=== PATIENT | male | born 1965 | race Caucasian/White ===

== ENCOUNTER 2020-08-07 08:01 | Outpatient (CLI) | payer BC, SELFPAY ==
[2020-08-07 09:34] LABS: Alanine Aminotransferase 27 U/L (16-63); Albumin Level 4.2 g/dL (3.4-5.0); Alkaline Phosphatase 74 U/L (46-116); Anion Gap 7 mmol/L (8-16); Aspartate Amino Transferase 14 U/L (15-37); Bilirubin,Total 0.4 mg/dL (0.00-1.00); Blood Urea Nitrogen 17 mg/dL (7-18); Calcium 9.1 mg/dL (8.5-10.1); Carbon Dioxide 29 mmol/L (21-32); Chloride 100 mmol/L (98-108); Cholesterol 183 mg/dL (0-200); Creatine Kinase 77 U/L (39-308); Estimated Glomerular Filt Rate > 60; Glucose 99 mg/dL (70-99); HDL Direct 50 mg/dL (40-60); LDL Cholesterol Calculated 125 mg/dL (<130); Osmolality Calculated 283 mOsm/kg (285-295); Prostate Specific Antigen 0.3 ng/mL (< OR = 4.0); Sodium 136 mmol/L (136-145); Total Protein 6.8 g/dL (6.4-8.2); Triglycerides 40 mg/dL (0-150)
[2020-08-07 10:40] LABS: Add Urine Microscopic? NO; Appearance Urine Clear (Clear); Bilirubin Urine Negative (Negative); Blood Urine Negative (Negative); Color Urine Yellow (Yellow); Glucose Urine UA Negative (Negative); Ketones Urine Negative (Negative); Leukocyte Esterase Ur Negative LEU/UL (Negative); Nitrate Urine Negative (Negative); Protein Urine Negative (Negative); Specific Grav Ur 1.015 (1.010-1.020); Urobilinogen Urine 0.2 mg/dL (0.2-1.0); pH Urine 5.5 (5.0-8.0)
== END 2020-08-07 08:02 | disposition home or self-care (01) ==
LOC: CHSLAB 08:03
PROVIDERS: PCP Internal Medicine; Visit Provider Internal Medicine
DX: Z00.00 Encounter for general adult medical examination without abnormal findings (principal); Z12.5 Encounter for screening for malignant neoplasm of prostate
CPT/HCPCS: 36415; 80053; 80061; 81003; 82550; 84153; G0103

== ENCOUNTER 2020-08-26 16:13 | Outpatient (CLI) | payer BC, SELFPAY ==
[2020-08-26 16:29] LABS: Basophils Absolute Auto 0.04 K/mm3 (0.00-0.10); Basophils Percent Auto 0.5 % (0.0-1.0); Eosinophils Absolute Auto 0.03 K/mm3 (0.02-0.50); Eosinophils Percent Auto 0.4 % (1.0-6.0); Hemoglobin 12.7 g/dL (14.0-18.0); Immature Granulocyte Absolute 0.03 K/mm3 (0.00-0.00); Immature Granulocyte Percent A 0.4 % (0.0-0.0); Immature Reticulocyte Fraction 6.6 % (2.0-16.52); Lymphocytes Absolute Auto 2.32 K/mm3 (1.10-4.50); Lymphocytes Percent Auto 29.1 % (18.0-42.0); Mean Corpuscular HGB Conc 36.3 g/dL (32.0-36.0); Mean Corpuscular Hemoglobin 33.5 pg (27.0-31.0); Mean Corpuscular Volume 92.3 fL (78.0-102.0); Mean Platelet Volume 8.2 fl (8.7-11.0); Monocytes Absolute Auto 0.59 K/mm3 (0.10-0.90); Monocytes Percent Auto 7.4 % (2.0-11.0); Neutrophils Percent Auto 62.2 % (50.0-70.0); Platelet Count Result 300 K/mm3 (150-420); Red Blood Count 3.79 M/mm3 (4.70-6.10); Red Cell Distribution Width 11.9 % (11.6-14.4); Reticulocyte Hemoglobin Conten 37.5 pg (28.0-35.0); Reticulocyte Percent 1.61 % (0.50-1.50); Reticulocytes Absolute 0.06 M/mm3 (0.02-0.1)
[2020-08-26 17:22] LABS: Ferritin 226 ng/mL (26-388); Iron 88 ug/dL (65-175); Percent Iron Saturation 28 % (12-57); Vitamin B12 567 pg/mL (193-986)
[2020-08-29 12:31] LABS: Red Blood Cell Folate 980 ng/mL RBC (>280)
== END 2020-08-26 16:14 | disposition home or self-care (01) ==
LOC: CHSLAB 16:15
PROVIDERS: PCP Internal Medicine; Visit Provider Internal Medicine
DX: D64.9 Anemia, unspecified (principal)
CPT/HCPCS: 36415; 82607; 82728; 82747; 83540; 83550; 85025; 85046

== ENCOUNTER 2020-08-30 16:42 | Outpatient (CLI) | payer BC, SELFPAY | END 2020-08-30 16:43 | disposition home or self-care (01) | LOC: CHSLAB 16:44 | PROVIDERS: PCP Internal Medicine; Visit Provider Internal Medicine | DX: L81.4 Other melanin hyperpigmentation (principal); L82.0 Inflamed seborrheic keratosis; D22.39 Melanocytic nevi of other parts of face | CPT/HCPCS: 88305 ==

== ENCOUNTER 2020-09-02 13:37 | Outpatient (CLI) | payer BC, SELFPAY ==
[2020-09-02 13:55] LABS: Occult Blood Negative (Negative)
[2020-09-02 13:57] LABS: Occult Blood Negative (Negative)
[2020-09-02 13:58] LABS: Occult Blood Negative (Negative)
== END 2020-09-02 13:38 | disposition home or self-care (01) ==
LOC: CHSLAB 13:38
PROVIDERS: PCP Internal Medicine; Visit Provider Internal Medicine
DX: D64.9 Anemia, unspecified (principal); K52.9 Noninfective gastroenteritis and colitis, unspecified
CPT/HCPCS: 82272

== ENCOUNTER 2021-03-21 17:18 | Emergency (ER) | payer BC, SELFPAY ==
[2021-03-21] VITALS (7 sets, daily range): BP systolic 90–111; BP diastolic 60–76; PULSE 60–183; RESP 16–20; TEMP 36.6; O2SAT 98–99
--- NOTE | ~2021-03-21 | XR_ITS ---
EXAMINATION: XR chest 1V portable INDICATION: Supraventricular tachycardia TECHNIQUE: Portable AP chest at 1753 hours COMPARISON: 11/30/2016 FINDINGS: The lungs are free of acute opacities. There is no pleural effusion or pneumothorax. The ca rdiomediastinal silhouette is normal. The visualized bones and soft tissues are unremarkable. IMPRESSION: 1. No acute cardiopulmonary abnormality. Reviewed, dictated and finalized at location A.
--- NOTE | 2021-03-21 17:31 | ECG_ITS ---
Measurements Intervals [place] Rate: 182 P: WA: 0 QRS: 52 QRSD: 106 T: 90 QT: 247 QTc: 430 Interpretive Statements SUPRAVENTRICULAR TACHYCARDIA INCOMPLETE RIGHT BUNDLE BRANCH BLOCK ST-T WAVE ABNORMALITY IN DIFFUSE LEADS- CONSIDER ISCHEMIA OR RATE RELATED ABNORMAL ECG Electronically Signed On 03-21-2021 20:14:07 CDT by Rashard Quinonez D.O.
--- NOTE | 2021-03-21 17:43 | ECG_ITS ---
Measurements Intervals [place] Rate: 70 P: 65 NE: 223 QRS: 52 QRSD: 109 T: 56 QT: 395 QTc: 428 Interpretive Statements SINUS RHYTHM WITH FIRST DEGREE AV BLOCK ATRIAL PREMATURE COMPLEX INCOMPLETE RIGHT BUNDLE BRANCH BLOCK ABNORMAL ECG Electronically Signed On 03-21-2021 20:14:26 CDT by Rashard Quinonez D.O.
[2021-03-21] MEDS: dilTIAZem HCl INJ 25 MG/5 ML VIAL IV PUSH (17:47)
[2021-03-21] MEDS: SODIUM CHLORIDE 0.9% IV 1,000 ML 999 ML (17:47)
[2021-03-21 17:54] LABS: Basophils Absolute Auto 0.04 K/mm3 (0.00-0.10); Basophils Percent Auto 0.6 % (0.0-1.0); Eosinophils Absolute Auto 0.12 K/mm3 (0.02-0.50); Eosinophils Percent Auto 1.7 % (1.0-6.0); Hematocrit 32.7 % (40.0-54.0); Hemoglobin 11.3 g/dL (14.0-18.0); Immature Granulocyte Absolute 0.02 K/mm3 (0.00-0.00); Immature Granulocyte Percent A 0.3 % (0.0-0.0); Lymphocytes Absolute Auto 2.99 K/mm3 (1.10-4.50); Lymphocytes Percent Auto 41.8 % (18.0-42.0); Mean Corpuscular HGB Conc 34.6 g/dL (32.0-36.0); Mean Corpuscular Hemoglobin 32.9 pg (27.0-31.0); Mean Corpuscular Volume 95.3 fL (78.0-102.0); Mean Platelet Volume 8.1 fl (8.7-11.0); Monocytes Absolute Auto 0.57 K/mm3 (0.10-0.90); Neutrophils Absolute Auto 3.4 K/mm3 (1.7-7.2); Neutrophils Percent Auto 47.6 % (50.0-70.0); Platelet Count Result 268 K/mm3 (150-420); Red Blood Count 3.43 M/mm3 (4.70-6.10); White Blood Count 7.2 K/mm3 (4.8-10.8)
[2021-03-21 18:11] LABS: Alanine Aminotransferase 31 U/L (16-63); Albumin Level 3.7 g/dL (3.4-5.0); Alkaline Phosphatase 64 U/L (46-116); Anion Gap 10 mmol/L (8-16); Aspartate Amino Transferase 24 U/L (15-37); Bilirubin,Total 0.5 mg/dL (0.00-1.00); Blood Urea Nitrogen 20 mg/dL (7-18); Calcium 8.5 mg/dL (8.5-10.1); Carbon Dioxide 25 mmol/L (21-32); Chloride 99 mmol/L (98-108); Estimated CRCL calculation 61 ml/min; Estimated Glomerular Filt Rate > 60; Glucose 155 mg/dL (70-99); Osmolality Calculated 283 mOsm/kg (285-295); Potassium 3.6 mmol/L (3.5-5.1); Sodium 134 mmol/L (136-145); Total Protein 6.1 g/dL (6.4-8.2); Troponin I 5.2 ng/L (0.00-60.4)
--- NOTE | 2021-03-21 19:02 | PC.NURSE ---
paged cardiolgy second time
--- NOTE | 2021-03-21 19:48 | PC.NURSE ---
called again for cardilogy, no return call. Called Kaylee for a consult
--- NOTE | 2021-03-21 20:12 | ED.GENADULT ---
HPI - General Adult General Chief complaint: Unspecified Stated complaint: afib and high heart rate Time Seen by Provider: 03/21/21 17:20 Source: patient and RN notes reviewed Mode of arrival: ambulatory Limitations: no limitations History of Present Illness complaint: heart racing and palpitations x this PM. Onset (ago): hour(s) (1) Location: chest Radiation: non-radiation Severity: moderate Severity scale (1-10): 3 Quality: dull and constant Exacerbating factors: none Associated symptoms: denies other symptoms Treatments prior to arrival: none Related Data Home Medications Medication Instructions Recorded Confirmed albuterol sulfate 90 mcg/actuation 2 puff INHALATION Q4H PRN gm 03/18/20 03/21/21 aerosol inhaler cetirizine 10 mg tablet 10 mg PO DAILY 03/18/20 03/21/21 propafenone 300 mg tablet 300 mg PO Q12H 03/18/20 03/21/21 Allergies Allergy/AdvReac Type Severity Reaction Status Date / Time No Known Allergies Allergy Verified 04/23/20 14:21 Review of Systems Review of Systems: All systems reviewed & are unremarkable except as noted in HPI and below Cardiovascular: Cardiovascular: Reports rapid heart rate PMFSH Past Medical History Medical History Asthma Chronic atrial fibrillation, unspecified History of carpal tunnel syndrome Seasonal allergies Suspected sleep apnea Surgical History Surgical History History of carpal tunnel surgery Social History Social History Smoking status: Former smoker Smoking end date: 06/25/09 Exam Const: General: cooperative, no acute distress and well groomed Nutritional Appearance: well nourished Orientation/consciousness: patient oriented x3 Limitations: no limitations HENMT: Head: normal to inspection, normocephalic and atraumatic Ears: hearing grossly normal bilaterally, external ears normal and TM's normal bilaterally General nose exam: Normal external nose present and Normal nares present Face and sinus: normal facial exam Mouth: Yes Normal oral and palatal mucosa present, Yes oropharynx normal and Yes moist mucous membranes Teeth and gingiva: dentition normal Eyes: General: appearance normal, both eyes and all related structures Pupils: Equal, round and reactive pupils present EOM: EOMs intact bilaterally Neck: Neck: normal visual inspection, full ROM, no lymphadenopathy and trachea midline Chest: Chest palpation & inspection: normal inspection of the chest Resp: Effort & Inspection: normal respiratory effort and able to speak in complete sentences Cardio: Rate: tachycardic Rhythm: abnormal rhythm Peripheral pulses: Peripheral pulses 2+ throughout GI: Inspection: normal to inspection GI Palp: No abdominal tenderness Percussion: Yes normal to percussion Auscultation: normal bowel sounds Back/Spine/Pelvis: Back: no CVA tenderness Thoracic/Lumbar Spine: thoracic and lumbar spine normal to inspection Skin: General skin exam: normal color and no rashes or lesions noted Neuro: General: patient oriented x3, gait normal, no focal motor deficits and CN's II-XI intact bilaterally Cranial nerves: Yes CN's II-XII intact bilaterally, Yes Equal, round and reactive pupils present and Yes Bilaterally intact EOM present Cognition (Neuro): normal cognition Speech: normal speech Gait exam (Neuro): Normal gait present Motor exam (neuro): 5/5 motor strength present throughout Extrem: General: normal to inspection and full ROM Psych: Appearance: grossly normal and well kempt Mental Status: mental status grossly normal Speech and movement: Normal speech and movement present Affect: normal affect Attitude: cooperative Thought process: Normal thought process present Thought content: Yes Normal thought content present Insight: Good insight present (Psych) Judgement: Good judgement prese
== END 2021-03-21 20:15 | disposition home or self-care (01) ==
PROVIDERS: Emergency Provider Emergency Medicine; PCP Internal Medicine
DX: I47.1 Supraventricular tachycardia (principal)
CPT/HCPCS: 36415; 71045; 80053; 84484; 85025; 93005; 96365; 99283; 99284; J7030

== ENCOUNTER 2021-04-14 16:58 | Outpatient (CLI) | payer BC, SELFPAY ==
[2021-04-14 17:13] LABS: Basophils Absolute Auto 0.05 K/mm3 (0.00-0.10); Basophils Percent Auto 0.7 % (0.0-1.0); Eosinophils Absolute Auto 0.06 K/mm3 (0.02-0.50); Eosinophils Percent Auto 0.8 % (1.0-6.0); Hematocrit 38.3 % (40.0-54.0); Hemoglobin 13.1 g/dL (14.0-18.0); Immature Granulocyte Absolute 0.02 K/mm3 (0.00-0.00); Immature Granulocyte Percent A 0.3 % (0.0-0.0); Lymphocytes Absolute Auto 3.39 K/mm3 (1.10-4.50); Lymphocytes Percent Auto 45.1 % (18.0-42.0); Mean Corpuscular HGB Conc 34.2 g/dL (32.0-36.0); Mean Corpuscular Hemoglobin 33.2 pg (27.0-31.0); Mean Corpuscular Volume 97.2 fL (78.0-102.0); Mean Platelet Volume 8.6 fl (8.7-11.0); Monocytes Absolute Auto 0.61 K/mm3 (0.10-0.90); Monocytes Percent Auto 8.1 % (2.0-11.0); Neutrophils Absolute Auto 3.4 K/mm3 (1.7-7.2); Platelet Count Result 272 K/mm3 (150-420); Red Blood Count 3.94 M/mm3 (4.70-6.10); Red Cell Distribution Width 12.3 % (11.6-14.4); White Blood Count 7.5 K/mm3 (4.8-10.8)
[2021-04-14 17:39] LABS: Alanine Aminotransferase 52 U/L (16-63); Albumin Level 4.2 g/dL (3.4-5.0); Alkaline Phosphatase 72 U/L (46-116); Anion Gap 9 mmol/L (8-16); Aspartate Amino Transferase 19 U/L (15-37); Bilirubin,Total 0.4 mg/dL (0.00-1.00); Blood Urea Nitrogen 21 mg/dL (7-18); Calcium 8.8 mg/dL (8.5-10.1); Carbon Dioxide 29 mmol/L (21-32); Chloride 99 mmol/L (98-108); Estimated Glomerular Filt Rate 57; Free T3 2.26 pg/mL (2.18-3.98); Glucose 92 mg/dL (70-99); Magnesium 2.1 mg/dL (1.8-2.4); Osmolality Calculated 287 mOsm/kg (285-295); Potassium 4.9 mmol/L (3.5-5.1); Sodium 137 mmol/L (136-145); Thyroid Stimulating Hormone 1.36 uIU/mL (0.36-3.74); Total Protein 7.1 g/dL (6.4-8.2)
== END 2021-04-14 16:59 | disposition home or self-care (01) ==
LOC: CHSLAB 16:59
PROVIDERS: PCP Internal Medicine; Visit Provider Internal Medicine
DX: I47.1 Supraventricular tachycardia (principal)
CPT/HCPCS: 36415; 80053; 83735; 84439; 84443; 84481; 85025

== ENCOUNTER 2021-06-06 11:38 | Outpatient (CLI) | payer BC, SELFPAY ==
[2021-06-06 13:05] LABS: Influenza A QL RT-PCR Negative (Negative); Influenza B QL RT-PCR Negative (Negative); SARS-CoV-2 RNA PCR Negative (Negative)
== END 2021-06-06 11:39 | disposition home or self-care (01) ==
LOC: CHSLAB 11:41
PROVIDERS: PCP Internal Medicine; Visit Provider Internal Medicine
DX: J06.9 Acute upper respiratory infection, unspecified (principal)
CPT/HCPCS: 87502; C9803; U0003; U0005

== ENCOUNTER 2022-02-07 14:09 | Outpatient (CLI) | payer BC, SELFPAY ==
[2022-02-07 14:39] LABS: Anion Gap 8 mmol/L (8-16); Blood Urea Nitrogen 27 mg/dL (7-18); Calcium 9.1 mg/dL (8.5-10.1); Carbon Dioxide 27 mmol/L (21-32); Chloride 99 mmol/L (98-108); Estimated Glomerular Filt Rate > 60; Glucose 107 mg/dL (70-99); Osmolality Calculated 283 mOsm/kg (285-295); Potassium 4.4 mmol/L (3.5-5.1); Sodium 134 mmol/L (136-145)
--- NOTE | 2022-02-07 14:50 | ECG_ITS ---
Rate 115 ME 0 QRSd 90 QT 330 QTc 457 --Melvin-- P QRS 29 T 34 ATRIAL FIBRILLATION WITH RAPID VENTRICULAR RESPONSE NONSPECIFIC ST & T-WAVE ABNORMALITY ABNORMAL RHYTHM ECG Electronically Signed On 02-07-2022 15:16:36 CDT by Gerber Fernando M.D. COMPARED TO ECG 03/21/2021 17:48:19 ATRIAL FIBRILLATION NOW PRESENT T-WAVE ABNORMALITY NOW PRESENT MTDD
== END 2022-02-07 14:10 | disposition home or self-care (01) ==
LOC: CHSLAB 14:14
PROVIDERS: PCP Internal Medicine
DX: Z51.81 Encounter for therapeutic drug level monitoring (principal); Z79.899 Other long term (current) drug therapy
CPT/HCPCS: 36415; 80048; 93005

== ENCOUNTER 2022-04-28 11:04 | Outpatient (CLI) | payer BC, SELFPAY ==
[2022-04-28 11:20] LABS: Basophils Absolute Auto 0.05 K/mm3 (0.00-0.10); Basophils Percent Auto 0.7 % (0.0-1.0); Eosinophils Absolute Auto 0.04 K/mm3 (0.02-0.50); Eosinophils Percent Auto 0.6 % (1.0-6.0); Hematocrit 37.9 % (40.0-54.0); Hemoglobin 13.5 g/dL (14.0-18.0); Immature Granulocyte Absolute 0.02 K/mm3 (0.00-0.00); Immature Granulocyte Percent A 0.3 % (0.0-0.0); Lymphocytes Absolute Auto 2.51 K/mm3 (1.10-4.50); Lymphocytes Percent Auto 37.6 % (18.0-42.0); Mean Corpuscular HGB Conc 35.6 g/dL (32.0-36.0); Mean Corpuscular Hemoglobin 33.6 pg (27.0-31.0); Mean Corpuscular Volume 94.3 fL (78.0-102.0); Mean Platelet Volume 8.6 fl (8.7-11.0); Monocytes Absolute Auto 0.61 K/mm3 (0.10-0.90); Monocytes Percent Auto 9.1 % (2.0-11.0); Neutrophils Absolute Auto 3.4 K/mm3 (1.7-7.2); Neutrophils Percent Auto 51.7 % (50.0-70.0); Platelet Count Result 259 K/mm3 (150-420); Red Blood Count 4.02 M/mm3 (4.70-6.10); Red Cell Distribution Width 11.8 % (11.6-14.4); White Blood Count 6.7 K/mm3 (4.8-10.8)
[2022-04-28 11:48] LABS: Alanine Aminotransferase 35 U/L (16-63); Albumin Level 4.2 g/dL (3.4-5.0); Alkaline Phosphatase 70 U/L (46-116); Anion Gap 9 mmol/L (8-16); Aspartate Amino Transferase 23 U/L (15-37); Bilirubin,Total 0.7 mg/dL (0.00-1.00); Blood Urea Nitrogen 25 mg/dL (7-18); Calcium 9.3 mg/dL (8.5-10.1); Carbon Dioxide 25 mmol/L (21-32); Chloride 100 mmol/L (98-108); Cholesterol 160 mg/dL (0-200); Creatine Kinase 183 U/L (39-308); Estimated Glomerular Filt Rate > 60; Free T3 2.04 pg/mL (2.18-3.98); Free T4 Free Thyroxine 0.98 ng/dL (0.76-1.46); Glucose 105 mg/dL (70-99); HDL Direct 63 mg/dL (40-60); LDL Cholesterol Calculated 87 mg/dL (<130); Osmolality Calculated 282 mOsm/kg (285-295); Potassium 4.6 mmol/L (3.5-5.1); Prostate Specific Antigen 0.4 ng/mL (< OR = 4.0); Sodium 134 mmol/L (136-145); Thyroid Stimulating Hormone 1.18 uIU/mL (0.36-3.74); Total Protein 7.2 g/dL (6.4-8.2); Triglycerides 52 mg/dL (0-150)
[2022-04-28 12:35] LABS: Appearance Urine Clear (Clear); Bilirubin Urine Negative (Negative); Color Urine Yellow (Yellow); Glucose Urine UA Negative (Negative); Ketones Urine Trace (Negative); Leukocyte Esterase Ur Negative LEU/UL (Negative); Nitrate Urine Negative (Negative); Protein Urine Negative (Negative); Specific Grav Ur 1.015 (1.010-1.020); Urobilinogen Urine 0.2 mg/dL (0.2-1.0)
[2022-04-28 12:40] LABS: Add Urine Microscopic? YES; Bacteria Urine None seen /hpf; Blood Urine Trace-lysed (Negative); RBC Urine None seen /hpf (0-2); Squamous Epithelial Cell Urine Rare /hpf (Few); WBC Urine None seen /hpf (0-3)
== END 2022-04-28 11:05 | disposition home or self-care (01) ==
LOC: CHSLAB 11:06
PROVIDERS: PCP Internal Medicine; Visit Provider Internal Medicine
DX: Z00.00 Encounter for general adult medical examination without abnormal findings (principal); Z12.5 Encounter for screening for malignant neoplasm of prostate
CPT/HCPCS: 36415; 80053; 80061; 81001; 82550; 84153; 84439; 84443; 84481; 85025; G0103

== ENCOUNTER 2023-08-03 16:51 | Outpatient (CLI) | payer BC, SELFPAY ==
--- NOTE | ~2023-08-03 | XR_ITS ---
EXAMINATION: XR chest 2V DATE: 08/03/2023 17:51 INDICATION: Cough. TECHNIQUE: Frontal and lateral views of the chest were obtained on 3 radiographs. COMPARISON: Chest single view 03/21/2021 FINDINGS: There is no pneumonia, pleural effusion, or pneumothorax. The heart size is normal. IMPRESSION: 1. No acute cardiopulmonary disease. Reviewed, dictated and finalized at location E. INE FURNACE TENDER
[2023-08-03 17:42] LABS: SARS-CoV-2 RNA PCR Negative (Negative)
[2023-08-03 17:43] LABS: Influenza A QL RT-PCR Negative (Negative); Influenza B QL RT-PCR Negative (Negative); RSV RNA, RT-PCR Negative (Negative)
== END 2023-08-03 16:52 | disposition home or self-care (01) ==
LOC: CHSLAB 16:54
PROVIDERS: PCP Internal Medicine; Visit Provider Internal Medicine
DX: R05.9 Cough, unspecified (principal); Z20.822 Contact with and (suspected) exposure to COVID-19
CPT/HCPCS: 71046; 87637

== ENCOUNTER 2023-08-04 09:30 | Outpatient (CLI) | payer BC, SELFPAY ==
[2023-08-04 09:44] LABS: Basophils Absolute Auto 0.03 K/mm3 (0.00-0.10); Basophils Percent Auto 0.6 % (0.0-1.0); Eosinophils Absolute Auto 0.03 K/mm3 (0.02-0.50); Eosinophils Percent Auto 0.6 % (1.0-6.0); Hemoglobin 12.8 g/dL (14.0-18.0); Immature Granulocyte Absolute 0.01 K/mm3 (0.00-0.00); Immature Granulocyte Percent A 0.2 % (0.0-0.0); Lymphocytes Absolute Auto 2.32 K/mm3 (1.10-4.50); Lymphocytes Percent Auto 49.6 % (18.0-42.0); Mean Corpuscular HGB Conc 33.7 g/dL (32.0-36.0); Mean Platelet Volume 8.2 fl (8.7-11.0); Monocytes Absolute Auto 0.46 K/mm3 (0.10-0.90); Monocytes Percent Auto 9.8 % (2.0-11.0); Neutrophils Absolute Auto 1.8 K/mm3 (1.7-7.2); Neutrophils Percent Auto 39.2 % (50.0-70.0); Platelet Count Result 283 K/mm3 (150-420); Red Cell Distribution Width 12.3 % (11.6-14.4); White Blood Count 4.7 K/mm3 (4.8-10.8)
[2023-08-04 10:03] LABS: Hemoglobin A1C 5.2 % (<5.7)
[2023-08-04 10:21] LABS: Alanine Aminotransferase 29 U/L (16-63); Albumin Level 3.5 g/dL (3.4-5.0); Alkaline Phosphatase 66 U/L (46-116); Anion Gap 7 mmol/L (8-16); Aspartate Amino Transferase 21 U/L (15-37); Bilirubin,Total 0.5 mg/dL (0.00-1.00); Blood Urea Nitrogen 24 mg/dL (7-18); Calcium 8.4 mg/dL (8.5-10.1); Carbon Dioxide 29 mmol/L (21-32); Chloride 98 mmol/L (98-108); Cholesterol 151 mg/dL (0-200); Creatine Kinase 119 U/L (39-308); Estimated Glomerular Filt Rate > 60; Free T3 1.94 pg/mL (2.18-3.98); Glucose 104 mg/dL (70-99); HDL Direct 55 mg/dL (40-60); LDL Cholesterol Calculated 92 mg/dL (<130); Osmolality Calculated 282 mOsm/kg (285-295); Potassium 4.5 mmol/L (3.5-5.1); Sodium 134 mmol/L (136-145); Thyroid Stimulating Hormone 0.93 uIU/mL (0.36-3.74); Total Protein 6.4 g/dL (6.4-8.2); Triglycerides < 22 mg/dL (0-150)
[2023-08-04 10:49] LABS: Appearance Urine Clear (Clear); Bilirubin Urine Negative (Negative); Color Urine Light Yellow (Yellow); Glucose Urine UA Negative (Negative); Ketones Urine Negative (Negative); Nitrate Urine Negative (Negative); Protein Urine Negative (Negative); Urobilinogen Urine 0.2 mg/dL (0.2-1.0)
[2023-08-04 11:31] LABS: Add Urine Microscopic? NO; Blood Urine Negative (Negative); Leukocyte Esterase Ur Negative LEU/UL (Negative)
== END 2023-08-04 09:31 | disposition home or self-care (01) ==
PROVIDERS: PCP Internal Medicine; Visit Provider Internal Medicine
DX: N39.0 Urinary tract infection, site not specified (principal); D64.9 Anemia, unspecified; R73.01 Impaired fasting glucose; E78.5 Hyperlipidemia, unspecified; Z12.5 Encounter for screening for malignant neoplasm of prostate; R53.83 Other fatigue; R82.90 Unspecified abnormal findings in urine
CPT/HCPCS: 36415; 80053; 80061; 81001; 81003; 82550; 83036; 84439; 84443; 84481; 85025

== ENCOUNTER 2023-08-07 14:32 | Outpatient (CLI) | payer BC, SELFPAY ==
[2023-08-07 15:02] LABS: Prostate Specific Antigen 0.2 ng/mL (< OR = 4.0)
== END 2023-08-07 14:33 | disposition home or self-care (01) ==
LOC: CHSLAB 14:34
PROVIDERS: PCP Internal Medicine; Visit Provider Internal Medicine
DX: Z12.5 Encounter for screening for malignant neoplasm of prostate (principal)
CPT/HCPCS: 36415; 84153; G0103

== ENCOUNTER 2024-01-24 01:42 | Day surgery (SDC) | payer BC, SELFPAY ==
[2024-01-09 16:06] VITALS: BMI 24.3
--- NOTE | 2024-01-21 13:06 | PC.NURSE ---
called pt regarding Eliquis and pt. stated it was stopped at last office appt. at Dr. Garfield Garcia office on 01/11/2024.
[2024-01-24 08:29] VITALS: BP 158/72; PULSE 54; RESP 18; TEMP 36.1; O2SAT 100; BMI 24.4
[2024-01-24] MEDS: LACTATED RINGERS 1,000 ML 150 ML IV CONT (08:37)
--- NOTE | 2024-01-24 08:48 | P.PNAN_ITS ---
Anes - Initial Pre Proc Eval Procedure: Operation Date: 01/24/24 10:15 Proposed Procedures p Colonoscopy - Matti Zuleta DO Date/Time: 01/24/24 08:48 Surgeon: Matti Zuleta DO Pre Op Diagnosis: previous ulcerative colonoscopy Patient Data Age: 58 Gender: M Height: 1.68 m Weight: 68.7 kg Last Vital Signs Temp 97 F L 01/24/24 08:29 Pulse 54 L 01/24/24 08:29 Resp 18 01/24/24 08:29 BP 158/72 H 01/24/24 08:29 Pulse Ox 100 01/24/24 08:29 O2 Del Method Room Air 01/24/24 08:29 Allergies Allergy/AdvReac Type Severity Reaction Status Date / Time No Known Allergies Allergy Verified 01/24/24 08:28 Home Medications Medication Instructions Recorded Confirmed Type albuterol sulfate 90 mcg/actuation 2 puff inhalation Q4H PRN Cough 03/18/20 01/24/24 History aerosol inhaler (ProAir HFA) cetirizine 10 mg tablet (Zyrtec) 10 mg PO DAILY 03/18/20 01/24/24 History apixaban 5 mg tablet (Eliquis) 5 mg PO BID 01/09/24 01/24/24 History fluticasone furoate 100 1 inhalation inhalation Q24H PRN 01/09/24 01/24/24 History mcg/actuation blister powder for Shortness Of Breath inhalation (Arnuity Ellipta) metoprolol tartrate 50 mg tablet 50 mg PO BID 01/09/24 01/24/24 History (Lopressor) pravastatin 10 mg tablet 10 mg PO HS 01/09/24 01/24/24 History Patient hx anesthesia problems: none Family hx anesthesia problems: none Results Review: All pre-operative results and documents have been reviewed as part of the pre- operative evaluation. [facility] Past Medical History Medical History Asthma Chronic atrial fibrillation, unspecified History of carpal tunnel syndrome Seasonal allergies Suspected sleep apnea Surgical History Surgical History History of carpal tunnel surgery Social History Social History Smoking packs per day: 0.5 Smoking cigarettes per day: 10.0 Years smoked: 16 Smoking pack-years: 8.00 Smoking status: Former smoker Tobacco type: cigarettes Smoking end date: 06/25/09 Alcohol intake: current Drinks per week: 5 Alcohol use details: BEERS Substance use: never Substance use type: does not use Living arrangements: with family Spiritual care concerns: No Anes - Eval Final PreProcedure Day of Procedure 01/24/24 08:48 Patient weight: normal Heart: regular rate and rhythm Lungs: clear to auscultation Airway: Mallampati scale class II Neurological: alert and oriented Last oral intake: >/= 8 hours ASA classification: III Emergent: no Anesthetic plan: proceed Anesthesia type and monitoring: general GIVS and standard monitoring Results Review: All pre-operative results and documents have been reviewed as part of the pre- operative evaluation. Informed Consent: The patient's anesthetic plan and its attendant risks and benefits were discussed with the patient/family/POA. Questions were solicited and answers provided to the satisfaction of the patient/family/POA.
--- NOTE | 2024-01-24 08:52 | PM.IMHP ---
H&P: HPI History of Present Illness Date/Time: 01/24/24 08:52 Chief Complaint: screening for colorectal cancer Narrative: this is a 58-year-old man who presents for colonoscopy. His last colonoscopy was about 10 years ago. He has a history of ulcerative colitis but is not on any current medications. He denies any family history of colon cancer denies any hematochezia or melena. Review of Systems Review of Systems: All systems reviewed & are unremarkable except as noted in HPI and below Constitutional: Constitutional: Denies chills, Denies fever(s), Denies headache(s) and Denies weight loss Eyes: Eyes: Denies change in vision ENT: Denies dizziness, Denies headache(s), Denies neck mass and Denies throat swelling Cardiovascular: Cardiovascular: Denies chest pain, Denies lightheadedness and Denies dyspnea Respiratory: Respiratory: Denies cough, Denies dyspnea and Denies wheezing Gastrointestinal: Gastrointestinal: Denies abdominal pain, Denies change in bowel habits, Denies nausea and Denies vomiting Genitourinary: Genitourinary: Denies hematuria and Denies dysuria Musculoskeletal: Musculoskeletal: Reports as per HPI Integumentary/Breasts: Skin/Breast: Reports as per HPI Neurologic: Denies dizziness and Denies headache(s) Allergic/Immunologic: Allergic/Immunologic: Denies throat swelling and Denies wheezing PMFSH Past Medical History Medical History Asthma Chronic atrial fibrillation, unspecified History of carpal tunnel syndrome Seasonal allergies Suspected sleep apnea Surgical History Surgical History History of carpal tunnel surgery Social History Social History Smoking packs per day: 0.5 Smoking cigarettes per day: 10.0 Years smoked: 16 Smoking pack-years: 8.00 Smoking status: Former smoker Tobacco type: cigarettes Smoking end date: 06/25/09 Alcohol intake: current Drinks per week: 5 Alcohol use details: BEERS Substance use: never Substance use type: does not use Living arrangements: with family Spiritual care concerns: No Meds Home Medications and Allergies Home Medications Medication Instructions Recorded Confirmed Type albuterol sulfate 90 mcg/actuation 2 puff inhalation Q4H PRN Cough 03/18/20 01/24/24 History aerosol inhaler (ProAir HFA) cetirizine 10 mg tablet (Zyrtec) 10 mg PO DAILY 03/18/20 01/24/24 History apixaban 5 mg tablet (Eliquis) 5 mg PO BID 01/09/24 01/24/24 History fluticasone furoate 100 1 inhalation inhalation Q24H PRN 01/09/24 01/24/24 History mcg/actuation blister powder for Shortness Of Breath inhalation (Arnuity Ellipta) metoprolol tartrate 50 mg tablet 50 mg PO BID 01/09/24 01/24/24 History (Lopressor) pravastatin 10 mg tablet 10 mg PO HS 01/09/24 01/24/24 History Allergies Allergy/AdvReac Type Severity Reaction Status Date / Time No Known Allergies Allergy Verified 01/24/24 08:28 Vital Signs Vital Signs - 24 hr 01/24/24 08:29 Temperature 36.1 C L Pulse Rate 54 L Respiratory Rate 18 Blood Pressure 158/72 H Pulse Oximetry 100 Oxygen Delivery Room Air Exam Const: General: no acute distress and alert Orientation/consciousness: patient oriented x3 HENMT: Head: normocephalic and atraumatic Ears: hearing grossly normal bilaterally Face/Nose/Sinus: Normal nares present Mouth: Yes Normal oral and palatal mucosa present Eyes: Periorbital: periorbital findings normal Sclera: sclerae normal EOM: EOMs intact bilaterally Neck: Neck: normal visual inspection, no lymphadenopathy and trachea midline Chest: Chest palpation & inspection: normal inspection of the chest Resp: Effort & Inspection: normal respiratory effort Auscultation: clear to auscultation bilaterally Cardio: Jugular venous distension: no JVD Rate: regular rate Rhy
[2024-01-24 09:10] VITALS: BP 124/79; PULSE 57; RESP 15; O2SAT 100
[2024-01-24 09:20] VITALS: BP 140/77; PULSE 52; RESP 17; O2SAT 100
[2024-01-24 09:30] VITALS: BP 138/75; PULSE 50; RESP 17; O2SAT 100
== END 2024-01-24 09:38 | disposition home or self-care (01) ==
PROVIDERS: PCP Internal Medicine; Visit Provider Surgery
PROC: 0DJD8ZZ Inspection of Lower Intestinal Tract, Via Natural or Artificial Opening Endoscopic (ICD-10-PCS; CPT 45378; principal; 2024-01-24 10:15)
DX: Z12.11 Encounter for screening for malignant neoplasm of colon (principal); J45.909 Unspecified asthma, uncomplicated; I48.20 Chronic atrial fibrillation, unspecified; Z79.51 Long term (current) use of inhaled steroids; Z79.01 Long term (current) use of anticoagulants; Z98.890 Other specified postprocedural states; Z87.891 Personal history of nicotine dependence
CPT/HCPCS: 45378; J2704; J7120

== ENCOUNTER 2024-09-03 16:08 | Outpatient (CLI) | payer BC, SELFPAY ==
[2024-09-03 16:47] LABS: Anion Gap 8 mmol/L (4-12); Blood Urea Nitrogen 19 mg/dL (7-18); Calcium 8.9 mg/dL (8.5-10.1); Carbon Dioxide 26 mmol/L (21-32); Chloride 90 mmol/L (98-108); Estimated Glomerular Filt Rate > 60; Glucose 123 mg/dL (70-99); Osmolality Calculated 261 mOsm/kg (285-295); Potassium 4.6 mmol/L (3.5-5.1); Sodium 124 mmol/L (136-145)
[2024-09-03 16:56] LABS: Prostate Specific Antigen < 0.1 ng/mL (< OR = 4.0)
--- OUTSIDE RECORDS SUMMARY | 2024-09-03 17:45 | XMS_ITS | Encounter Summary ---
Author Organization [facility] Address [address] [place] [address] Phone Care Team Providers Care Application Release Manager Name Role Phone All Guerra MD Primary Care Provider [phone] Encounter Details Date Type Department Care Team (Late st Contact Info) Description 09/03/2024 Telephone [facility] Cardiology [address] [facility] Advanced Medicine 8th [place] [address] [place] [id number] Garfield Mcdonald MD PhD [address] [facility] [address] [place], [place] [id number] Social History Tobacco Use Types Packs/Day Years Used Date Smoking Tobacco: Former Cigarettes 0.5 20 0 07/26/1992 - 07/26/2012 Smokeless Tobacco: Never AUDIT-C Answer Date Recorded Q1: How often do you have a drink containing alc ohol? 2-3 times a week 2022 Q2: How many drinks containi ng alcohol do you have on a typical day when you are drinking? 5 or 6 2022 Q3: How often do you have si x or more drinks on one occasion? 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 documented in this encounter Plan of Treatment Not on file documented as of this encounter Visit Diagnoses Not on filedocumented in this encounter Care Teams Application Release Manager Relationship Specialty Start Date End Date All Guerra MD [address] [place] [address] PCP - General 01/10/17 documented as of this encounter
--- OUTSIDE RECORDS SUMMARY | 2024-09-03 17:45 | XMS_ITS | Encounter Summary ---
Author Organization [facility] Address [address] [place] [address] Phone Care Team Providers Care Upkeep Worker Name Role Phone All Guerra MD Primary Care Provider [phone] Encounter Details Date Type Department Care Team (Late st Contact Info) Description 04/16/2018 Telephone [facility] Cardiology [address] [facility] [address] Medicine [address]th [place] [address] [place] [address] Ashley Car, MPH Social History Tobacco Use Types Packs/Day Years Used Date Smoking Tobacco: Former Sex and Gender Information Value Date Recorded Sex Assigned at Not on file 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
--- OUTSIDE RECORDS SUMMARY | 2024-09-03 17:45 | XMS_ITS | Clinical Summary ---
Author Organization [facility] Care Team Providers Care Hand Heel Seat Fitter Name Role Phone Unavailable Primary Care Provider Unavailabl e Medications mesalamine (ASACOL HD) 800 MG Tablet Delayed Response Take two tablets by mouth three times daily 180 Tab 3 02/03/2016 Active folic acid (FOLVITE) 1 MG Tablet TAKE 1 TABLET BY MOUTH EVERY DAY 30 Tab 4 12/06/2016 Active Social History Tobacco Use Types Packs/Day Years Used Date Smoking Tobacco: Never Assessed Sex and Gender Information Value Date Recorded Sex Assigned at Not on file Legal Sex Male 11:15 PM CDT Gender Identity Not on file Sexual Orientation Not on file Plan of Treatment Health Maintenance Due Date Last Done Comments Hepatitis C Virus (HCV) Screening 1965 TdaP Immunization 1965 Colonoscopy 2008 Colorectal Cancer Screening 2008 Cologuard 2013 Immunochemical Fecal Occult Blood 2013 Pneumococcal Immunization (5 0+ years) (1 of 1 - PCV) 2013 Zoster Immunization (1 of 2) 2013 PSA Discussion 2018 Influenza Immunization (#1) 2024 SARS-COV-2 Immunization (2023- season) 2024 Respiratory Syncytial Virus (RSV) Immunization (Adult) (1 - 1-dose 75+ series) 2038 Hepatitis B Immunization Aged Out No longer eligible based on patient's age to complete this topic Meningococcal Immunization (ACWY) Aged Out No longer eligible based on patient's age to complete this topic Pneumococcal Immunization Combined Aged Out No longer eligible based on patient's age to complete this topic Rotavirus Immunization Aged Out No lo nger eligible based on patient's age to complete this topic
--- OUTSIDE RECORDS SUMMARY | 2024-09-03 17:45 | XMS_ITS | Encounter Summary ---
Author Organization 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 Gender Identity Not on file Sexual Orientation Not on file documented as of this encounter Plan of Treatment Not on file documented as of this encounter Procedures Procedure Name Priority Date/Time Associated Diagnosis Comments CARDIOLOGY DOCUMENT SCAN 05/26/2021 documented in this encounter Results * SCAN - CARDIOLOGY (05/26/2021) Anatomical Region Laterality Modality Other us Provider Scanning CV CARDIAC SERVICES PROCEDURES Final Result documented in this encounter Visit Diagnoses Not on filedocumented in this encounter Care Teams Environmental Test Technician Relationship Specialty Start Date End Date All Guerra MD [address] [place] [address] PCP - General 01/10/17 documented as of this encounter
--- OUTSIDE RECORDS SUMMARY | 2024-09-03 17:45 | XMS_ITS | Encounter Summary ---
Author Organization [facility] Address [address] [place] [address] Phone Care Team Providers Care Image Scientist Name Role Phone All Guerra MD Primary Care Provider Encounter Details Date Type Department Care Team (Late st Contact Info) Description 04/25/2018 Telephone [facility] Cardiology [address] [facility] Advanced Medicine 8th [place] [address] [place] [address] Mony Loyola MD [address] [place] [address] Social History Tobacco Use Types Packs/Day Years Used Date Smoking Tobacco: Former Sex and Gender Information Value Date Recorded Sex Assigned at Not on file 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
--- OUTSIDE RECORDS SUMMARY | 2024-09-03 17:45 | XMS_ITS | Clinical Summary ---
Author Organization [facility] Address [address] [place] [address] Care Team Providers Care Paleobotanist Name Role Phone Unavailable Primary Care Provider Unavailabl e Social History Tobacco Use Types Packs/Day Years Used Date Smoking Tobacco: Never Assessed Sex and Gender Information Value Date Recorded Sex Assigned at Not on file Legal Sex Male 7:41 PM CDT Gender Identity Not on file Sexual Orientation Not on file Plan of Treatment Health Maintenance Due Date Last Done Comments Colorectal Cancer Screening Colonoscopy (10 Years) 1963 Annual Physical 1966 Hepatitis C 1981 DTaP, Tdap and Td Vaccines ( 1 - Tdap) 1982 Zoster Vaccines (1 of 2) 2013 COVID-19 Vaccine ( - 2023-2 5 season) 2024 Influenza Adult (#1) 2024 RSV Immunization or 60+ Years (1 - 1-dose 75+ series) 2038 Meningococcal B Vaccine Aged Out No l onger eligible based on patient's age to complete this topic Meningococcal Vaccine Aged Out No jesika jamar eligible based on patient's age to complete this topic Pneumococcal Vaccine: Pediat rics (0 to 5 Years) and At-Risk Patients (6 to 64 Years) Aged Out No longer eligible b ased on patient's age to complete this topic RSV Immunizations Under 20 Months Aged Out No longer eligible based on patient's age to complete this topic
--- OUTSIDE RECORDS SUMMARY | 2024-09-03 17:45 | XMS_ITS | Continuity of Care Document ---
Author Organization [facility] Address [address] [facility] [place] [address] Phone Care Team Providers Care Manager Control Name Role Phone Oleg MS, OTR/L, Farida JACKSON Unavailable Unavailable Procedures Procedure Date OT RE-EVALUATION THERAPEUTIC EXERCISES FUNC ACTIVITY HOT/COLD PACK THERAPEUTIC EXERCISES FUNC ACTIVITY OT EVALUATION THERAPEUTIC EXERCISES Advance Directives Directive Yes / No Effective Date File Name No Information Encounters Encounter Description Practice Location Reason(s) For Visit Diagnoses Date Provider Providers Copied on Encounter [facility] [address] [place] [address], [id number], tel:[phone] [facility] No Information 4 Oleg Iqbal. [address] [facility], [facility] [address], [place], [facility] [place][note 2], . tel:[phone], [id number], tel:[phone] [facility] No Information 4 Oleg Iqbal. [address] [facility], [facility] [address], [place], [facility] [place][note 2], . tel:[phone] Referring Provider: Blas Loyola, [address] [facility] [address], [place], [address]. tel:[phone] [facility] [address], [id number], tel:[phone] [facility] No Information 4 Oleg Iqbal. [address] [facility], [address], [place], [place], [facility] [place][note 2], . tel:[phone] Referring Provider: Blas Loyola, [address] [facility] [address], [place], [address]. tel:[phone] [facility] [address], [id number], tel:[phone] [facility] Pain in joint involving hand 4 Oleg Iqbal. [address] [facility], [address], [place], [address], . tel:[phone] Referring Provider: Blas Loyola, [address] [facility] [address], [place], [address]. tel:[phone] Family History Family Member Type Diagnosis Age At Onset No Information Payers Payer name Insurance type Covered libertarian ID Allyson dunneric(s) [place] [id number] Social History Type Description Quantity Date Captured [...]
--- OUTSIDE RECORDS SUMMARY | 2024-09-03 17:45 | XMS_ITS | Clinical Summary ---
Author Organization [facility] Address [address] [place] [address] Care Team Providers Care Scheduling Specialist Name Role Phone All Guerra MD Primary Care Provider Allergies No known active allergies Medications busPIRone (BUSPAR) 10 mg tabletIndicatio ns:Generalized Anxiety Disorder Take 1 tablet (10 mg total) by mouth 2 (two) times a day 01/15/2021 Active pravastatin (PRAVACHOL) 10 mg tablet Take 1 tablet (10 mg total) by mouth daily after dinner 11/29/2020 Active metoprolol tartrate (LOPRESSOR) 50 mg immediate release tablet Take 1 tablet (50 mg total) by mouth 2 (two) times a day 04/16/2021 Active MULTIVITAMIN ORAL Take 1 tablet by mouth every morning Active apixaban (ELIQUIS) 5 mg tablet Take 1 tablet (5 mg total) by mouth 2 (two) times a day 180 tablet 12/21/2023 Active Active Problems Problem Noted Date Diagnosed Date HLD (hyperlipidemia) 09/16/2021 Assessment & Plan (06/21/2022 8:22 AM SAMPLE HAND): -Continue statin Assessment & Plan (09/18/2021 10:28 AM CDT): Check lipid panel with admission labs -Continue atorvastatin Assessment & Plan (09/17/2021 10:27 AM CDT): Check lipid panel with admission labs -Continue atorvastatin Assessment & Plan (09/16/2021 6:01 PM CDT): Check lipid panel with admission labs -Continue atorvastatin Asthma 09/16/2021 Assessment & Plan (09/19/2021 11:04 AM CDT): Mild and well controlled with use of allergy medication, pt reports he only uses his home inhalers about once a month -Continue home Arnuity Ellipta and PRN albuterol inhalers Assessment & Plan (09/18/2021 10:27 AM CDT): Mild and well controlled with use of allergy medication, pt reports he only uses his home inhalers about once a month -Continue home Arnuity Ellipta and PRN albuterol inhalers Assessment & Plan (09/17/2021 10:27 AM CDT): Mild and well controlled with use of allergy medication, pt reports he only uses his home inhalers about once a month -Continue home Arnuity Ellipta and PRN albuterol inhalers Assessment & Plan (09/16/2021 6:31 PM CDT): Mild and well controlled with use of allergy medication, pt reports he only uses his home inhalers about once a month -Continue home Arnuity Ellipta and PRN albuterol inhalers Atrial fibrillation 07/12/2018 Assessment & Plan (01/11/2024 1:28 PM CDT): Paroxysmal atrial fibrillation s/p PVI ablation 2022 Recent palpitations have subsided. SR today. If arrhythmias recur, will obtain event monitor Stop Eliquis - [id number] score 0 Continue metoprolol 50 mg BID Follow up in 6 months, sooner as needed Assessment & Plan (10/31/2022 10:08 AM CDT): Paroxysmal atrial fibrillation s/p PVI ablation 2022 He had limited early AF recurrence, no AF in the past several months Stop dofetilide Continue metoprolol 50 mg BID No longer on oral anticoagulation - [id number] score 0 He has samples of Eliquis to take if he has a prolonged episode of AF Encouraged him to limit alcohol intake Continue regular exercise Follow up in 6 months, sooner as needed Assessment & Plan (07/20/2022 4:10 PM SAMPLE HAND): Paroxysmal atrial fibrillation s/p PVI ablation 2022 He is doing well post ablation with limited AF recurrence Continue dofetilide 250 mcg BID until follow up in 3 months. If no AF recurrence, can consider discontinuing dofetilide at that time He completed 1 month of PPI Continue Eliquis anticoagulation until follow up Continue metoprolol Encouraged him to limit alcohol intake Continue regular exercise Follow up in 3 months, sooner as needed Assessment & Plan (06/21/2022 8:22 AM SAMPLE HAND): S/p AFib ablation on 06/20. Feels well. No CP or dyspnea. NSR on tele. - dc home per EP - continue eliquis x3 months - continue PPI x1 month - Continue metoprolol - Continue tikosyn - provided all post ablation instructions/restrictions - He will f/u with EP as scheduled. Assessment & Plan (09/19/2021 11:04 AM CDT): History of atrial fibrillation for the last 5 years or so. Patient reports worsened tachypalpitations after receiving his second COVID-19 vaccination in March of 2021. Ambulatory monitoring revealed paroxysms of atrial fibrillation/flutter . He was prescribed propafenone and metoprolol. Echo in 2017 was normal except for mild to moderate dilation of the left atrium (LA volume index 42.6; normal: 16-34). He reports cotinuing episodes of atrial fibrillation despite his propafenone and metoprolol. He now follows with Dr. Mcdonald and they discussed moving forward with a change in rhythm control therapies at his last appointment. Now admitted for elective dofetilide drug load. -CHADSVASC = 1 (EF 47%), holding off anticoagulation after discussion with patient of risks/benefits -Home propafernone discontinued (last dose on 09/12) Dofetilide load going well , with plans to give dose 6 at noon today and discharge if last ekg remains stable Called his retail pharmacy and they do carry dose of 250 mcg - -EKGs 2 hours after each dose to monitor QTc interval -Continue home metoprolol tartrate 50 mg BID -Continuous uninterrupted telemetry monitoring -Keep K > 4.0 & Mg > 2.0, replete as indicated Assessment & Plan (09/18/2021 10:32 AM CDT): History of atrial fibrillation for the last 5 years or so. Patient reports worsened tachypalpitations after receiving his second COVID-19 vaccination in March of 2021. Ambulatory monitoring revealed paroxysms of atrial fibrillation/flutter . He was prescribed propafenone and metoprolol. Echo in 2017 was normal except for mild to moderate dilation of the left atrium (LA volume index 42.6; normal: 16-34). He reports cotinuing episodes of atrial fibrillation despite his propafenone and metoprolol. He now follows with Dr. Mcdonald and they discussed moving forward with a change in rhythm control therapies at his last appointment. Now admitted for elective dofetilide drug load. -CHADSVASC = 1 (EF 47%), holding off anticoagulation after discussion with patient of risks/benefits -Home propafernone discontinued (last dose on 09/12) -First dose of dofetilide was not given until 2:41AM-will work on gradually adjusting doses back to a 9AM/9PM schedule -Continue dofetilide 250 mcg BID (doses 4&5 today) -EKGs 2 hours after each dose to monitor QTc interval -Continue home metoprolol tartrate 50 mg BID -Continuous uninterrupted telemetry monitoring -Keep K > 4.0 & Mg > 2.0, replete as indicated Assessment & Plan (09/17/2021 10:36 AM CDT): History of atrial fibrillation for the last 5 years or so. Patient reports worsened tachypalpitations after receiving his second COVID-19 vaccination in March of 2021. Ambulatory monitoring revealed paroxysms of atrial fibrillation/flutter . He was prescribed propafenone and metoprolol. Echo in 2017 was normal except for mild to moderate dilation of the left atrium (LA volume index 42.6; normal: 16-34). He reports cotinuing episodes of atrial fibrillation despite his propafenone and metoprolol. He now follows with Dr. Mcdonald and they discussed moving forward with a change in rhythm control therapies at his last appointment. Now admitted for elective dofetilide drug load. -Home propafernone discontinued (last dose on 09/12) -First dose of dofetilide was not given until 2:41AM-will work on gradually adjusting doses back to a 9AM/9PM schedule -Continue dofetilide 250 mcg BID -EKGs 2 hours after each dose to monitor QTc interval -Continue home metoprolol tartrate 50 mg BID -Continuous uninterrupted telemetry monitoring -Keep K > 4.0 & Mg > 2.0, replete as indicated Assessment & Plan (09/16/2021 6:19 PM CDT): History of atrial fibrillation for the last 5 years or so. Previously followed by Dr. Loyola. He was previously prescribed propafenone, but took it rarely or sporadically, because it didn't seem like he really needed it. After his second COVID-19 vaccine, in Mar 2021, he found that he frequently had tachypalpitations and on one occasion even went to the hospital. He was having frequent episodes daily but always paroxysmally. On one other occasion, he reports his heart rate was 187, but was told it was not AF . Ambulatory monitoring revealed paroxysms of atrial fibrillation/flutter . He was prescribed propafenone and metoprolol. Echo in 2017 was normal except for mild to moderate dilation of the left atrium (LA volume index 42.6; normal: 16-34). He reports cotinuing episodes of atrial fibrillation despite his propafenone and metoprolol. He now follows with Dr. Mcdonald and they discussed moving forward with a change in rhythm control therapies at his last appointment and is now admitted for elective Tikosyn drug load. -Home propafernone discontinued (last dose on 09/12) -Obtain baseline labwork and EKG -If labs/EKG stable will plan to start Tikosyn 250 mcg BID with EKGs 2 hours after each dose to monitor QTc interval -Continue home metoprolol tartrate 50 mg BID -Continuous uninterrupted telemetry monitoring Encounters Date Type Department Care Team Description 09/03/2024 Telephone [facility] [address] [facility] [address] [place] [address] [place] [address] Garfield Mcdonald MD PhD 07/07/2024 Telephone [facility] [address] [facility] 8th [place] [address] [place] [address] Mony Ross NP from Last 3 Months Immunizations Immunization Administration Dates Next Due Influenza, Unspecified 03/25/2021 Surgical History Surgery Date Site/Laterality Comments CARPAL TUNNEL RELEASE THUMB SURGERY Medical History Medical History Date Comments Atrial fibrillation (HCC) Asthma Sleep apnea Family History Medical History Relation Name Comments Cancer Mother Family history of cancer - (Added by TW Conv) Lung disease Mother Family history of lung disease - (Added by TW Conv) Anesthesia problems Neg Hx Relation Name Status Comments Mother Social History Tobacco Use Types Packs/Day Years Used Date Smoking Tobacco: Former Cigarettes 0.5 20 0 07/26/1992 - 07/26/2012 Smokeless Tobacco: Never Tobacco Cessation:Counseling Given: Not Answered AUDIT-C Answer Date Recorded Q1: How often 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 SAMPLE HAND Gender Identity Not on file Sexual Orientation Not on file Obstetrics History Last Filed Vital Signs Vital Sign Reading Time Taken Comments Blood Pressure 133/80 01/11/2024 9:07 AM CDT Pulse 49 01/11/2024 9:07 AM CDT Temperature 36.5 C (97.7 F) 06/21/2022 4:25 AM SAMPLE HAND Respiratory Rate 15 06/21/2022 4:25 AM SAMPLE HAND Oxygen Saturation 99% 01/11/2024 9:07 AM CDT Inhaled Oxygen Concentration - - Weight 70.2 kg (154 lb 12.8 oz) 01/11/2024 9:07 AM CDT Height 167.6 cm (5' 6 ) 01/11/2024 9:07 AM CDT Body Mass Index 24.99 01/11/2024 9:07 AM CDT Plan of Treatment Health Maintenance Due Date Last Done Comments Colon Cancer Screening-Colonoscopy 1965 Depression Screening 1963 Hepatitis C Screening 1963 Prostate Cancer Screening-PSA 1963 Hepatitis B Screening 1981 Regular Well Visit/Exam 18-64 1981 Pneumococcal vaccine <65 (2 of 2 - PPSV23) 07/12/2018 05/17/2018 Zoster Vaccine (2 of 2) 11/18/2019 09/23/2019 DTaP/Tdap/Td Vaccine (2 - Td or Tdap) 04/02/2021 04/02/2011 Influenza Vaccine (#1) 2024 , 06/13/2019, 02/14/2017, Additional history exists Medical Devices Implanted Type Area Darklight Inspector Device Identifier Shelf Expiration Date Model / Serial / Lot [employer] Vascade Mvp 6-12fr Venous Closure [id number] - [id number] - [id number] Implanted:Qty : 1 on 2022 by Garfield Mcdonald MD PhD at [facility] Collagen Right: Groin [employer] 02/24/2024 800-612C-1 0U / [id number] / [id number] [employer] Vascade Mvp 6-12fr Venous Closure [id number] - [id number] - [id number] Implanted:Qty : 1 on 2022 by Garfield Mcdonald MD PhD at [facility] Collagen Left: Groin [employer] 02/24/2024 800-612C-1 0U / [id number] / [id number] [employer] Device Closure Vascade Od5 Fr Femoral Artery [id number] - [id number] - [id number] Implanted:Qty : 1 on 2022 by Garfield Mcdonald MD PhD at [facility] Collagen Left: Groin [employer] 04/03/2024 700-500DX- 05U / [id number] / [id number] [id number] [employer] Vascade Mvp 6-12fr Venous Closure [id number] - [id number] - [id number] Implanted:Qty : 1 on 2022 by Garfield Mcdonald MD PhD at [facility] Collagen Left: Patricia [employer] 02/16/2024 800-612C-1 0U / [id number] / [id number] Insurance [employer] [place] [employer] [place] [employer] [place] [employer] [place] Advance Directives For more information, please contact: [phone] * Full Code (Latest Code Status on File) Date Activated Date Inactivated Comments 09/16/2021 5:25 PM 09/19/2021 7:31 PM Care Teams Scheduling Specialist Relationship Specialty Start Date End Date All Guerra MD [address] [place] [address] PCP - General 01/10/17
--- OUTSIDE RECORDS SUMMARY | 2024-09-03 17:45 | XMS_ITS | Referral Summary ---
Author Organization [facility] Address [address] [place] [address] Care Team Providers Care Cloth Checker Name Role Phone All Guerra MD Primary Care Provider [phone] Encounters Date Type Department Care Team Description 09/03/2024 Telephone [facility] [address] [facility] 8th [place] [address] [place] [id number] Garfield Mcdonald MD PhD 07/07/2024 Telephone [facility] [address] [facility] 8th [place] [address] [place] [address] Mony Ross NP from Last 3 Months Allergies No known active allergies Medications busPIRone [...] 09/16/2021 Assessment & Plan (06/21/2022 8:22 AM GRINDING ROOM INSPECTOR): -Continue statin Assessment & Plan (09/18/2021 10:28 [...] will obtain event monitor Stop Eliquis - [id number] score 0 Continue metoprolol 50 mg BID Follow up in 6 months, sooner as needed Assessment & Plan (10/31/2022 10:08 AM CDT): Paroxysmal atrial fibrillation s/p PVI ablation 2022 He had limited early AF recurrence, no AF in the past several months Stop dofetilide Continue metoprolol 50 mg BID No longer on oral anticoagulation - [id number] score 0 He has samples of Eliquis to take if he has a prolonged episode of AF Encouraged him to limit alcohol intake Continue regular exercise Follow up in 6 months, sooner as needed Assessment & Plan (07/20/2022 4:10 PM GRINDING ROOM INSPECTOR): Paroxysmal atrial fibrillation s/p PVI ablation 2022 [...] needed Assessment & Plan (06/21/2022 8:22 AM GRINDING ROOM INSPECTOR): S/p AFib ablation on 06/20. Feels well. [...] was prescribed propafenone and metoprolol. Echo in 2016 was normal except for mild to moderate [...] 50 mg BID -Continuous uninterrupted telemetry monitoring Immunizations Immunization Administration Dates Next Due Influenza, Unspecified 03/25/2021 Social History Tobacco Use Types Packs/Day Years 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 GRINDING ROOM INSPECTOR Gender Identity Not on file Sexual Orientation Not on file Last Filed Vital Signs Vital Sign Reading Time Taken Comments Blood Pressure 133/80 01/11/2024 9:07 AM CDT Pulse 49 01/11/2024 9:07 AM CDT Temperature 36.5 C (97.7 F) 06/21/2022 4:25 AM GRINDING ROOM INSPECTOR Respiratory Rate 15 06/21/2022 4:25 AM GRINDING ROOM INSPECTOR Oxygen Saturation 99% 01/11/2024 9:07 AM CDT Inhaled Oxygen Concentration - - Weight 70.2 kg (154 lb 12.8 oz) 01/11/2024 9:07 AM CDT Height 167.6 cm (5' 6 ) 01/11/2024 9:07 AM CDT Body Mass Index 24.99 01/11/2024 9:07 AM CDT Plan of Treatment Not on file Medical Devices Implanted Type Area Computer Repairer Device Identifier Shelf Expiration Date Model / Serial / Lot [employer] Vascade Mvp 6-12fr Venous Closure [id number] - [id number] - [id number] Implanted:Qty : 1 on 2022 by Garfield Mcdonald MD PhD at [facility] Collagen Right: Groin [employer] 02/24/2024 800-612C-1 0U / [id number] / [id number] [employer] Vascade Mvp 6-12fr Venous Closure [id number] - [id number] - [id number] Implanted:Qty : 1 on 2022 by Garfield Mcdonald MD PhD at [facility] Collagen Left: Groin [employer] 02/24/2024 800-612C-1 0U / [id number] / [id number] [employer] Device Closure Vascade Od5 Fr Femoral Artery [id number] - [id number] - [id number] Implanted:Qty : 1 on 2022 by Garfield Mcdonald MD PhD at [facility] Collagen Left: Groin [employer] 04/03/2024 700-500DX- 05U / [id number] / [id number] [employer] Vascade Mvp 6-12fr Venous Closure [id number] - [id number] - [id number] Implanted:Qty : 1 on 2022 by Garfield Mcdonald MD PhD at [facility] Collagen Left: Groin [employer] 02/16/2024 800-612C-1 0U / [id number] / [id number] [id number] Insurance [facility] [place] Direct[place] For more information, please contact: [phone] * Full Code (Latest Code Status on File) Date Activated Date Inactivated Comments 09/16/2021 5:25 PM 09/19/2021 7:31 PM Care Teams Cloth Checker Relationship Specialty Start Date End Date All Guerra MD [address] [place] [address] PCP - General 01/10/17
== END 2024-09-03 16:09 | disposition home or self-care (01) ==
PROVIDERS: PCP Internal Medicine; Visit Provider Internal Medicine
DX: E86.0 Dehydration (principal); N39.0 Urinary tract infection, site not specified; N41.9 Inflammatory disease of prostate, unspecified
CPT/HCPCS: 36415; 80048; 84153

== ENCOUNTER 2024-09-04 15:01 | Outpatient (CLI) | payer BC, SELFPAY ==
[2024-09-04 15:59] LABS: Anion Gap 11 mmol/L (4-12); Blood Urea Nitrogen 20 mg/dL (7-18); Calcium 8.7 mg/dL (8.5-10.1); Carbon Dioxide 26 mmol/L (21-32); Chloride 95 mmol/L (98-108); Estimated Glomerular Filt Rate > 60; Glucose 101 mg/dL (70-99); Osmolality Calculated 276 mOsm/kg (285-295); Potassium 4.6 mmol/L (3.5-5.1); Sodium 132 mmol/L (136-145)
--- OUTSIDE RECORDS SUMMARY | 2024-09-04 16:50 | XMS_ITS | Referral Summary ---
Author Organization [facility] al Address [address] [place] [address] Care Team Providers Care Senior Label Specialist Name Role Phone All Guerra MD Primary Care Provider Encounters Date Type Department Care Team Description 09/03/2024 Telephone [facility] Cardiology [address] [facility] Advanced Medicine 8th [place] [address] [place] [phone] Garfield Mcdonald MD PhD 07/07/2024 Telephone [facility] Cardiology [address] [facility] Advanced Medicine 8th [place] [address] [place] [address] Mony Ross NP from Last [...] 09/16/2021 Assessment & Plan (06/21/2022 8:22 AM HIV COUNSELOR): -Continue statin Assessment & Plan (09/18/2021 10:28 [...] will obtain event monitor Stop Eliquis - [id number] score 0 Continue metoprolol 50 mg BID Follow up in 6 months, sooner as needed Assessment & Plan (10/31/2022 10:08 AM CDT): Paroxysmal atrial fibrillation s/p PVI ablation 2022 He had limited early AF recurrence, no AF in the past several months Stop dofetilide Continue metoprolol 50 mg BID No longer on oral anticoagulation - [id number] score 0 He has samples of Eliquis to take if he has a prolonged episode of AF Encouraged him to limit alcohol intake Continue regular exercise Follow up in 6 months, sooner as needed Assessment & Plan (07/20/2022 4:10 PM HIV COUNSELOR): Paroxysmal atrial fibrillation s/p PVI ablation 2022 [...] needed Assessment & Plan (06/21/2022 8:22 AM HIV COUNSELOR): S/p AFib ablation on 06/20. Feels well. 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 HIV COUNSELOR Gender Identity Not on file Sexual Orientation Not on file Last Filed Vital Signs Vital Sign Reading Time Taken Comments Blood Pressure 133/80 01/11/2024 9:07 AM CDT Pulse 49 01/11/2024 9:07 AM CDT Temperature 36.5 C (97.7 F) 06/21/2022 4:25 AM HIV COUNSELOR Respiratory Rate 15 06/21/2022 4:25 AM HIV COUNSELOR Oxygen Saturation 99% 01/11/2024 9:07 AM CDT Inhaled Oxygen Concentration - - Weight 70.2 kg (154 lb 12.8 oz) 01/11/2024 9:07 AM CDT Height 167.6 cm (5' 6 ) 01/11/2024 9:07 AM CDT Body Mass Index 24.99 01/11/2024 9:07 AM CDT Plan of Treatment Not on file Medical Devices Implanted Type Area Gasoline Locomotive Crane Operator Device Identifier Shelf Expiration Date Model / Serial / Lot [employer] Vascade Mvp 6-12fr Venous Closure [id number] - [id number] - [id number] Implanted:Qty : 1 on 2022 by Garfield Mcdonald MD PhD at [facility] Collagen Right: Groin [employer] 02/24/2024 800-612C-1 0U / [id number] / [id number] [employer] Vascade Mvp 6-12fr Venous Closure [id number] - [id number] - [id number] Implanted:Qty : 1 on 2022 by Garfield Mcdonald MD PhD at [facility] Collagen Left: Groin [employer] 02/24/2024 800-612C-1 0U / [id number] / [id number] [employer] Device Closure Vascade Od5 Fr Femoral Artery [id number] - [id number] - [id number] Implanted:Qty : 1 on 2022 by Garfield Mcdonald MD PhD at [facility] Collagen Left: Groin [employer] 04/03/2024 700-500DX- 05U / [id number] / [id number] [id number] [employer] Vascade Mvp 6-12fr Venous Closure [id number] - [id number] - [id number] Implanted:Qty : 1 on 2022 by Garfield Mcdonald MD PhD at [facility] Collagen Left: Groin [employer] 02/16/2024 800-612C-1 0U / [id number] / [id number] [id number] Insurance [facility] BLUE ACCESS CHOICE [place] BLUE ACCESS CHOICE [place] BLUE ACCESS CHOICE [place] Advance Directives For more information, please contact: [phone] * Full Code (Latest Code Status on File) Date Activated Date Inactivated Comments 09/16/2021 5:25 PM 09/19/2021 7:31 PM Care Teams Senior Label Specialist Relationship Specialty Start Date End Date All Guerra MD [address] [place] [address] PCP - General 01/10/17
--- OUTSIDE RECORDS SUMMARY | 2024-09-04 16:50 | XMS_ITS | Encounter Summary ---
Author Organization [facility] Address [address] [place] [address] Phone Care Team Providers Care Examiner Rating Clerk Name Role Phone All Guerra MD Primary Care Provider Encounter Details Date Type Department Care Team (Late st Contact Info) Description 04/25/[address] [facility] Cardiology [address] [facility] Advanced Medicine 8th [place] [address] [place] [address] Mony Loyola MD [address] [facility] [address] [place] [address] Social History Tobacco Use Types Packs/Day Years Used Date Smoking Tobacco: Former Sex and Gender Information Value Date Recorded Sex Assigned at Not on file Legal Sex Male 1:55 PM CHILLING HOOD OPERATOR Gender Identity Not on file Sexual Orientation Not on file documented as of this encounter Plan of Treatment Not on file documented as of this encounter Visit Diagnoses Not on filedocumented in this encounter Care Teams Examiner Rating Clerk Relationship Specialty Start Date End Date All Guerra MD [address] [place], [place] [id number] PCP - General 01/10/17 documented as of this encounter
--- OUTSIDE RECORDS SUMMARY | 2024-09-04 16:50 | XMS_ITS | Clinical Summary ---
Author Organization [facility] Care Team Providers Care Table Lever Operator Name Role Phone Unavailable Primary Care Provider [...]
--- OUTSIDE RECORDS SUMMARY | 2024-09-04 16:50 | XMS_ITS | Encounter Summary ---
Author Organization [facility] Address [address] [place] [address] Phone Care Team Providers Care Microwave Oven Assembler Name Role Phone All Guerra MD Primary Care Provider [phone] Encounter Details Date Type Department Care Team (Late st Contact Info) Description 09/03/2024 Telephone [facility] Cardiology [address] [facility] Advanced Medicine 8th [place] [address] [place] [phone] Garfield Mcdonald MD PhD [address] [facility] [address] [place], [place] [phone] Social History Tobacco Use Types Packs/Day Years 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 * Telephone Encounter - Marisol Zamudio - 09/03/2024 8:50 AM CDT Harry TRAORE Scheduling Pt would like a call back to [facility] appt. documented in this encounter Plan of Treatment Not on file documented as of this encounter Visit Diagnoses Not on filedocumented in this encounter Care Teams Microwave Oven Assembler Relationship Specialty Start Date End Date All Guerra MD [address] [place] [address] PCP - General 01/10/17 documented as of this encounter
--- OUTSIDE RECORDS SUMMARY | 2024-09-04 16:50 | XMS_ITS | Continuity of Care Document ---
Author Organization [facility] Address [address] [facility] [address] [place] [address] Phone Care Team Providers Care Roll Filler Name Role Phone Oleg MS, OTR/L, Farida JACKSON Unavailable Unavailable Procedures Procedure Date OT RE-EVALUATION THERAPEUTIC EXERCISES FUNC ACTIVITY HOT/COLD PACK THERAPEUTIC EXERCISES FUNC ACTIVITY OT EVALUATION THERAPEUTIC EXERCISES Advance Directives Directive Yes / No Effective Date File Name No Information Encounters Encounter Description Practice Location Reason(s) For Visit Diagnoses Date Provider Providers Copied on Encounter [facility] [address] [place] [address], [id number], tel:[phone] [place] No Information 4 Oleg Iqbal. [address] [facility], [facility] [address], [facility], . tel:[phone], [id number], tel:[phone] [place] No Information 4 Oleg Iqbal. [address] [facility], [facility] [address], [facility], . tel:[phone] Referring Provider: Blas Loyola, [address] [facility] [address], [place], [address]. tel:[phone] [facility] [address], [id number], tel:[phone] [place] No Information 4 Oleg Iqbal. [address] [facility], [address], [place], [place], [facility], . tel:[phone] Referring Provider: Blas Loyola, [address] [facility] [address], [place], [address]. tel:[phone] [facility] [address], [id number], tel:[phone] [place] Pain in joint involving hand 4 Oleg Iqbal. [address] [facility], [address], [place], [address], . tel:[phone] Referring Provider: Blas Loyola, [address] [facility] [address], [place], [address]. tel:[phone] Family History Family Member Type Diagnosis Age At Onset No Information Payers Payer name Insurance type Covered republican ID Allyson dunneric(s) [place] [id number] Social History Type Description Quantity Date Captured [...]
--- OUTSIDE RECORDS SUMMARY | 2024-09-04 16:50 | XMS_ITS | Encounter Summary ---
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
--- OUTSIDE RECORDS SUMMARY | 2024-09-04 16:50 | XMS_ITS | Encounter Summary ---
Author Organization [facility] Address [address] [place] [address] Phone Care Team Providers Care Machine Feeder Name Role Phone All Guerra MD Primary Care Provider Encounter Details Date Type Department Care Team (Late st Contact Info) Description 04/16/2018 Telephone [facility] Cardiology [address] [facility] Advanced Medicine 8th [place] [address] [place] [address] Ashley Car, MPH Social History Tobacco Use Types Packs/Day Years Used Date Smoking Tobacco: Former Sex and Gender Information Value Date Recorded Sex Assigned at Not on file Legal 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
--- OUTSIDE RECORDS SUMMARY | 2024-09-04 16:50 | XMS_ITS | Clinical Summary ---
Author Organization [facility] Address [address] [place] [address] Care Team Providers Care Manager Endoscopy Name Role Phone Unavailable Primary Care Provider [...]
--- OUTSIDE RECORDS SUMMARY | 2024-09-04 16:50 | XMS_ITS | Clinical Summary ---
Author Organization [facility] al Address [address] [place] [address] Care Team Providers Care Surgical Services Director Name Role Phone All Guerra MD Primary [...] 09/16/2021 Assessment & Plan (06/21/2022 8:22 AM PROFESSOR OF PHYSICS): -Continue statin Assessment & Plan (09/18/2021 10:28 [...] will obtain event monitor Stop Eliquis - AGUAT4PXLb score 0 Continue metoprolol 50 mg BID Follow up in 6 months, sooner as needed Assessment & Plan (10/31/2022 10:08 AM CDT): Paroxysmal atrial fibrillation s/p PVI ablation 2022 He had limited early AF recurrence, no AF in the past several months Stop dofetilide Continue metoprolol 50 mg BID No longer on oral anticoagulation - UKQBX1KTBv score 0 He has samples of Eliquis to take if he has a prolonged episode of AF Encouraged him to limit alcohol intake Continue regular exercise Follow up in 6 months, sooner as needed Assessment & Plan (07/20/2022 4:10 PM PROFESSOR OF PHYSICS): Paroxysmal atrial fibrillation s/p PVI ablation 2022 [...] needed Assessment & Plan (06/21/2022 8:22 AM PROFESSOR OF PHYSICS): S/p AFib ablation on 06/20. Feels well. [...] Type Department Care Team Description 09/03/2024 Telephone [facility] Cardiology [address] [facility] 8th [place] [address] [place] [address] Garfield Mcdonald MD PhD 07/07/2024 Telephone [facility] Cardiology [address] [facility] 8th [place] [address] [place] [address] Moyn Ross NP from Last 3 Months Immunizations 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 PROFESSOR OF PHYSICS Gender Identity Not on file Sexual Orientation Not on file Obstetrics History Last Filed Vital Signs Vital Sign Reading Time Taken Comments Blood Pressure 133/80 01/11/2024 9:07 AM CDT Pulse 49 01/11/2024 9:07 AM CDT Temperature 36.5 C (97.7 F) 06/21/2022 4:25 AM PROFESSOR OF PHYSICS Respiratory Rate 15 06/21/2022 4:25 AM PROFESSOR OF PHYSICS Oxygen Saturation 99% 01/11/2024 9:07 AM CDT [...] history exists Medical Devices Implanted Type Area Steward/Stewardess Bath Device Identifier Shelf Expiration Date Model / Serial / Lot [employer] Vascade Mvp 6-12fr Venous Closure [id number] - [id number] - [id number] Implanted:Qty : 1 on 2022 by Garfield Mcdonald MD PhD at [facility] Collagen Right: Groin [employer] 02/24/2024 800-612C-1 0U / [id number] 4A / [id number] [id number] [employer] Vascade Mvp 6-12fr Venous Closure [id number] - [id number] - [id number] Implanted:Qty : 1 on 2022 by Garfield Mcdonald MD PhD at [facility] Collagen Left: Groin [employer] 02/24/2024 800-612C-1 0U / [id number] 4A / [id number] [id number] [employer] Device Closure Vascade Od5 Fr Femoral Artery [id number] - [id number] - [id number] Implanted:Qty : 1 on 2022 by Garfield Mcdonald MD PhD at [facility] Collagen Left: Groin [employer] 04/03/2024 700-500DX- 05U / [id number] 17A / [id number] 17A [employer] Vascade Mvp 6-12fr Venous Closure [id number] - [id number] - [id number] Implanted:Qty : 1 on 2022 by Garfield Mcdonald MD PhD at [facility] Collagen Left: Patricia [employer] 02/16/2024 800-612C-1 0U / [id number] 1A / [id number] 1A Insurance [employer] [place] [employer] [place] [employer] [place] CHOICE [place] Advance Directives For more information, please contact: [phone] * Full Code (Latest Code Status on File) Date Activated Date Inactivated Comments 09/16/2021 5:25 PM 09/19/2021 7:31 PM Care Teams Surgical Services Director Relationship Specialty Start Date End Date All Guerra MD [address] [place] [address] PCP - General 01/10/17
== END 2024-09-04 15:02 | disposition home or self-care (01) ==
LOC: CHSLAB 15:03
PROVIDERS: PCP Internal Medicine; Visit Provider Internal Medicine
DX: E87.1 Hypo-osmolality and hyponatremia (principal)
CPT/HCPCS: 36415; 80048

== ENCOUNTER 2024-09-08 10:21 | Outpatient (CLI) | payer BC, SELFPAY ==
--- NOTE | ~2024-09-08 | XR_ITS ---
XR chest 2V 09/08/2024 10:46 Indication: Fever with chills. Procedure: 2 view chest Comparison: 08/03/2023 Findings: Heart size normal. There is basilar atelectasis. No focal pneumonia, significant effusion o r pneumothorax. The lungs are hyperinflated which is consistent with, but not diagnostic of chronic o bstructive pulmonary disease. Impression: 1: Bibasilar atelectasis. No evidence for pneumonia.. Reviewed, dictated and finalized at location B. Impression: 1: Bibasilar atelectasis. No evidence for pneumonia..
[2024-09-08 10:50] LABS: Basophils Absolute Auto 0.05 K/mm3 (0.00-0.10); Basophils Percent Auto 0.5 % (0.0-1.0); Eosinophils Absolute Auto 0.06 K/mm3 (0.02-0.50); Eosinophils Percent Auto 0.5 % (1.0-6.0); Hematocrit 36.9 % (40.0-54.0); Hemoglobin 12.4 g/dL (14.0-18.0); Immature Granulocyte Absolute 0.09 K/mm3 (0.00-0.00); Immature Granulocyte Percent A 0.8 % (0.0-0.0); Lymphocytes Absolute Auto 2.15 K/mm3 (1.10-4.50); Lymphocytes Percent Auto 19.4 % (18.0-42.0); Mean Corpuscular HGB Conc 33.6 g/dL (32-36); Mean Corpuscular Hemoglobin 32.5 pg (27.0-31.0); Mean Corpuscular Volume 96.6 fL (78.0-102.0); Mean Platelet Volume 8.3 fl (8.7-11.0); Monocytes Absolute Auto 1.17 K/mm3 (0.10-0.90); Monocytes Percent Auto 10.6 % (2.0-11.0); Neutrophils Absolute Auto 7.55 K/mm3 (1.70-7.20); Neutrophils Percent Auto 68.2 % (50.0-70.0); Platelet Count Result 415 K/mm3 (150-420); Red Blood Count 3.82 M/mm3 (4.70-6.10); Red Cell Distribution Width 12.7 % (11.6-14.4); White Blood Count 11.1 K/mm3 (4.8-10.8)
[2024-09-08 10:59] LABS: Alanine Aminotransferase 26 U/L (16-63); Alkaline Phosphatase 87 U/L (46-116); Anion Gap 8 mmol/L (4-12); Aspartate Amino Transferase 17 U/L (15-37); Bilirubin,Total 0.2 mg/dL (0.00-1.00); Blood Urea Nitrogen 17 mg/dL (7-18); Calcium 9.4 mg/dL (8.5-10.1); Carbon Dioxide 28 mmol/L (21-32); Chloride 99 mmol/L (98-108); Estimated Glomerular Filt Rate > 60; Glucose 109 mg/dL (70-99); Osmolality Calculated 282 mOsm/kg (285-295); Potassium 4.5 mmol/L (3.5-5.1); Sodium 135 mmol/L (136-145); Total Protein 7.6 g/dL (6.4-8.2)
[2024-09-08 11:11] LABS: Strep Group A RT-PCR NOT DETECTED (Negative)
[2024-09-08 11:23] LABS: Influenza A QL RT-PCR Negative (Negative); Influenza B QL RT-PCR Negative (Negative); RSV RNA, RT-PCR Negative (Negative); SARS-CoV-2 RNA PCR Negative (Negative)
--- OUTSIDE RECORDS SUMMARY | 2024-09-08 12:26 | XMS_ITS | Referral Summary ---
Author Organization [facility] al Address [address] [place] [address] Care Team Providers Care Contracting Manager Name Role Phone All Guerra MD Primary Care Provider [phone] Encounters Date Type Department Care Team Description 09/03/2024 Telephone [facility] Cardiology [address] [facility] Advanced Medicine 8th [place] [address] [place] [address] Garfield Mcdonald MD PhD 07/07/2024 Telephone [facility] Cardiology [address] [facility] Advanced Medicine 8th [place] [address] [place] [address] Mony Ross NP from Last [...] 09/16/2021 Assessment & Plan (06/21/2022 8:22 AM FIELD NATURALIST): -Continue statin Assessment & Plan (09/18/2021 10:28 [...] will obtain event monitor Stop Eliquis - EQHIY3ODKe score 0 Continue metoprolol 50 mg BID Follow up in 6 months, sooner as needed Assessment & Plan (10/31/2022 10:08 AM CDT): Paroxysmal atrial fibrillation s/p PVI ablation 2022 He had limited early AF recurrence, no AF in the past several months Stop dofetilide Continue metoprolol 50 mg BID No longer on oral anticoagulation - TFQTG8AQYn score 0 He has samples of Eliquis to take if he has a prolonged episode of AF Encouraged him to limit alcohol intake Continue regular exercise Follow up in 6 months, sooner as needed Assessment & Plan (07/20/2022 4:10 PM FIELD NATURALIST): Paroxysmal atrial fibrillation s/p PVI ablation 2022 [...] needed Assessment & Plan (06/21/2022 8:22 AM FIELD NATURALIST): S/p AFib ablation on 06/20. Feels well. 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 FIELD NATURALIST Gender Identity Not on file Sexual Orientation Not on file Last Filed Vital Signs Vital Sign Reading Time Taken Comments Blood Pressure 133/80 01/11/2024 9:07 AM CDT Pulse 49 01/11/2024 9:07 AM CDT Temperature 36.5 C (97.7 F) 06/21/2022 4:25 AM FIELD NATURALIST Respiratory Rate 15 06/21/2022 4:25 AM FIELD NATURALIST Oxygen Saturation 99% 01/11/2024 9:07 AM CDT Inhaled Oxygen Concentration - - Weight 70.2 kg (154 lb 12.8 oz) 01/11/2024 9:07 AM CDT Height 167.6 cm (5' 6 ) 01/11/2024 9:07 AM CDT Body Mass Index 24.99 01/11/2024 9:07 AM CDT Plan of Treatment Not on file Medical Devices Implanted Type Area Department Editor Device Identifier Shelf Expiration Date Model / Serial / Lot [employer] Vascade Mvp 6-12fr Venous Closure [id number] - [id number] - [id number] Implanted:Qty : 1 on 2022 by Garfield Mcdonald MD PhD at [facility] Collagen Right: Groin [employer] 02/24/2024 800-612C-1 0U / [id number] 4A / [id number] 4A [employer] Vascade Mvp 6-12fr Venous Closure [id number] - [id number] - [id number] Implanted:Qty : 1 on 2022 by Garfield Mcdonald MD PhD at [facility] Collagen Left: Groin [employer] 02/24/2024 800-612C-1 0U / [id number] 4A / [id number] 4A [employer] Device Closure Vascade Od5 Fr Femoral Artery [id number] - [id number] - [id number] Implanted:Qty : 1 on 2022 by Garfield Mcdonald MD PhD at [facility] Collagen Left: Groin [employer] 04/03/2024 700-500DX- 05U / [id number] 17A / [id number] 17A [employer] Vascade Mvp 6-12fr Venous Closure [id number] - [id number] - [id number] Implanted:Qty : 1 on 2022 by Garfield Mcdonald MD PhD at [facility] Collagen Left: Groin [employer] 02/16/2024 800-612C-1 0U / [id number] 1A / [id number] 1A Insurance [facility] BLUE [place]ESS [place] Advance Directives For more information, please contact: [phone] * Full Code (Latest Code Status on File) Date Activated Date Inactivated Comments 09/16/2021 5:25 PM 09/19/2021 7:31 PM Care Teams Contracting Manager Relationship Specialty Start Date End Date All Guerra MD [address] [place] [address] PCP - General 01/10/17
--- OUTSIDE RECORDS SUMMARY | 2024-09-08 12:27 | XMS_ITS | Clinical Summary ---
Author Organization [facility] Care Team Providers Care Photostat Operator Name Role Phone Unavailable Primary Care [...]
--- OUTSIDE RECORDS SUMMARY | 2024-09-08 12:27 | XMS_ITS | Encounter Summary ---
Author Organization [facility] Address [address] [place] [address] Phone Care Team Providers Care Lead Python Developer Name Role Phone All Guerra MD Primary Care Provider Encounter Details Date Type Department Care Team (Late st Contact Info) Description 04/25/2018 Telephone [facility] Cardiology [address] [facility] Advanced Medicine 8th [place] [address] [place] [address] Mony Loyola MD [address] [facility] [address] [place] [address] Social History Tobacco Use Types Packs/Day Years Used Date Smoking Tobacco: Former Sex and Gender Information Value Date Recorded Sex Assigned at Not on file 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
--- OUTSIDE RECORDS SUMMARY | 2024-09-08 12:27 | XMS_ITS | Encounter Summary ---
Author Organization [facility] Address [address] [place] [address] Phone Care Team Providers Care Qualitative Executive Researcher Name Role Phone All Guerra MD Primary Care Provider Encounter Details Date Type Department Care Team (Late st Contact Info) Description 09/03/2024 Telephone [facility] Cardiology [address] [facility] Advanced Medicine 8th [place] [address] [place] [address] Garfield Mcdonald MD PhD [address] [facility] [address] [place], [place] [phone] Social History Tobacco Use Types Packs/Day Years 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 * Telephone Encounter - Marisol Zamudio - 09/03/2024 8:50 AM CDT Harry TRAORE Scheduling Pt would like a call back to [facility] appt. documented in this encounter Plan of Treatment Not on file documented as of this encounter Visit Diagnoses Not on filedocumented in this encounter Care Teams Qualitative Executive Researcher Relationship Specialty Start Date End Date All Guerra MD [address] [place] [address] PCP - General 01/10/17 documented as of this encounter
--- OUTSIDE RECORDS SUMMARY | 2024-09-08 12:27 | XMS_ITS | Encounter Summary ---
Author Organization [facility] Address [address] [place] [address] Phone Care Team Providers Care Coal Conveyor Operator Name Role Phone All Guerra MD Primary Care Provider [phone] Encounter Details Date Type Department Care Team (Late st Contact Info) Description 04/16/2018 Telephone [facility] Cardiology [address] [facility] Advanced Medicine 8th [place] [address] [place] [address] Ashley Car, MPH Social History Tobacco Use Types Packs/Day Years Used Date Smoking Tobacco: Former Sex and Gender Information Value Date Recorded Sex Assigned at Not on file 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
--- OUTSIDE RECORDS SUMMARY | 2024-09-08 12:27 | XMS_ITS | Encounter Summary ---
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
--- OUTSIDE RECORDS SUMMARY | 2024-09-08 12:27 | XMS_ITS | Clinical Summary ---
Author Organization [facility] Address [address] [place] [address] Care Team Providers Care Air Drier Name Role Phone Unavailable Primary Care Provider [...]
--- OUTSIDE RECORDS SUMMARY | 2024-09-08 12:27 | XMS_ITS | Clinical Summary ---
Author Organization [facility] Address [address] [place] [address] Care Team Providers Care Senior Oracle Pl Sql Developer Name Role Phone All Guerra MD [...] 09/16/2021 Assessment & Plan (06/21/2022 8:22 AM SOURCING ANALYST): -Continue statin Assessment & Plan (09/18/2021 10:28 [...] will obtain event monitor Stop Eliquis - [id number] score 0 Continue metoprolol 50 mg BID Follow up in 6 months, sooner as needed Assessment & Plan (10/31/2022 10:08 AM CDT): Paroxysmal atrial fibrillation s/p PVI ablation 2022 He had limited early AF recurrence, no AF in the past several months Stop dofetilide Continue metoprolol 50 mg BID No longer on oral anticoagulation - [id number] score 0 He has samples of Eliquis to take if he has a prolonged episode of AF Encouraged him to limit alcohol intake Continue regular exercise Follow up in 6 months, sooner as needed Assessment & Plan (07/20/2022 4:10 PM SOURCING ANALYST): Paroxysmal atrial fibrillation s/p PVI ablation 2022 [...] needed Assessment & Plan (06/21/2022 8:22 AM SOURCING ANALYST): S/p AFib ablation on 06/20. Feels well. [...] Description 09/03/2024 Telephone [facility] Cardiology [address] [facility] 8th [place] [address] [place] [address] Garfield Mcdonald MD PhD 07/07/2024 Telephone [facility] [address] [facility] 8th [place] [address] [place] [address] Mony Ross NP from Last 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 SOURCING ANALYST Gender Identity Not on file Sexual Orientation Not on file Obstetrics History Last Filed Vital Signs Vital Sign Reading Time Taken Comments Blood Pressure 133/80 01/11/2024 9:07 AM CDT Pulse 49 01/11/2024 9:07 AM CDT Temperature 36.5 C (97.7 F) 06/21/2022 4:25 AM SOURCING ANALYST Respiratory Rate 15 06/21/2022 4:25 AM SOURCING ANALYST Oxygen Saturation 99% 01/11/2024 9:07 AM CDT [...] history exists Medical Devices Implanted Type Area Civil Design Technician Device Identifier Shelf Expiration Date Model / Serial / Lot [employer] Vascade Mvp 6-12fr Venous Closure [id number] - [id number] - [id number] Implanted:Qty : 1 on 2022 by Garfield Mcdonald MD PhD at [facility] Collagen Right: Groin [employer] 02/24/2024 800-612C-1 0U / [id number] [id number] / [id number] [id number] [employer] Vascade Mvp 6-12fr Venous Closure [id number] - [id number] - [id number] Implanted:Qty : 1 on 2022 by Garfield Mcdonald MD PhD at [facility] Collagen Left: Groin [employer] 02/24/2024 800-612C-1 0U / [id number] [id number] / [id number] [id number] [employer] Device Closure Vascade Od5 Fr Femoral Artery [id number] - [id number] - [id number] Implanted:Qty : 1 on 2022 by Garfield Mcdonald MD PhD at [facility] Collagen Left: Groin [employer] 04/03/2024 700-500DX- 05U / [id number] 17A / [id number] 17A [employer] Inc Vascade Mvp 6-12fr Venous Closure [id number] - [id number] - [id number] Implanted:Qty : 1 on 2022 by Garfield Mcdonald MD PhD at [facility] Collagen Left: Patricia [employer] 02/16/2024 800-612C-1 0U / [id number] / [id number] 1A Insurance [employer] [place] [employer] [place] For more information, please contact: [phone] * Full Code (Latest Code Status on File) Date Activated Date Inactivated Comments 09/16/2021 5:25 PM 09/19/2021 7:31 PM Care Teams Senior Oracle Pl Sql Developer Relationship Specialty Start Date End Date All Guerra MD [address] [place] [address] PCP - General 01/10/17
== END 2024-09-08 10:22 | disposition home or self-care (01) ==
LOC: CHSLAB 10:23
PROVIDERS: PCP Internal Medicine; Visit Provider Internal Medicine
DX: R50.9 Fever, unspecified (principal); J98.11 Atelectasis
CPT/HCPCS: 36415; 71046; 80053; 85025; 87040; 87637; 87651

== ENCOUNTER 2024-09-15 07:56 | Outpatient (CLI) | payer BC, SELFPAY ==
--- NOTE | ~2024-09-15 | XR_ITS ---
EXAMINATION: XR chest 2V DATE: 09/15/2024 08:21 INDICATION: Upper respiratory infection. Cough. TECHNIQUE: Frontal and lateral views of the chest were obtained. COMPARISON: Chest 2 views 09/08/2024 FINDINGS: There is no pneumonia, pleural effusion, or pneumothorax. The heart size is normal. IMPRESSION: 1. No acute cardiopulmonary disease. Reviewed, dictated and finalized at location A.
--- OUTSIDE RECORDS SUMMARY | 2024-09-15 08:04 | XMS_ITS | Clinical Summary ---
Author Organization [facility] Address [address] [place] [address] Care Team Providers Care Pet Care Technician Name Role Phone Unavailable Primary Care Provider [...]
--- OUTSIDE RECORDS SUMMARY | 2024-09-15 08:04 | XMS_ITS | Encounter Summary ---
Author Organization [facility] Address [address] [place] [address] Phone Care Team Providers Care Mender Hand Name Role Phone All Guerra MD Primary Care Provider Encounter Details Date Type Department Care Team (Late st Contact Info) Description 04/25/[address] 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
--- OUTSIDE RECORDS SUMMARY | 2024-09-15 08:04 | XMS_ITS | Encounter Summary ---
Author Organization [facility] Address [address] [place] [address] Phone Care Team Providers Care Patroller Name Role Phone All Guerra MD Primary Care Provider [phone] Encounter Details Date Type Department Care Team (Latest Contact Info) Description 05/26/2021 Orders Only [facility] Scanning, Provider Social History Tobacco Use Types Packs/Day Years Used Date Smoking Tobacco: Former Sex and Gender Information Value Date Recorded Sex Assigned at Not on file Legal Sex Male 1:55 PM TRIM INSTALLER Gender Identity Not on file Sexual Orientation [...] on filedocumented in this encounter Care Teams Patroller Relationship Specialty Start Date End Date All Guerra MD [address] [place] [address] PCP - General 01/10/17 documented as of this encounter
--- OUTSIDE RECORDS SUMMARY | 2024-09-15 08:04 | XMS_ITS | Clinical Summary ---
Author Organization [facility] al Address [address] [place] [address] Care Team Providers Care Veterinary X Ray Operator Name Role Phone All Guerra MD [...] 09/16/2021 Assessment & Plan (06/21/2022 8:22 AM BUCKLE ATTACHING MACHINE OPERATOR): -Continue statin Assessment & Plan (09/18/2021 10:28 [...] will obtain event monitor Stop Eliquis - [id number] score 0 Continue metoprolol 50 mg BID Follow up in 6 months, sooner as needed Assessment & Plan (10/31/2022 10:08 AM CDT): Paroxysmal atrial fibrillation s/p PVI ablation 2022 He had limited early AF recurrence, no AF in the past several months Stop dofetilide Continue metoprolol 50 mg BID No longer on oral anticoagulation - BXALP0IBAu score 0 He has samples of Eliquis to take if he has a prolonged episode of AF Encouraged him to limit alcohol intake Continue regular exercise Follow up in 6 months, sooner as needed Assessment & Plan (07/20/2022 4:10 PM BUCKLE ATTACHING MACHINE OPERATOR): Paroxysmal atrial fibrillation s/p PVI ablation 2022 [...] needed Assessment & Plan (06/21/2022 8:22 AM BUCKLE ATTACHING MACHINE OPERATOR): S/p AFib ablation on 06/20. Feels well. [...] Type Department Care Team Description 09/03/2024 Telephone [facility] Cardiology [address] [facility] 8th [place] [address] [place] [address] Garfield Mcdonald MD PhD 07/07/2024 Telephone [facility] Cardiology [address] [facility] 8th [place] [address] [place] [address] Mony Ross NP from Last 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 BUCKLE ATTACHING MACHINE OPERATOR Gender Identity Not on file Sexual Orientation Not on file Obstetrics History Last Filed Vital Signs Vital Sign Reading Time Taken Comments Blood Pressure 133/80 01/11/2024 9:07 AM CDT Pulse 49 01/11/2024 9:07 AM CDT Temperature 36.5 C (97.7 F) 06/21/2022 4:25 AM BUCKLE ATTACHING MACHINE OPERATOR Respiratory Rate 15 06/21/2022 4:25 AM BUCKLE ATTACHING MACHINE OPERATOR Oxygen Saturation 99% 01/11/2024 9:07 AM CDT [...] history exists Medical Devices Implanted Type Area Group Therapy Counselor Device Identifier Shelf Expiration Date Model / Serial / Lot [employer] Vascade Mvp 6-12fr Venous Closure [id number] - [id number] - [id number] Implanted:Qty : 1 on 2022 by Garfield Mcdnoald MD PhD at [facility] Collagen Right: Groin [employer] 02/24/2024 800-612C-1 0U / [id number] 4A / [id number] [id number] [employer] Vascade Mvp 6-12fr Venous Closure [id number] - [id number] - [id number] Implanted:Qty : 1 on 2022 by Garfield Mcdonald MD PhD at [facility] Collagen Left: Groin [employer] 02/24/2024 800-612C-1 0U / [id number] 4A / [id number] 4A [employer] Device Closure Vascade Od5 Fr Femoral Artery [id number] - [id number] - [id number] Implanted:Qty : 1 on 2022 by Garfield Mcdonald MD PhD at [facility] Collagen Left: Groin [employer] 04/03/2024 700-500DX- 05U / [id number] 17A / [id number] 17A [employer] Vascade Mvp 6-12fr Venous Closure [id number] - [id number] - [id number] Implanted:Qty : 1 on 2022 by Garfield Mcdonald MD PhD at [facility] Collagen Left: Patricia [employer] 02/16/2024 800-612C-1 0U / [id number] 1A / [id number] 1A Insurance [employer] [place] [employer] [place] Advance Directives For more information, please contact: [phone] * Full Code (Latest Code Status on File) Date Activated Date Inactivated Comments 09/16/2021 5:25 PM 09/19/2021 7:31 PM Care Teams Veterinary X Ray Operator Relationship Specialty Start Date End Date All Guerra MD [address] [place] [address] PCP - General 01/10/17
--- OUTSIDE RECORDS SUMMARY | 2024-09-15 08:04 | XMS_ITS | Referral Summary ---
Author Organization [facility] Address [address] [place] [address] Care Team Providers Care Driver Guard Name Role Phone All Guerra MD Primary Care Provider Encounters Date Type Department Care Team Description 09/03/2024 Telephone [facility] Cardiology [address] [facility] 8th [place] [address] [place] [address] Garfield Mcdonald MD PhD 07/07/2024 Telephone [facility] Cardiology [address] [facility] 8th [place] [address] [place] [address] Mony Ross NP from Last [...] 09/16/2021 Assessment & Plan (06/21/2022 8:22 AM HIM CODER): -Continue statin Assessment & Plan (09/18/2021 10:28 [...] will obtain event monitor Stop Eliquis - THGEB2OFLt score 0 Continue metoprolol 50 mg BID Follow up in 6 months, sooner as needed Assessment & Plan (10/31/2022 10:08 AM CDT): Paroxysmal atrial fibrillation s/p PVI ablation 2022 He had limited early AF recurrence, no AF in the past several months Stop dofetilide Continue metoprolol 50 mg BID No longer on oral anticoagulation - WPAYI6XTEd score 0 He has samples of Eliquis to take if he has a prolonged episode of AF Encouraged him to limit alcohol intake Continue regular exercise Follow up in 6 months, sooner as needed Assessment & Plan (07/20/2022 4:10 PM HIM CODER): Paroxysmal atrial fibrillation s/p PVI ablation 2022 [...] needed Assessment & Plan (06/21/2022 8:22 AM HIM CODER): S/p AFib ablation on 06/20. Feels well. 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 HIM CODER Gender Identity Not on file Sexual Orientation Not on file Last Filed Vital Signs Vital Sign Reading Time Taken Comments Blood Pressure 133/80 01/11/2024 9:07 AM CDT Pulse 49 01/11/2024 9:07 AM CDT Temperature 36.5 C (97.7 F) 06/21/2022 4:25 AM HIM CODER Respiratory Rate 15 06/21/2022 4:25 AM HIM CODER Oxygen Saturation 99% 01/11/2024 9:07 AM CDT Inhaled Oxygen Concentration - - Weight 70.2 kg (154 lb 12.8 oz) 01/11/2024 9:07 AM CDT Height 167.6 cm (5' 6 ) 01/11/2024 9:07 AM CDT Body Mass Index 24.99 01/11/2024 9:07 AM CDT Plan of Treatment Not on file Medical Devices Implanted Type Area Commodity Director Device Identifier Shelf Expiration Date Model / Serial / Lot [employer] Vascade Mvp 6-12fr Venous Closure [id number] - [id number] - [id number] Implanted:Qty : 1 on 2022 by Garfield Mcdonald MD PhD at [facility] Collagen Right: Groin [employer] 02/24/2024 800-612C-1 0U / [id number] 4A / [id number] 4A [employer] Vascade Mvp 6-12fr Venous Closure [id number] - [id number] - [id number] Implanted:Qty : 1 on 2022 by Garfield Mcdonald MD PhD at [facility] Collagen Left: Groin [employer] 02/24/2024 800-612C-1 0U / [id number] 4A / [id number] 4A [employer] Device Closure Vascade Od5 Fr Femoral Artery [id number] - [id number] - [id number] Implanted:Qty : 1 on 2022 by Garfield Mcdonald MD PhD at [facility] Collagen Left: Groin [employer] 04/03/2024 700-500DX- 05U / [id number] 17A / [id number] 17A [employer] Vascade Mvp 6-12fr Venous Closure [id number] - [id number] - [id number] Implanted:Qty : 1 on 2022 by Garfield Mcdonald MD PhD at [facility] Collagen Left: Groin [employer] 02/16/2024 800-612C-1 0U / [id number] 1A / [id number] 1A Insurance [facility] [place] Advance Directives For more information, please contact: [phone] * Full Code (Latest Code Status on File) Date Activated Date Inactivated Comments 09/16/2021 5:25 PM 09/19/2021 7:31 PM Care Teams Driver Guard Relationship Specialty Start Date End Date All Guerra MD [address] [place] [address] PCP - General 01/10/17
--- OUTSIDE RECORDS SUMMARY | 2024-09-15 08:04 | XMS_ITS | Encounter Summary ---
Author Organization [facility] Address [address] [place] [address] Phone Care Team Providers Care Assembler Liquid Center Name Role Phone All Guerra MD Primary Care Provider Encounter Details Date Type Department Care Team (Late st Contact Info) Description 04/16/2018 Telephone [facility] Cardiology [address] [facility] Advanced Medicine 8th [place] [address] [place] [address] Ashley Car, MPH Social History Tobacco Use Types Packs/Day Years Used Date Smoking Tobacco: Former Sex and Gender Information Value Date Recorded Sex Assigned at Not on file Legal Sex Male 1:55 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
--- OUTSIDE RECORDS SUMMARY | 2024-09-15 08:04 | XMS_ITS | Clinical Summary ---
Author Organization [facility] Care Team Providers Care Tech Ed Teacher Name Role Phone Unavailable Primary Care Provider [...]
--- OUTSIDE RECORDS SUMMARY | 2024-09-15 08:04 | XMS_ITS | Encounter Summary ---
Author Organization [facility] Address [address] [place] [address] Phone Care Team Providers Care Log Buyer Name Role Phone All Guerra MD Primary Care Provider [phone] Encounter Details Date Type Department Care Team (Late st Contact Info) Description 09/03/2024 Telephone [facility] Cardiology [address] [facility] Advanced Medicine 8th [place] [address] [place] [address] Garfield Mcdonald MD PhD [address] [facility] [address] [place], [place] [id number] Social History Tobacco Use Types Packs/Day Years 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 SPOOL HAULER Gender Identity Not on file Sexual Orientation Not on file documented as of this encounter Miscellaneous Notes * Telephone Encounter - Juan Shepherd - 09/04/2024 1:39 PM CDT Spoke with patient/ patient spouse and the appointment has been set for (11/06/24) with Machine Joiner Cementer. * Telephone Encounter - Marisol Zamudio - 09/03/2024 8:50 AM CDT Harry TRAORE Scheduling Pt would like a call back to [facility] appt. documented in this encounter Plan of Treatment Not on file documented as of this encounter Visit Diagnoses Not on filedocumented in this encounter Care Teams Log Buyer Relationship Specialty Start Date End Date All Guerra MD [address] [place] [address] PCP - General 01/10/17 documented as of this encounter
[2024-09-15 08:18] LABS: Basophils Absolute Auto 0.08 K/mm3 (0.00-0.10); Basophils Percent Auto 0.7 % (0.0-1.0); Eosinophils Absolute Auto 0.06 K/mm3 (0.02-0.50); Eosinophils Percent Auto 0.5 % (1.0-6.0); Hematocrit 38.9 % (40.0-54.0); Hemoglobin 13.1 g/dL (14.0-18.0); Immature Granulocyte Absolute 0.21 K/mm3 (0.00-0.00); Immature Granulocyte Percent A 1.8 % (0.0-0.0); Immature Platelet Fraction Pct 0.5 % (1.0-7.0); Lymphocytes Absolute Auto 2.73 K/mm3 (1.10-4.50); Lymphocytes Percent Auto 23.6 % (18.0-42.0); Mean Corpuscular HGB Conc 33.7 g/dL (32-36); Mean Corpuscular Hemoglobin 32.4 pg (27.0-31.0); Mean Corpuscular Volume 96.3 fL (78.0-102.0); Mean Platelet Volume 7.8 fl (8.7-11.0); Monocytes Percent Auto 6.9 % (2.0-11.0); Neutrophils Percent Auto 66.5 % (50.0-70.0); Platelet Count Result 647 K/mm3 (150-420); Red Blood Count 4.04 M/mm3 (4.70-6.10); Red Cell Distribution Width 12.8 % (11.6-14.4); White Blood Count 11.6 K/mm3 (4.8-10.8)
[2024-09-15 08:44] LABS: Anion Gap 10 mmol/L (4-12); Blood Urea Nitrogen 26 mg/dL (7-18); Calcium 9.1 mg/dL (8.5-10.1); Carbon Dioxide 28 mmol/L (21-32); Chloride 98 mmol/L (98-108); Estimated Glomerular Filt Rate > 60; Glucose 96 mg/dL (70-99); Osmolality Calculated 286 mOsm/kg (285-295); Potassium 4.4 mmol/L (3.5-5.1); Sodium 136 mmol/L (136-145)
== END 2024-09-15 07:57 | disposition home or self-care (01) ==
LOC: CHSLAB 07:57
PROVIDERS: PCP Internal Medicine; Visit Provider Internal Medicine
DX: J06.9 Acute upper respiratory infection, unspecified (principal); E87.1 Hypo-osmolality and hyponatremia
CPT/HCPCS: 36415; 71046; 80048; 85025; 85055

== ENCOUNTER 2024-11-15 16:06 | Emergency (ER) | payer BC, SELFPAY ==
--- OUTSIDE RECORDS SUMMARY | 2024-11-15 16:08 | XMS_ITS | Referral Summary ---
Author Organization [facility] al Address [address] [place] [address] Care Team Providers Care Technician Telecommunication Systems Name Role Phone All Guerra MD Primary Care Provider Encounters Date Type Department Care Team Description 11/06/2024 Results Follow-Up [facility] Cardiology [facility] [address] [place] [address] [place] [address] Mony Ross NP ECG 12 lead 11/06/2024 9:00 AM CDT Office Visit [facility] Cardiology [address] [place] [address] [place] [address] [place] [address] Mony Ross NP Atrial fibrillation, unspecified type (HCC) (Primary Dx) 09/03/2024 Telephone [facility] Cardiology [address] [place] [address] [place] [address] [place] [id number] Garfield Mcdonald MD PhD from Last 3 Months Allergies No known active allergies Medications pravastatin (PRAVACHOL) 10 mg tablet Take 1 tablet (10 mg total) by mouth daily after dinner 1 Active metoprolol tartrate (LOPRESSOR) 50 mg immediate release tablet Take 1 tablet (50 mg total) by mouth 2 (two) times a day 1 Active MULTIVITAMIN ORAL Take 1 tablet by mouth every morning Active albuterol HFA (PROVENTIL HFA,VENTOLIN HFA,PROAIR HFA) 90 mcg/actuation inhaler 5 Active Arnuity Ellipta 200 mcg/actuation inhaler 5 Active busPIRone (BUSPAR) 10 mg tabletIndicatio ns:Generalized Anxiety Disorder Take 1 tablet (10 mg total) by mouth 2 (two) times a day 1 11/07/19 Discontinu ed(Patient Reported) apixaban (ELIQUIS) 5 mg tablet Take 1 tablet (5 mg total) by mouth 2 (two) times a day 180 tablet 4 11/07/19 Discontinu ed(Patient Reported) Active Problems Problem Noted Date Diagnosed Date HLD (hyperlipidemia) 09/16/2021 Assessment & Plan (06/21/2022 8:22 AM PARALEGAL LEGAL SECRETARY): -Continue statin Assessment & Plan (09/18/2021 10:28 [...] inhalers Atrial fibrillation 07/12/2018 Assessment & Plan (11/06/2024 10:45 AM CDT): -Paroxysmal atrial fibrillation s/p PVI ablation 2022 -He continues to do well post ablation with infrequent AF episodes, 1 in the past year lasting 3 hours -Not on oral anticoagulation - [id number] score 0 -Continue metoprolol tartrate 50 mg BID Assessment & Plan (01/11/2024 1:28 PM CDT): Paroxysmal atrial fibrillation s/p PVI ablation 2022 Recent palpitations have subsided. SR today. If arrhythmias recur, will obtain event monitor Stop Eliquis - [id number] score 0 Continue metoprolol 50 mg BID Follow up in 6 months, sooner as needed Assessment & Plan (10/31/2022 10:08 AM CDT): Paroxysmal atrial fibrillation s/p PVI ablation 2022 He had limited early AF recurrence, no AF in the past several months Stop dofetilide Continue metoprolol 50 mg BID No longer on oral anticoagulation - [id number] score 0 He has samples of Eliquis to take if he has a prolonged episode of AF Encouraged him to limit alcohol intake Continue regular exercise Follow up in 6 months, sooner as needed Assessment & Plan (07/20/2022 4:10 PM PARALEGAL LEGAL SECRETARY): Paroxysmal atrial fibrillation s/p PVI ablation 2022 [...] needed Assessment & Plan (06/21/2022 8:22 AM PARALEGAL LEGAL SECRETARY): S/p AFib ablation on 06/20. Feels well. [...] 2021. Ambulatory monitoring revealed paroxysms of atrial fibrillation/flutter. He was prescribed propafenone and metoprolol. Echo [...] 2021. Ambulatory monitoring revealed paroxysms of atrial fibrillation/flutter. He was prescribed propafenone and metoprolol. Echo [...] 2021. Ambulatory monitoring revealed paroxysms of atrial fibrillation/flutter. He was prescribed propafenone and metoprolol. Echo [...] 187, but was told it was not AF. Ambulatory monitoring revealed paroxysms of atrial fibrillation/flutter. He was prescribed propafenone and metoprolol. Echo 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 PARALEGAL LEGAL SECRETARY Gender Identity Not on file Sexual Orientation Not on file Last Filed Vital Signs Vital Sign Reading Time Taken Comments Blood Pressure 131/79 11/06/2024 8:55 AM CDT Pulse 55 11/06/2024 8:55 AM CDT Temperature 36.5 C (97.7 F) 06/21/2022 4:25 AM PARALEGAL LEGAL SECRETARY Respiratory Rate 15 06/21/2022 4:25 AM PARALEGAL LEGAL SECRETARY Oxygen Saturation 99% 11/06/2024 8:55 AM CDT Inhaled Oxygen Concentration - - Weight 69.4 kg (153 lb) 11/06/2024 8:55 AM CDT Height 170.2 cm (5' 7) 11/06/2024 8:55 AM CDT Body Mass Index 23.96 11/06/2024 8:55 AM CDT Plan of Treatment Not on file Medical Devices Implanted Type Area Software Sales Device Identifier Shelf Expiration Date Model / Serial / Lot [employer] Vascade Mvp 6-12fr Venous Closure [id number] - [id number] - [id number] Implanted:Qty : 1 on 2022 by Garfield Mcdonald MD PhD at [facility] Collagen Right: Groin [employer] 02/24/2024 800-612C-1 0U / [id number] / [id number] [employer] Vascade Mvp 6-12fr Venous Closure [id number] - [id number] - [id number] Implanted:Qty : 1 on 2022 by Garfield Mcdonald MD PhD at [facility] Collagen Left: Groin [employer] 02/24/2024 800-612C-1 0U / [id number] / [id number] [employer] Device Closure Vascade Od5 Fr Femoral Artery [id number] - [id number] - [id number] Implanted:Qty : 1 on 2022 by Garfield Mcdonald MD PhD at [facility] Collagen Left: Groin [employer] 04/03/2024 [id number] 05U / [id number] / [id number] [employer] Vascade Mvp 6-12fr Venous Closure [id number] - [id number] - [id number] Implanted:Qty : 1 on 2022 by Garfield Mcdonald MD PhD at [facility] Collagen Left: Groin [employer] 02/16/2024 800-612C-1 0U / [id number] [id number] / [id number] Procedures Procedure Name Priority Date/Time Associated Diagnosis Comments ECG 12-LEAD Routine 11/06/2024 8:51 AM CDT Atrial fibrillation, unspecified type (HCC) from Last 3 Months Results * ECG 12 lead (11/06/2024 8:51 AM CDT) us Mony Ross NP ECG ORDERABLES Edited Re sult - Final from Last 3 Months Insurance [employer] [place] [employer] [place] Advance Directives For more information, please contact: [phone] * Full Code (Latest Code Status on File) Date Activated Date Inactivated Comments 09/16/2021 5:25 PM 09/19/2021 7:31 PM Care Teams Technician Telecommunication Systems Relationship Specialty Start Date End Date All Guerra MD [address] [place] [address] PCP - General 01/10/17
--- OUTSIDE RECORDS SUMMARY | 2024-11-15 16:08 | XMS_ITS | Encounter Summary ---
Author Organization [facility] Address [address] [place] [address] Phone Care Team Providers Care Apartment Manager Name Role Phone All Guerra MD Primary Care Provider Encounter Details Date Type Department Care Team (Late st Contact Info) Description 04/16/2018 Telephone [facility] Cardiology [address] [facility] Advanced Medicine 8th [place] [address] [place] [address] Ashley Car, MPH Social History Tobacco Use Types Packs/Day Years Used Date Smoking Tobacco: Former Sex and Gender Information Value Date Recorded Sex Assigned at Not on file Legal Sex Male 1:55 PM 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
--- OUTSIDE RECORDS SUMMARY | 2024-11-15 16:08 | XMS_ITS | Clinical Summary ---
Author Organization [facility] Care Team Providers Care Fixer Supervisor Name Role Phone Unavailable Primary Care Provider [...]
--- OUTSIDE RECORDS SUMMARY | 2024-11-15 16:08 | XMS_ITS | Encounter Summary ---
Author Organization [facility] Address [address] [place] [address] Phone Care Team Providers Care Senior Application Security Consultant Name Role Phone All Guerra MD Primary Care Provider Encounter Details Date Type Department Care Team (Latest Contact Info) Description 05/26/2021 Orders Only [facility] Scanning, Provider Social History Tobacco Use Types Packs/Day Years Used Date Smoking Tobacco: Former Sex and Gender Information Value Date Recorded Sex Assigned at Not on file Legal Sex Male 1:55 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
--- OUTSIDE RECORDS SUMMARY | 2024-11-15 16:08 | XMS_ITS | Encounter Summary ---
Author Organization [facility] Address [address] [place] [address] Phone Care Team Providers Care Mortgage Collector Name Role Phone All Guerra MD Primary Care Provider [phone] Encounter Details Date Type Department Care Team (Late st Contact Info) Description 04/25/2018 Telephone [facility] Cardiology [address] [facility] Advanced Medicine 8th [place] [address] [place] [address] Mony Loyola MD [address] [facility] [address] [place] [address] Social History Tobacco Use Types Packs/Day Years Used Date Smoking Tobacco: Former Sex and Gender Information Value Date Recorded Sex Assigned at Not on file Legal Sex Male 1:55 PM NITROGLYCERIN NEUTRALIZER Gender Identity Not on file Sexual Orientation Not on file documented as of this encounter Plan of Treatment Not on file documented as of this encounter Visit Diagnoses Not on filedocumented in this encounter Care Teams Mortgage Collector Relationship Specialty Start Date End Date All Guerra MD [address] [place], [place] [id number] PCP - General 01/10/17 documented as of this encounter
--- OUTSIDE RECORDS SUMMARY | 2024-11-15 16:08 | XMS_ITS | Continuity of Care Document ---
Author Organization [facility] Address [address] [facility] [address] [place] [address] Phone Care Team Providers Care Political Consultant Name Role Phone Oleg MS, OTR/L, Farida JACKSON Unavailable Unavailable Procedures Procedure Date OT RE-EVALUATION THERAPEUTIC EXERCISES FUNC ACTIVITY HOT/COLD PACK THERAPEUTIC EXERCISES FUNC ACTIVITY OT EVALUATION THERAPEUTIC EXERCISES Advance Directives Directive Yes / No Effective Date File Name No Information Encounters Encounter Description Practice Location Reason(s) For Visit Diagnoses Date Provider Providers Copied on Encounter [facility] [facility] [address] [place] [address], [id number], tel:[phone] [place] No Information 4 Oleg Iqbal. [address] [facility], [facility] [address], [place], [facility], . tel:[phone], [id number], tel:[phone] [place] No Information 4 Oleg Iqbal. [address] [facility], [facility] [address], [place], [facility], . tel:[phone] Referring Provider: Blas Loyola, [address], [address]. tel:[phone] [place], [id number], tel:[phone] [place] No Information 4 Oleg Iqbal. [address] [facility], [address], [facility], . tel:[phone] Referring Provider: Blas Loyola, [address] [facility] [address], [place], [address]. tel:[phone] [facility], [address] [facility] [address], [place], [place], [id number], tel:[phone] [place] Pain in joint involving hand 4 Oleg Iqbal. [address] [facility], [facility] [address], [place], [address], . tel:[phone] Referring Provider: Blas Loyola, [address] [facility] [address], [place], [address]. tel:[phone] Family History Family Member Type Diagnosis Age At Onset No Information Payers Payer name Insurance type Covered green party ID Allyson barrios(s) Katharina [id number] Social History Type Description Quantity Date Captured [...]
--- OUTSIDE RECORDS SUMMARY | 2024-11-15 16:08 | XMS_ITS | Clinical Summary ---
Author Organization [facility] al Address [address] [place] [address] Care Team Providers Care Portfolio Architect Name Role Phone All Guerra MD Primary Care Provider [phone] Allergies No known active allergies Medications pravastatin [...] 2 (two) times a day 1 11/07/19 25 Discontinu ed(Patient Reported) apixaban (ELIQUIS) 5 mg tablet Take 1 tablet (5 mg total) by mouth 2 (two) times a day 180 tablet 4 11/07/19 Discontinu ed(Patient Reported) Active Problems Problem Noted Date Diagnosed Date HLD (hyperlipidemia) 09/16/2021 Assessment & Plan (06/21/2022 8:22 AM PART TIME): -Continue statin Assessment & Plan (09/18/2021 10:28 [...] 3 hours -Not on oral anticoagulation - [id number] score 0 -Continue metoprolol tartrate 50 mg BID Assessment & Plan (01/11/2024 1:28 PM CDT): Paroxysmal atrial fibrillation s/p PVI ablation 2022 Recent palpitations have subsided. SR today. If arrhythmias recur, will obtain event monitor Stop Eliquis - JUVQR1HQBk score 0 Continue metoprolol 50 mg BID Follow up in 6 months, sooner as needed Assessment & Plan (10/31/2022 10:08 AM CDT): Paroxysmal atrial fibrillation s/p PVI ablation 2022 He had limited early AF recurrence, no AF in the past several months Stop dofetilide Continue metoprolol 50 mg BID No longer on oral anticoagulation - ADWFO1UCUq score 0 He has samples of Eliquis to take if he has a prolonged episode of AF Encouraged him to limit alcohol intake Continue regular exercise Follow up in 6 months, sooner as needed Assessment & Plan (07/20/2022 4:10 PM PART TIME): Paroxysmal atrial fibrillation s/p PVI ablation 2022 [...] needed Assessment & Plan (06/21/2022 8:22 AM PART TIME): S/p AFib ablation on 06/20. Feels well. [...] Date Type Department Care Team Description 11/06/2024 9:00 AM CDT Office Visit [facility] Cardiology [address] [place] [address] Advanced Medicine 8th [place] [address] [place] [address] Mony Ross NP Atrial fibrillation, unspecified type (HCC) (Primary Dx) 11/06/2024 Results Follow-Up [facility] Cardiology [address] [place] [address] Medicine 8th [place] [address] [place] [address] Mony Ross NP ECG 12 lead 09/03/2024 Telephone [facility] Cardiology [address] [place] [address] 8th [place] [address] [place] [address] Garfield Mcdonald MD PhD from Last 3 Months Immunizations Immunization Administration Dates Next Due Influenza, Unspecified 03/25/2021 Surgical History Surgery Date Site/Laterality Comments CARPAL TUNNEL RELEASE THUMB SURGERY Medical History Medical History Date Comments Atrial fibrillation (HCC) Asthma Sleep apnea Family History Medical History Relation Name Comments Cancer Mother Family history of cancer - (Added by SHAHRIAR Conv) Lung disease Mother Family history of lung disease - (Added by SHAHRIAR Conv) Anesthesia problems Neg Hx Relation Name 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 PART TIME Gender Identity Not on file Sexual Orientation Not on file Obstetrics History Last Filed Vital Signs Vital Sign Reading Time Taken Comments Blood Pressure 131/79 11/06/2024 8:55 AM CDT Pulse 55 11/06/2024 8:55 AM CDT Temperature 36.5 C (97.7 F) 06/21/2022 4:25 AM PART TIME Respiratory Rate 15 06/21/2022 4:25 AM PART TIME Oxygen Saturation 99% 11/06/2024 8:55 AM CDT Inhaled Oxygen Concentration - - Weight 69.4 kg (153 lb) 11/06/2024 8:55 AM CDT Height 170.2 cm (5' 7) 11/06/2024 8:55 AM CDT Body Mass Index 23.96 11/06/2024 8:55 AM CDT Plan of Treatment Health Maintenance [...] Td or Tdap) 04/02/2021 04/02/2011 Influenza Vaccine (Season Ended) 2025 03/25/2021, 06/13/2019, 02/14/2017, Additional history exists Medical Devices Implanted Type Area Shipping Checker Device Identifier Shelf Expiration Date Model / Serial / Lot [employer] Vascade Mvp 6-12fr Venous Closure [id number] - [id number] - [id number] Implanted:Qty : 1 on 2022 by Garfield Mcdonald MD PhD at [facility] Collagen Right: Groin [employer] 02/24/2024 800-612C-1 0U / [id number] / [id number] [id number] [employer] Vascade Mvp 6-12fr Venous Closure [id number] - [id number] - [id number] Implanted:Qty : 1 on 2022 by Garfield Mcdonald MD PhD at [facility] Collagen Left: Groin [employer] 02/24/2024 800-612C-1 0U / [id number] / [id number] [id number] [employer] Device Closure Vascade Od5 Fr Femoral Artery [id number] - [id number] - [id number] Implanted:Qty : 1 on 2022 by Garfield Mcdonald MD PhD at [facility] Collagen Left: Groin [employer] 04/03/2024 700-500DX- 05U / [id number] / [id number] 17A [employer] Vascade Mvp 6-12fr Venous Closure [id number] - [id number] - [id number] Implanted:Qty : 1 on 2022 by Garfield Mcdonald MD PhD at [facility] Collagen Left: Groin [employer] 02/16/2024 800-612C-1 0U / [id number] 1A / [id number] [id number] Procedures Procedure Name Priority Date/Time Associated Diagnosis Comments ECG 12-LEAD Routine 11/06/2024 8:51 AM CDT Atrial fibrillation, unspecified type (HCC) from Last 3 Months Results * ECG 12 lead (11/06/2024 8:51 AM CDT) us Mony Ross THIRD GRADE TEACHER ECG ORDERABLES Edited Re sult - Final from Last 3 Months Insurance [place] BLUE ACCESS [facility] Advance Directives For more information, please contact: [phone] * Full Code (Latest Code Status on File) Date Activated Date Inactivated Comments 09/16/2021 5:25 PM 09/19/2021 7:31 PM Care Teams Portfolio Architect Relationship Specialty Start Date End Date All Guerra MD [address] [place] [address] PCP - General 01/10/17
--- OUTSIDE RECORDS SUMMARY | 2024-11-15 16:08 | XMS_ITS | Encounter Summary ---
Author Organization [facility] Address [address] [place] [address] Phone Care Team Providers Care Operations/Dispatch Name Role Phone All Guerra MD Primary Care Provider Encounter Details Date Type Department Care Team (Late st Contact Info) Description 11/06/2024 Results Follow-Up [facility] Cardiology [address] 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
[2024-11-15 16:09] VITALS: BP 122/73; PULSE 67; RESP 16; TEMP 36.6; O2SAT 98
--- NOTE | 2024-11-15 16:34 | ED.SKABFB ---
HPI - Skin/Abscess/Foreign Bdy General Chief complaint: Skin/Abscess/Foreign Body Stated complaint: fish hook in finger Time Seen by Provider: 11/15/24 16:14 Source: patient Mode of arrival: ambulatory Limitations: no limitations History of Present Illness HPI narrative: this is a 59-year-old male with no significant past medical history while fishing today had a fishhook that was imbedded into his left index finger no other injuries currently no bleeding and patient is up-to-date with his tetanus MD complaint: other ( fishhook imbedded into his left inde) Onset (ago): hour(s) Tetanus up to date: yes Severity: mild Quality: sharp Pain Consistency: constant Relieving factors: none Related Data Home Medications ?Medication ?Instructions ?Recorded ?Confirmed ?Last Taken ?Type albuterol sulfate 90 mcg/actuation 2 puff inhalation Q4H PRN Cough 03/18/20 01/24/24 Unknown History aerosol inhaler (ProAir HFA) cetirizine 10 mg tablet (Zyrtec) 10 mg PO DAILY 03/18/20 01/24/24 Unknown History apixaban 5 mg tablet (Eliquis) 5 mg PO BID 01/09/24 01/24/24 01/11/24 History fluticasone furoate 100 1 inhalation inhalation Q24H PRN 01/09/24 01/24/24 Unknown History mcg/actuation blister powder for Shortness Of Breath inhalation (Arnuity Ellipta) metoprolol tartrate 50 mg tablet 50 mg PO BID 01/09/24 01/24/24 01/24/24 History (Lopressor) pravastatin 10 mg tablet 10 mg PO HS 01/09/24 01/24/24 Unknown History Allergies Allergy/AdvReac Type Severity Reaction Status Date / Time No Known Allergies Allergy Verified 11/15/24 16:07 Review of Systems Review of Systems: All systems reviewed & are unremarkable except as noted in HPI and below PMFSH Past Medical History Medical History Chronic atrial fibrillation, unspecified Seasonal allergies Suspected sleep apnea History of carpal tunnel syndrome Asthma Surgical History Surgical History History of carpal tunnel surgery Social History Social History Smoking packs per day: 0.5 Smoking cigarettes per day: 10.0 Years smoked: 16 Smoking pack-years: 8.00 Smoking status: Former smoker Tobacco type: cigarettes Smoking end date: 06/25/09 Alcohol intake: current Drinks per week: 5 Alcohol use details: BEERS Substance use: never Substance use type: does not use Living arrangements: with family Spiritual care concerns: No Exam Const: General: healthy appearing and no acute distress Nutritional Appearance: well nourished Limitations: no limitations Resp: Effort & Inspection: normal respiratory effort Auscultation: clear to auscultation bilaterally Cardio: Rhythm: regular rhythm Skin: General skin exam: normal color Rashes: no rashes Wounds: wounds noted Other: fishhook in his left index finger Neuro: General: patient oriented x3, moves all extremities, no meningeal signs and no focal motor deficits Course Course Emergency Course: lidocaine used and injected into the left index finger where the fishhook was is imbedded and 11 blade was used to form a small cut and fish oil was removed from the left index finger. Vital Signs Vital signs: Vital Signs Temperature 36.6 C 11/15/24 16:09 Pulse Rate 67 11/15/24 16:09 Respiratory Rate 16 11/15/24 16:09 Blood Pressure 122/73 11/15/24 16:09 Pulse Oximetry 98 11/15/24 16:09 Oxygen Delivery Room Air 11/15/24 16:09 Temperature 36.6 C 11/15/24 16:09 Pulse Rate 67 11/15/24 16:09 Respiratory Rate 16 11/15/24 16:09 Blood Pressure 122/73 11/15/24 16:09 Pulse Oximetry 98 11/15/24 16:09 Oxygen Delivery Room Air 11/15/24 16:09 Procedures Foreign Body Removal Foreign Body #1: Foreign Body Removal Date: 11/15/24 Foreign Body Removal Time: 16:37 Site: left Description of foreign body: fish hook Sedation/Analgesia: other ( Lidocaine 5mL injected into the fishhook area of the finger) Technique: removal with forceps Confirmed by:: direct visualization Complications: pain Critical Care Time Critical Care Time Critical Care Time: No Discharge Plan Discharge Clinical Impression: Foreign body (FB) in soft tissue Patient Disposition: Home Condition: Stable Instructions: Antibiotic Form, Soft Tissue Foreign Body (ED) Additional Instructions: advised patient to use Neosporin to affected area daily x4 days and to follow with primary if symptoms persist or worsen. Patient Language: Tamazight Prescriptions: No Action albuterol sulfate [ProAir HFA] 90 mcg/actuation HFA aerosol inhaler 2 puff INHALATION Q4H PRN (Reason: Cough) cetirizine [Zyrtec] 10 mg tablet 10 mg PO DAILY pravastatin 10 mg tablet 10 mg PO HS Eliquis 5 mg Tablet 5 mg PO BID metoprolol tartrate [Lopressor] 50 mg tablet 50 mg PO BID Arnuity Ellipta 100 mcg/actuation blister with device 1 inhalation INHALATION Q24H PRN (Reason: Shortness Of Breath) Rx Instructions: Take at same time each day. Rinse and spit after each use. Follow-up/Referrals: All Guerra MD [Primary Care Provider] - Time of Disposition: 16:39
--- OUTSIDE RECORDS SUMMARY | 2024-11-15 16:44 | XMS_ITS | Clinical Summary ---
Author Organization [facility] al Address [address] [place] [address] Care Team Providers Care Outside Upholsterer Name Role Phone All Guerra MD Primary Care Provider [phone] Allergies No known active allergies Medications pravastatin [...] 09/16/2021 Assessment & Plan (06/21/2022 8:22 AM ORDNANCE ENGINEERING TECHNICIAN): -Continue statin Assessment & Plan (09/18/2021 10:28 [...] 3 hours -Not on oral anticoagulation - [id number] score 0 -Continue metoprolol tartrate 50 mg BID Assessment & Plan (01/11/2024 1:28 PM CDT): Paroxysmal atrial fibrillation s/p PVI ablation 2022 Recent palpitations have subsided. SR today. If arrhythmias recur, will obtain event monitor Stop Eliquis - [id number] score 0 Continue metoprolol 50 mg BID Follow up in 6 months, sooner as needed Assessment & Plan (10/31/2022 10:08 AM CDT): Paroxysmal atrial fibrillation s/p PVI ablation 2022 He had limited early AF recurrence, no AF in the past several months Stop dofetilide Continue metoprolol 50 mg BID No longer on oral anticoagulation - MWAMO5KIMb score 0 He has samples of Eliquis to take if he has a prolonged episode of AF Encouraged him to limit alcohol intake Continue regular exercise Follow up in 6 months, sooner as needed Assessment & Plan (07/20/2022 4:10 PM ORDNANCE ENGINEERING TECHNICIAN): Paroxysmal atrial fibrillation s/p PVI ablation 2022 [...] needed Assessment & Plan (06/21/2022 8:22 AM ORDNANCE ENGINEERING TECHNICIAN): S/p AFib ablation on 06/20. Feels well. [...] Description 11/06/2024 9:00 AM CDT Office Visit [facility] Cardiology [address] [place] [address] Advanced Medicine 8th [place] [address] [place] [address] Mony Ross NP Atrial fibrillation, unspecified type (HCC) (Primary Dx) 11/06/2024 Results Follow-Up [facility] Cardiology [address] [place] [address] Medicine 8th [place] [address] [place] [address] Mony Ross NP ECG 12 lead 09/03/2024 Telephone [facility] Cardiology [address] [place] [address] 8th [place] [address] [place] [address] Garfield Mcdonald MD PhD from Last 3 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 ORDNANCE ENGINEERING TECHNICIAN Gender Identity Not on file Sexual Orientation Not on file Obstetrics History Last Filed Vital Signs Vital Sign Reading Time Taken Comments Blood Pressure 131/79 11/06/2024 8:55 AM CDT Pulse 55 11/06/2024 8:55 AM CDT Temperature 36.5 C (97.7 F) 06/21/2022 4:25 AM ORDNANCE ENGINEERING TECHNICIAN Respiratory Rate 15 06/21/2022 4:25 AM ORDNANCE ENGINEERING TECHNICIAN Oxygen Saturation 99% 11/06/2024 8:55 AM CDT [...] history exists Medical Devices Implanted Type Area Addiction Treatment Counselor Device Identifier Shelf Expiration Date Model / Serial / Lot [employer] Vascade Mvp 6-12fr Venous Closure [id number] - [id number] - [id number] Implanted:Qty : 1 on 2022 by Garfield Mcdonald MD PhD at [facility] Collagen Right: Groin [employer] 02/24/2024 800-612C-1 0U / [id number] / [id number] [employer] Vascade Mvp 6-12fr Venous Closure [id number] - [id number] - [id number] Implanted:Qty : 1 on 2022 by Garfield Mcdonald MD PhD at [facility] Collagen Left: Groin [employer] 02/24/2024 800-612C-1 0U / [id number] / [id number] [employer] Device Closure Vascade Od5 Fr Femoral Artery [id number] - [id number] - [id number] Implanted:Qty : 1 on 2022 by Garfield Mcdonald MD PhD at [facility] Collagen Left: Groin [employer] 04/03/2024 700-500DX- 05U / [id number] / [id number] [id number] [employer] Vascade Mvp 6-12fr Venous Closure [id number] - [id number] - [id number] Implanted:Qty : 1 on 2022 by Gafrield Mcdonald MD PhD at [facility] Collagen Left: Groin [employer] 02/16/2024 800-612C-1 0U / [id number] / [id number] Procedures Procedure Name Priority Date/Time Associated Diagnosis Comments ECG 12-LEAD Routine 11/06/2024 8:51 AM CDT Atrial fibrillation, unspecified type (HCC) from Last 3 Months Results * ECG 12 lead (11/06/2024 8:51 AM CDT) us Mony Ross LEAD QA ANALYST ECG ORDERABLES Edited Re sult - Final from Last 3 Months Insurance [place] BL[place] ACC[place] [facility] Advance Directives For more information, please contact: [phone] * Full Code (Latest Code Status on File) Date Activated Date Inactivated Comments 09/16/2021 5:25 PM 09/19/2021 7:31 PM Care Teams Outside Upholsterer Relationship Specialty Start Date End Date All Guerra MD [address] [place] [address] PCP - General 01/10/17
--- OUTSIDE RECORDS SUMMARY | 2024-11-15 16:44 | XMS_ITS | Referral Summary ---
Author Organization [facility] al Address [address] [place] [address] Care Team Providers Care Thread Marker Name Role Phone All Guerra MD Primary Care Provider [phone] Encounters Date Type Department Care Team Description 11/06/2024 Results Follow-Up [facility] Cardiology [facility] [address] [place] [address] [place] [address] Mony Ross NP ECG 12 lead 11/06/2024 9:00 AM CDT Office Visit [facility] Cardiology [address] [place] [address] [place] [address] [place] [address] Mony Ross NP Atrial fibrillation, unspecified type (HCC) (Primary Dx) 09/03/2024 Telephone [facility] Cardiology [address] [place] [address] [place] [address] [place] [id number] Garfield Mcdonald MD PhD from Last 3 [...] 09/16/2021 Assessment & Plan (06/21/2022 8:22 AM RANGELAND MANAGEMENT SPECIALIST): -Continue statin Assessment & Plan (09/18/2021 10:28 [...] 3 hours -Not on oral anticoagulation - XQPKB4UUTf score 0 -Continue metoprolol tartrate 50 mg BID Assessment & Plan (01/11/2024 1:28 PM CDT): Paroxysmal atrial fibrillation s/p PVI ablation 2022 Recent palpitations have subsided. SR today. If arrhythmias recur, will obtain event monitor Stop Eliquis - ESKQO2YDNn score 0 Continue metoprolol 50 mg BID Follow up in 6 months, sooner as needed Assessment & Plan (10/31/2022 10:08 AM CDT): Paroxysmal atrial fibrillation s/p PVI ablation 2022 He had limited early AF recurrence, no AF in the past several months Stop dofetilide Continue metoprolol 50 mg BID No longer on oral anticoagulation - DYREB3OQTi score 0 He has samples of Eliquis to take if he has a prolonged episode of AF Encouraged him to limit alcohol intake Continue regular exercise Follow up in 6 months, sooner as needed Assessment & Plan (07/20/2022 4:10 PM RANGELAND MANAGEMENT SPECIALIST): Paroxysmal atrial fibrillation s/p PVI ablation 2022 [...] needed Assessment & Plan (06/21/2022 8:22 AM RANGELAND MANAGEMENT SPECIALIST): S/p AFib ablation on 06/20. Feels well. 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 RANGELAND MANAGEMENT SPECIALIST Gender Identity Not on file Sexual Orientation Not on file Last Filed Vital Signs Vital Sign Reading Time Taken Comments Blood Pressure 131/79 11/06/2024 8:55 AM CDT Pulse 55 11/06/2024 8:55 AM CDT Temperature 36.5 C (97.7 F) 06/21/2022 4:25 AM RANGELAND MANAGEMENT SPECIALIST Respiratory Rate 15 06/21/2022 4:25 AM RANGELAND MANAGEMENT SPECIALIST Oxygen Saturation 99% 11/06/2024 8:55 AM CDT Inhaled Oxygen Concentration - - Weight 69.4 kg (153 lb) 11/06/2024 8:55 AM CDT Height 170.2 cm (5' 7) 11/06/2024 8:55 AM CDT Body Mass Index 23.96 11/06/2024 8:55 AM CDT Plan of Treatment Not on file Medical Devices Implanted Type Area Collaborative Teacher Device Identifier Shelf Expiration Date Model / Serial / Lot [employer] Vascade Mvp 6-12fr Venous Closure [id number] - [id number] - [id number] Implanted:Qty : 1 on 2022 by Garfield Mcdonald MD PhD at [facility] Collagen Right: Groin [employer] 02/24/2024 800-612C-1 0U / [id number] / [id number] [id number] [employer] Vascade Mvp 6-12fr Venous Closure [id number] - [id number] - [id number] Implanted:Qty : 1 on 2022 by Garfield Mcdonald MD PhD at [facility] Collagen Left: Groin [employer] 02/24/2024 800-612C-1 0U / [id number] / [id number] [id number] [employer] Device Closure Vascade Od5 Fr Femoral Artery [id number] - [id number] - [id number] Implanted:Qty : 1 on 2022 by Garfield Mcdonald MD PhD at [facility] Collagen Left: Groin [employer] 04/03/2024 700-500DX- 05U / [id number] / [id number] [id number] [employer] Vascade Mvp 6-12fr Venous Closure [id number] - [id number] - [id number] Implanted:Qty : 1 on 2022 by Garfield Mcdonald MD PhD at [facility] Collagen Left: Groin [employer] 02/16/2024 800-612C-1 0U / [id number] / [id number] [id number] Procedures Procedure Name Priority Date/Time Associated Diagnosis Comments ECG 12-LEAD Routine 11/06/2024 8:51 AM CDT Atrial fibrillation, unspecified type (HCC) from Last 3 Months Results * ECG 12 lead (11/06/2024 8:51 AM CDT) us Mony Ross NP ECG ORDERABLES Edited Re sult - Final from Last 3 Months [place] Advance Directives For more information, please contact: [phone] * Full Code (Latest Code Status on File) Date Activated Date Inactivated Comments 09/16/2021 5:25 PM 09/19/2021 7:31 PM Care Teams Thread Marker Relationship Specialty Start Date End Date All Guerra MD [address] [place] [address] PCP - General 01/10/17
--- OUTSIDE RECORDS SUMMARY | 2024-11-15 16:44 | XMS_ITS | Encounter Summary ---
Author Organization [facility] Address [address] [place] [address] Phone Care Team Providers Care Industrial Garage Servicer Name Role Phone All Guerra MD Primary Care Provider Encounter Details Date Type Department Care Team (Late st Contact Info) Description 04/25/2018 Telephone [facility] Cardiology [address] [facility] Advanced Medicine 8th [place] [address] [place] [address] Mony Loyola MD [address] [facility] [address] [place] [address] Social History Tobacco Use Types Packs/Day Years Used Date Smoking Tobacco: Former Sex and Gender Information Value Date Recorded Sex Assigned at Not on file Legal Sex Male 1:55 PM HEALTH INFORMATION SPECIALIST Gender Identity Not on file Sexual Orientation Not on file documented as of this encounter Plan of Treatment Not on file documented as of this encounter Visit Diagnoses Not on filedocumented in this encounter Care Teams Industrial Garage Servicer Relationship Specialty Start Date End Date All Guerra MD [address] [place], [place] [id number] PCP - General 01/10/17 documented as of this encounter
--- OUTSIDE RECORDS SUMMARY | 2024-11-15 16:44 | XMS_ITS | Encounter Summary ---
Author Organization [facility] Address [address] [place] [address] Phone Care Team Providers Care Distance Education Director Name Role Phone All Guerra MD Primary Care Provider Encounter Details Date Type Department Care Team (Late st Contact Info) Description 04/16/[address] [facility] Cardiology [address] [facility] Advanced Medicine 8th [place] [address] [place] [address] Ashley Car, MPH Social History Tobacco Use Types Packs/Day Years Used Date Smoking Tobacco: Former Sex and Gender Information Value Date Recorded Sex Assigned at Not on file Legal Sex Male 1:55 PM PRODUCTION INTERN Gender Identity Not on file Sexual Orientation Not on file documented as of this encounter Plan of Treatment Not on file documented as of this encounter Visit Diagnoses Not on filedocumented in this encounter Care Teams Distance Education Director Relationship Specialty Start Date End Date All Guerra MD [address] [place], [place] [address] PCP - General 01/10/17 documented as of this encounter
--- NOTE | 2024-11-15 16:45 | PC.NURSE ---
ERP able to remove fishing hook without difficulty, patient tolerated procedure.
--- OUTSIDE RECORDS SUMMARY | 2024-11-15 16:45 | XMS_ITS | Continuity of Care Document ---
Author Organization [facility] Address [address] [facility] [address] [place] [address] Phone Care Team Providers Care Numerical Control Operator Name Role Phone Oleg MS, OTR/L, Farida JACKSON Unavailable Unavailable Procedures Procedure Date OT RE-EVALUATION THERAPEUTIC EXERCISES FUNC ACTIVITY HOT/COLD PACK THERAPEUTIC EXERCISES FUNC ACTIVITY OT EVALUATION THERAPEUTIC EXERCISES Advance Directives Directive Yes / No Effective Date File Name No Information Encounters Encounter Description Practice Location Reason(s) For Visit Diagnoses Date Provider Providers Copied on Encounter [facility] [address] [place] [address], [id number], tel:[phone] [place] No Information [address] [facility] [address], [place], [facility], . tel:[phone], [id number], tel:[phone] [place] No Information [address] [address] [facility] [address], [place], [facility], . tel:[phone] Referring Provider: Blas Loyola, [address], [address]. tel:[phone] [place], [place], [id number], tel:[phone] [place] No Information [address] [facility], [address], [facility], . tel:[phone] Referring Provider: Blas Loyola, [address] [employer] [address], [place], [address]. tel:[phone] [facility], [address] [facility] [address], [place], [place], [id number], tel:[phone] [place] Pain in joint involving hand [address] [facility] [address], [place], [address], . tel:[phone] Referring Provider: Blas Loyola, [address] [employer] [address], [place], [address]. tel:[phone] Family History Family Member Type Diagnosis Age At Onset No Information Payers Payer name Insurance type Covered green party ID Allyson barrios(s) Katharina [id number] Social History Type Description Quantity Date Captured [...]
--- OUTSIDE RECORDS SUMMARY | 2024-11-15 16:45 | XMS_ITS | Clinical Summary ---
Author Organization [facility] Care Team Providers Care Supervisor Files Name Role Phone Unavailable Primary Care Provider [...]
--- OUTSIDE RECORDS SUMMARY | 2024-11-15 16:45 | XMS_ITS | Encounter Summary ---
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
--- OUTSIDE RECORDS SUMMARY | 2024-11-15 16:45 | XMS_ITS | Encounter Summary ---
Author Organization [facility] Address [address] [place] [address] Phone Care Team Providers Care Acrobatic Rigger Name Role Phone All Guerra MD Primary Care Provider Encounter Details Date Type Department Care Team (Late st Contact Info) Description 11/06/2024 Results Follow-Up [facility] Cardiology [address] [facility] Advanced Medicine 8th [place] [address] [place] [address] Mony Ross, OLMAN [address] [facility] [address] [place] [address] ECG 12 lead Social History Tobacco Use 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
[2024-11-15] MEDS: NEOMYCIN/POLYMYXIN/BACITRACIN OINTMENT PACKET 1 PACKET TOPICAL (16:52)
[2024-11-15 16:54] VITALS: BP 122/73; PULSE 67; RESP 16; TEMP 36.6; O2SAT 98
== END 2024-11-15 16:54 | disposition home or self-care (01) ==
PROVIDERS: Emergency Provider Emergency Medicine; PCP Internal Medicine
DX: S61.241A Puncture wound with foreign body of left index finger without damage to nail, initial encounter (principal); W45.8XXA Other foreign body or object entering through skin, initial encounter; W26.8XXA Contact with other sharp object(s), not elsewhere classified, initial encounter
CPT/HCPCS: 10120; 99282

== ENCOUNTER 2025-03-08 13:48 | Emergency (ER) | payer BC, SELFPAY ==
--- OUTSIDE RECORDS SUMMARY | 2014-04-27 09:18 | XMS_ITS | Continuity of Care Document ---
Author Organization [facility] Address [address] [place] [address] Phone Care Team Providers Care Hot Die Press Operator Name Role Phone Oleg MS, OTR/L, Farida JACKSON Unavailable Unavailable Procedures Procedure Date OT RE-EVALUATION THERAPEUTIC EXERCISES FUNC ACTIVITY HOT/COLD PACK THERAPEUTIC EXERCISES FUNC ACTIVITY OT EVALUATION THERAPEUTIC EXERCISES Advance Directives Directive Yes / No Effective Date File Name No Information Encounters Encounter Description Practice Location Reason(s) For Visit Diagnoses Date Provider Providers Copied on Encounter [facility] [address] [place] [address], [id number], tel:[phone] Dawson No Information 4 Oleg Iqbal. [address] [facility], [facility] [address], [place], [facility], . tel:[phone], [id number], tel:[phone] [place] No Information 4 Oleg Iqbal. [address] [facility], [facility] [address], [place], [facility], . tel:[phone] Referring Provider: Blas Loyola, [address], [address]. tel:[phone] [place], [place], [id number], tel:[phone] Dawson No Information 4 Oleg Iqbal. [address] [facility], [address], [facility], . tel:[phone] Referring Provider: Blas Loyola, [address] [address], [place], [address]. tel:[phone] [facility], [address] [facility] [address], [place], [place], [id number], tel:[phone] Dawson Pain in joint involving hand 4 Oleg Iqbal. [address] [facility], [facility] [address], [place], [address], . tel:[phone] Referring Provider: Blas Loyola, [address] [address], [place], [address]. tel:[phone] Family History Family Member Type Diagnosis Age At Onset No Information Payers Payer name Insurance type Covered republican ID Allyson barrios(s) Katharina [id number] Social History Type Description Quantity Date Captured Comments Sex Male Smoking Status No Information Chief Complaint And Reason For Visit No Information Reason For Referral Reason For Referral No Information History Of Present Illness Encounter Date Complaint History Of Prese nt Illness No Information Functional Status Date Functional Assessmen t No Information Instructions Date Instruction Additional Infor mation No Information Assessments Type Assessment Date No Information Patient Care Teams Name Effective Dates (start - stop) Status Members No Information
[2025-03-08] VITALS (36 sets, daily range): BP systolic 104–150; BP diastolic 51–103; PULSE 64–96; RESP 12–24; TEMP 36.6; O2SAT 93–100
--- NOTE | ~2025-03-08 | XR_ITS ---
EXAMINATION: XR chest 1V portable COMPARISON: No comparisons available. HISTORY: Vomiting/ aspiration FINDINGS: The lungs are clear, no effusion. No pneumothorax. Heart is normal size. Mediastinal and hilar contours are within normal limits. Bony thorax no acute abnormality. Miscellaneous: None Impression: No acute cardiopulmonary abnormality. Reviewed, dictated and finalized at location A. Impression: No acute cardiopulmonary abnormality.
--- OUTSIDE RECORDS SUMMARY | 2025-03-08 13:51 | XMS_ITS | Encounter Summary ---
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
--- OUTSIDE RECORDS SUMMARY | 2025-03-08 13:51 | XMS_ITS | Clinical Summary ---
Author Organization [facility] al Address [address] [place] [address] Care Team Providers Care Chief Of Safety And Protection Name Role Phone All Guerra MD Primary Care Provider Allergies No known active allergies Medications pravastatin [...] (PROVENTIL HFA,VENTOLIN HFA,PROAIR HFA) 90 mcg/actuation inhaler 09/08/2024 Active Arnuity Ellipta 200 mcg/actuation inhaler 10/05/2024 Active Active Problems Problem Noted Date Diagnosed Date HLD (hyperlipidemia) 09/16/2021 Assessment & Plan (06/21/2022 8:22 AM PLASMA PROCESSING TECHNICIAN): -Continue statin Assessment & Plan (09/18/2021 [...] 3 hours -Not on oral anticoagulation - [id number] score 0 -Continue metoprolol tartrate 50 mg BID Assessment & Plan (01/11/2024 1:28 PM CDT): Paroxysmal atrial fibrillation s/p PVI ablation 2022 Recent palpitations have subsided. SR today. If arrhythmias recur, will obtain event monitor Stop Eliquis - [id number] score 0 Continue metoprolol 50 mg BID Follow up in 6 months, sooner as needed Assessment & Plan (10/31/2022 10:08 AM CDT): Paroxysmal atrial fibrillation s/p PVI ablation 2022 He had limited early AF recurrence, no AF in the past several months Stop dofetilide Continue metoprolol 50 mg BID No longer on oral anticoagulation - [id number] score 0 He has samples of Eliquis to take if he has a prolonged episode of AF Encouraged him to limit alcohol intake Continue regular exercise Follow up in 6 months, sooner as needed Assessment & Plan (07/20/2022 4:10 PM PLASMA PROCESSING TECHNICIAN): Paroxysmal atrial fibrillation s/p PVI ablation [...] needed Assessment & Plan (06/21/2022 8:22 AM PLASMA PROCESSING TECHNICIAN): S/p AFib ablation on 06/20. Feels 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 PLASMA PROCESSING TECHNICIAN Gender Identity Not on file Sexual Orientation Not on file Obstetrics History Last Filed Vital Signs Vital Sign Reading Time Taken Comments Blood Pressure 131/79 11/06/2024 8:55 AM CDT Pulse 55 11/06/2024 8:55 AM CDT Temperature 36.5 C (97.7 F) 06/21/2022 4:25 AM PLASMA PROCESSING TECHNICIAN Respiratory Rate 15 06/21/2022 4:25 AM PLASMA PROCESSING TECHNICIAN Oxygen Saturation 99% 11/06/2024 8:55 AM [...] Pneumococcal vaccine <65 (2 of 2 - PPSV23, PCV20, or PCV21) 07/12/2018 05/17/2018 Zoster Vaccine (2 of 2) 11/18/2019 09/23/2019 DTaP/Tdap/Td Vaccine (2 - Td or Tdap) 04/02/2021 04/02/2011 Influenza Vaccine (#1) 2025 , 06/13/2019, 02/14/2017, Additional history exists Medical Devices Implanted Type Area Agricultural Education Instructor Device Identifier Shelf Expiration Date Model / Serial / Lot [employer] Vascade Mvp 6-12fr Venous Closure [id number] - [id number] - [id number] Implanted:Qty : 1 on 2022 by Garfield Mcdonald MD PhD at [facility] Collagen Right: Groin [employer] 02/24/2024 800-612C-1 [id number] / [id number] [id number] / [id number] [employer] Vascade Mvp 6-12fr Venous Closure [id number] - [id number] - [id number] Implanted:Qty : 1 on 2022 by Garfield Mcdonald MD PhD at [facility] Collagen Left: Groin [employer] 02/24/2024 800-612C-1 [id number] / [id number] / [id number] [employer] Device Closure Vascade Od5 Fr Femoral Artery [id number] - [id number] - [id number] Implanted:Qty : 1 on 2022 by Garfield Mcdonald MD PhD at [facility] Collagen Left: Groin [employer] 04/03/2024 [id number] / [id number] / [id number] [employer] Vascade Mvp 6-12fr Venous Closure [id number] - [id number] - [id number] Implanted:Qty : 1 on 2022 by Garfield Mcdonald MD PhD at [facility] Collagen Left: [employer] 02/16/2024 800-612C-1 [id number] / [id number] 1A / [id number] Insurance [place] CHO[place] Advance Directives For more information, please contact: [phone] * Full Code (Latest Code Status on File) Date Activated Date Inactivated Comments 09/16/2021 5:25 PM 09/19/2021 7:31 PM Care Teams Chief Of Safety And Protection Relationship Specialty Start Date End Date All Guerra MD [address] [place] [address] PCP - General 01/10/17
--- OUTSIDE RECORDS SUMMARY | 2025-03-08 13:51 | XMS_ITS | Encounter Summary ---
Author Organization [facility] Address [address] [place] [address] Phone Care Team Providers Care Dining Room Manager Name Role Phone All Guerra MD Primary Care Provider [phone] Encounter Details Date Type Department Care Team (Late st Contact Info) Description 04/16/2018 Telephone [facility] Cardiology [address] [facility] [address] Advanced Medicine 8th [place] [address] [place] [address] Ashley Car, MPH Social History Tobacco Use Types Packs/Day Years Used Date Smoking Tobacco: Former Sex and Gender Information Value Date Recorded Sex Assigned at Not on file 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
--- OUTSIDE RECORDS SUMMARY | 2025-03-08 13:51 | XMS_ITS | Encounter Summary ---
Author Organization [facility] Address [address] [place] [address] Phone Care Team Providers Care Control Board Operator Name Role Phone All Guerra MD Primary Care Provider [phone] Encounter Details Date Type Department Care Team (Late st Contact Info) Description 04/25/[address] [facility] Cardiology [address] 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
--- OUTSIDE RECORDS SUMMARY | 2025-03-08 13:51 | XMS_ITS | Clinical Summary ---
Author Organization [facility] Address [facility] [place] [address] Care Team Providers Care Site Damage Prevention Technician Name Role Phone Unavailable Primary Care [...] Td Vaccines ( 1 - Tdap) 1982 Pneumococcal Vaccine: 50+ Ye ars (1 of 1 - PCV) 2013 Zoster Vaccines (1 of 2) 2013 COVID-19 Vaccine (1 - 2023-2 5 season) 2025 RSV Immunization or 60+ Years (1 - [...]
--- OUTSIDE RECORDS SUMMARY | 2025-03-08 13:51 | XMS_ITS | Clinical Summary ---
Author Organization [facility] Care Team Providers Care Pencil Maker Name Role Phone Unavailable Primary Care Provider [...] Virus (HCV) Screening 1963 TdaP Immunization 1963 Cologuard 2008 Colonoscopy 2008 Colorectal Cancer Screening 2008 Immunochemical Fecal Occult Blood 2008 Pneumococcal Immunization (5 0+ years) (1 of 1 - PCV) 2013 Zoster Immunization (1 of 2) 2013 SARS-COV-2 Immunization ( - 2023- season) 2024 Influenza Immunization (#1) 2025 Respiratory Syncytial Virus (RSV) Immunization (Adult) (1 - 1-dose 75+ series) 2038 Hepatitis B Immunization Aged Out No longer eligible based on patient's age to complete this topic Human Papillomavirus (HPV) Immunization Aged Out No longer eligible b ased on patient's age to complete this topic Meningococcal Immunization (ACWY) Aged Out No longer eligible based on patient's age to complete this topic Rotavirus Immunization Aged Out No lo nger eligible based on patient's age to complete this topic
--- NOTE | 2025-03-08 13:57 | ED_ITS ---
HPI - Nausea/Vomiting/Diarrhea General Chief complaint: Nausea/Vomiting/Diarrhea Stated complaint: vomiting, dizzy, got chills Time Seen by Provider: 03/08/25 13:57 Source: patient Mode of arrival: ambulatory Limitations: no limitations History of Present Illness HPI Narrative: 59-year-old male with a history of smoking alcohol use, ulcerative colitis, asthma presents to the ED with a 1 hour history of -- generalized shakes. No fever. -- Nausea with 4 episodes of vomiting. No hematemesis. No fever. Abdominal pain. No diarrhea. -- Patient had at a couple of beers last night. He stated that he does not drink on a daily basis. He drinks once a week. MD elicited complaint: nausea and vomiting Pertinent past history: anorexia Onset (ago): hour(s) ( 1 hour) Description of vomiting: watery Associated nausea: Yes Associated abdominal pain: No Location of pain: none Associated symptoms: fever/chills ( patient has chills without any fever) Related Data Home Medications ?Medication ?Instructions ?Recorded ?Confirmed ?Last Taken ?Type apixaban 5 mg tablet (Eliquis) 5 mg PO BID 01/09/2401/11/24 History metoprolol tartrate 50 mg tablet 50 mg PO BID 01/09/24 01/24/24 01/24/24 History (Lopressor) Allergies Allergy/AdvReac Type Severity Reaction Status Date / Time No Known Allergies Allergy Verified 03/08/25 13:56 Review of Systems 2 Review of Systems: All systems reviewed & are unremarkable except as noted in HPI and below Constitutional: Constitutional: Reports as per HPI and Reports no additional constitutional complaints Eyes: Eyes: Reports as per HPI and Reports no additional eye complaints ENT: Reports system reviewed and no additional complaints, except as documented and Reports as per HPI Cardiovascular: Cardiovascular: Reports as per HPI and Reports no additional cardiovascular complaints Respiratory: Respiratory: Reports as per HPI and Reports no additional respiratory complaints Gastrointestinal: Gastrointestinal: Reports as per HPI, Reports no additional gastrointestinal complaints, Reports nausea and Reports vomiting Genitourinary: Genitourinary: Reports no additional male genitourinary complaints and Reports as per HPI Musculoskeletal: Musculoskeletal: Reports no additional musculoskeletal complaints and Reports as per HPI Integumentary/Breasts: Skin/Breast: Reports system reviewed and no additional complaints, except as docu and Reports as per HPI Neurologic: Reports system reviewed and no additional complaints, except as documented and Reports as per HPI Psychiatric: Psychiatric: Reports no additional psychiatric complaints and Reports as per HPI Endocrine: Endocrine: Reports no additional endocrine complaints and Reports as per HPI Hematologic/Lymphatic: Hematologic/Lymphatic: Reports no additional hematologic/lymphatic complaints and Reports as per HPI Allergic/Immunologic: Allergic/Immunologic: Reports no additional allergic/immunologic complaints and Reports as per HPI [facility] Past Medical History Medical History Chronic atrial fibrillation, unspecified Seasonal allergies Suspected sleep apnea History of carpal tunnel syndrome Asthma Surgical History Surgical History History of carpal tunnel surgery Social History Social History Smoking packs per day: 0.5 Smoking cigarettes per day: 10.0 Years smoked: 16 Smoking pack-years: 8.00 Smoking status: Former smoker Tobacco type: cigarettes Smoking end date: 06/25/09 Alcohol intake: current Drinks per week: 5 Alcohol use details: BEERS Substance use: never Substance use type: does not use Living arrangements: with family Spiritual care concerns: No Exam 2 Narrative: afebrile Const: General: ill appearing Nutritional Appearance: well nourished O rientation/consciousness: patient oriented x3 Limitations: no limitations HENMT: Head: normal to inspection Ears: external ears normal F long/Nose/Sinus: Normal external nose present Face and sinus: normal facial exam Mouth: Yes Normal oral and palatal mucosa present Throat: posterior oropharynx normal Eyes: Conjunctivae: conjunctivae normal Cornea: corneas normal Pupils: E qual, round and reactive pupils present EOM: EOMs intact bilaterally D irect Ophthalmoscopy: no photophobia Neck: Neck: normal visual inspection, no lymphadenopathy and no meningeal signs Chest: Chest palpation & inspection: normal inspection of the chest Resp: Effort & Inspection: normal respiratory effort Auscultation: clear to auscultation bilaterally Cardio: Rate: regular rate Rhythm: regular rhythm GI: GI Palp: Yes Soft to palpation Auscultation: normal bowel sounds O ther: No tenderness/rigidity / rebound. : General: Yes no CVA tenderness Back/Spine/Pelvis: Back: no CVA tenderness Skin: General skin exam: normal color Rashes: no rashes Neuro: General: patient oriented x3, moves all extremities, no meningeal signs, no focal motor deficits and CN's II-XI intact bilaterally Cranial nerves: Yes Nystagmus not present Speech: normal speech Extrem: General: normal to inspection and no clubbing, cyanosis or edema Psych: Mental Status: mental status grossly normal Affect: normal affect Attitude: cooperative Course Course Emergency Course: Gastritis nausea and vomiting alcohol use While in the ED the patient was shaking. Recheck the temperature and the patient is afebrile. Could be secondary to alcohol withdrawal but his daughter states that he does not drink on a regular basis. Blood work revealed a serum sodium of 120. Daughter stated that he has been drinking large amounts of water anion gap metabolic acidosis without any osmolal gap. Vital Signs Vital signs: Vital Signs Temperature 36.6 C 03/08/25 13:48 Pulse Rate 64 03/08/25 13:48 Respiratory Rate 18 03/08/25 13:48 Blood Pressure 138/93 H 03/08/25 13:48 Pulse Oximetry 100 03/08/25 13:48 Oxygen Delivery Room Air 03/08/25 13:48 Temperature 36.6 C 03/08/25 14:46 Pulse Rate 80 03/08/25 17:46 Respiratory Rate 19 03/08/25 17:46 Blood Pressure 127/51 L 03/08/25 17:46 Pulse Oximetry 98 03/08/25 17:46 Oxygen Delivery Room Air 03/08/25 17:46 MDM - Nausea/Vomiting/Diarrhea MDM Narrative Medical decision making narrative: gastritis anion gap metabolic acidosis- patient had a normal lactate, salicylate level, acetaminophen level, renal function and blood sugars. This could be secondary to alcoholic ketoacidosis. hyponatremia Differential Diagnosis Differential diagnosis: Likely gastroenteritis Medical Records Attestation: I reviewed the patient's medical records. Lab Data Attestation: I reviewed the patient's lab results. 03/08/25 14:13 03/08/25 14:13 Labs: Lab Results 03/08/25 03/08/25 03/08/25 Range/Units 14:08 14:13 15:42 WBC 8.0 (4.8-10.8) K/mm3 RBC 3.94 L (4.70-6.10) M/mm3 Hgb 13.2 L (14.0-18.0) g/dL Hct 35.7 L (40.0-54.0) % MCV 90.6 (78.0-102.0) fL MCH 33.5 H (27.0-31.0) pg MCHC 37.0 H (32-36) g/dL RDW 11.8 (11.6-14.4) % Plt Count 295 (150-420) K/mm3 MPV 8.1 L (8.7-11.0) fl Immature Gran % (Auto) 0.5 H (0.0-0.0) % Neut % (Auto) 82.2 H (50.0-70.0) % Lymph % (Auto) 10.0 L (18.0-42.0) % Calloway % (Auto) 6.7 (2.0-11.0) % Eos % (Auto) 0.2 L (1.0-6.0) % Baso % (Auto) 0.4 (0.0-1.0) % Lymph # (Auto) 0.80 L (1.10-4.50) K/mm3 Calloway # (Auto) 0.54 (0.10-0.90) K/mm3 Eos # (Auto) 0.02 (0.02-0.50) K/mm3 Baso # (Auto) 0.03 (0.00-0.10) K/mm3 Abs Immat Gran (auto) 0.04 H (0.00-0.00) K/mm3 Absolute Neuts (auto) 6.60 (1.70-7.20) K/mm3 Absolute Nucleated RBC 0.00 (0.00-0.00) K/mm3 Nucleated RBC % 0.0 (0-0.0) % PT 10.6 (9.50-12.1) Seconds INR 1.0 Sodium 120 L (137-145) mmol/L Potassium 4.2 (3.4-5.0) mmol/L Chloride 84 L (98-107) mmol/L Carbon Dioxide 16 L (22-30) mmol/L Anion Gap 20 H (4-12) mmol/L BUN 11 (9-20) mg/dL Creatinine 0.66 L (0.7-1.3) mg/dL Estim Creat Clear Calc 91 ml/min Estimated GFR > 60 (59 - ) Glucose 102 (65-110) mg/dL Calculated Osmolality 249 L (285-295) mOsm/kg Lactic Acid 1.8 (0.4-2.0) mmol/L Calcium 9.4 (8.4-10.2) mg/dL Total Bilirubin 1.7 H (0.2-1.3) mg/dL AST 42 (17-59) U/L ALT 28 (6-50) U/L Alkaline Phosphatase 72 (38-126) U/L Total Creatine Kinase 259 H (55-170) U/L Troponin I < 0.012 (0.000-0.034) ng/mL Total Protein 9.2 H (6.3-8.2) g/dL Albumin 5.0 (3.5-5.1) g/dL Lipase 131 (23-300) U/L TSH 0.502 (0.465-4.680) uIU/mL Urine Color Light yellow (Yellow) Urine Appearance Clear (Clear) Urine pH 7.5 (5.0-8.0) Ur Specific Otis 1.010 (1.010-1.020) Urine Protein Trace H (Negative) Urine Glucose (UA) Negative (Negative) Urine Ketones 3+ H (Negative) Ur Blood (Man) Negative (Negative) Urine Nitrate Negative (Negative) Urine Bilirubin Negative (Negative) Urine Urobilinogen 0.2 (0.2-1.0) mg/dL Leukocyte Esterase Rfl Negative (Negative) DESTIN/UL Urine RBC None seen (0-2) /hpf Urine WBC None seen (0-3) /hpf Ur Squamous Epith Cells Rare (Few) /hpf Urine Bacteria Trace (None) /hpf Salicylates < 1.0 L (2-20) mg/dL Urine Opiates Screen Negative (Negative) Urine Methadone Screen Negative (Negative) Acetaminophen < 10 L (10-30) ug/mL Ur Barbiturates Screen Negative (Negative) Ur Phencyclidine Scrn Negative (Negative) Ur Amphetamine Screen Negative (Negative) U Benzodiazepines Scrn Positive A (Negative) Urine Cocaine Screen Negative (Negative) U Cannabinoids Screen Negative (Negative) Ethyl Alcohol < 10 (<10) mg/dL ECG Data EKG #1: ECG completion date: 03/08/25 ECG completion time: 15:19 Interpretation: normal sinus axis no ST-wave changes noted. Discharge Plan Discharge Clinical Impression: Metabolic acidosis, Hyponatremia Gastritis Qualifiers: Gastritis type: unspecified gastritis Chronicity: acute Gastritis bleeding: w ithout bleeding Qualified Code(s): K29.00 - Acute gastritis without bleeding Patient Disposition: Still a Patient Condition: Stable Additional Instructions: transfer [facility] to [facility]. Patient has been accepted by Patient Language: Persian Prescriptions: No Action Eliquis 5 mg Tablet 5 mg PO BID metoprolol tartrate [Lopressor] 50 mg tablet 50 mg PO BID Follow-up/Referrals: All Guerra MD [Primary Care Provider, Internal Medicine] Time of Disposition: 18:01
[2025-03-08] MEDS: LACTATED RINGERS 1,000 ML 999 ML IV CONT (14:16)
[2025-03-08 14:18] LABS: Hematocrit 35.7 % (40.0-54.0); Hemoglobin 13.2 g/dL (14.0-18.0); Immature Granulocyte Percent A 0.5 % (0.0-0.0); Lymphocytes Absolute Auto 0.80 K/mm3 (1.10-4.50); Mean Corpuscular HGB Conc 37.0 g/dL (32-36); Mean Corpuscular Hemoglobin 33.5 pg (27.0-31.0); Mean Corpuscular Volume 90.6 fL (78.0-102.0); Nucleated Red Blood Cells Absolute Auto 0.00 K/mm3 (0.00-0.00); Nucleated Red Blood Cells Perc 0.0 % (0-0.0); Platelet Count Result 295 K/mm3 (150-420); Red Blood Count 3.94 M/mm3 (4.70-6.10); White Blood Count 8.0 K/mm3 (4.8-10.8)
[2025-03-08 14:27] LABS: Lipase 131 U/L (23-300)
[2025-03-08] MEDS: PROCHLORPERAZINE EDISYLATE 10 MG/2 ML VIAL IV PUSH (14:27)
[2025-03-08 14:28] LABS: Alanine Aminotransferase 28 U/L (6-50); Albumin Level 5.0 g/dL (3.5-5.1); Alkaline Phosphatase 72 U/L (38-126); Anion Gap 20 mmol/L (4-12); Aspartate Amino Transferase 42 U/L (17-59); Bilirubin,Total 1.7 mg/dL (0.2-1.3); Blood Urea Nitrogen 11 mg/dL (9-20); Calcium 9.4 mg/dL (8.4-10.2); Carbon Dioxide 16 mmol/L (22-30); Chloride 84 mmol/L (98-107); Estimated CRCL calculation 91 ml/min; Estimated Glomerular Filt Rate > 60; Glucose 102 mg/dL (65-110); Osmolality Calculated 249 mOsm/kg (285-295); Potassium 4.2 mmol/L (3.4-5.0); Sodium 120 mmol/L (137-145); Total Protein 9.2 g/dL (6.3-8.2)
[2025-03-08 14:29] LABS: INR 1.0; Prothrombin Time 10.6 Seconds (9.50-12.1)
[2025-03-08 14:40] LABS: Troponin I < 0.012 ng/mL (0.000-0.034)
[2025-03-08] MEDS: MIDAZOLAM HCL (*CRX) 2 MG/2 ML VIAL IV PUSH (14:49)
--- NOTE | 2025-03-08 14:54 | ECG_ITS ---
Test Date: 2025-03-08 15:19:32 Measurements Intervals Zearing Rate: 71 P: 72 MD: 203 QRS: 52 QRSD: 108 T: 52 QT: 416 QTc: 453 Interpretive Statements SINUS RHYTHM POSSIBLE RIGHT VENTRICULAR CONDUCTION DELAY [RSR (QR) IN V1/V2] ABNORMAL ECG No previous ECG available for comparison Electronically Signed On 03-09-2025 07:52:44 CDT by Gerber Fernando M.D.
[2025-03-08] MEDS: PANTOPRAZOLE SODIUM IV 40 MG VIAL IV PUSH (15:19)
[2025-03-08 15:26] LABS: Acetaminophen < 10 ug/mL (10-30); Salicylate < 1.0 mg/dL (2-20)
[2025-03-08 15:27] LABS: Creatine Kinase 259 U/L (55-170)
[2025-03-08] MEDS: THIAMINE HCL 200 MG/2 ML VIAL 100 MG IV PUSH (15:27)
[2025-03-08 15:37] LABS: Thyroid Stimulating Hormone 0.502 uIU/mL (0.465-4.680)
[2025-03-08 15:46] LABS: Add Urine Microscopic? YES; Appearance Urine Clear (Clear); Glucose Urine UA Negative (Negative); Leukocyte Esterase Ur Negative LEU/UL (Negative); Nitrate Urine Negative (Negative); Specific Grav Ur 1.010 (1.010-1.020)
[2025-03-08 16:05] LABS: Cannabinoid Screen Urine Negative (Negative)
== END 2025-03-08 18:42 | disposition short-term general hospital (02) ==
PROVIDERS: Emergency Provider Internal Medicine Critical Care Medicine; PCP Internal Medicine
DX: E87.20 Acidosis, unspecified (principal); E87.1 Hypo-osmolality and hyponatremia; K29.00 Acute gastritis without bleeding; I48.20 Chronic atrial fibrillation, unspecified; J45.909 Unspecified asthma, uncomplicated; Z87.891 Personal history of nicotine dependence
CPT/HCPCS: 36415; 71045; 80053; 80143; 80179; 80307; 81001; 82077; 82550; 83605; 83690; 84443; 84484; 85025; 85610; 93005; 96361; 96374; 96375; 99284; 99285; J0780; J2250; J2470; J3411; J7120

== ENCOUNTER 2025-03-08 20:41 | Inpatient (IN) | payer BC, SELFPAY ==
[2025-03-08 19:38] VITALS: BMI 25.7
--- NOTE | 2025-03-08 19:39 | ADMGEN ---
This patient, José Luis Wright, was admitted to Medical Room 340-01. Patient/family oriented to hospital policies and general routines including ID bracelet, bed and alarms, visiting hours, pain management, procedures, bathroom and other care routines, personal items, smoking policy, room service/diet, and visiting hours. Information on how to activate the Rapid Response Team has been discussed. Patient/Family are encouraged to report perceived risks to care and to ask questions if they do not understand what they are told or what they should do.
--- OUTSIDE RECORDS SUMMARY | 2025-03-08 20:46 | XMS_ITS | Encounter Summary ---
Author Organization [facility] Address [address] [place] [address] Phone Care Team Providers Care Supervisor Shuttle Veneering Name Role Phone All Guerra MD Primary Care Provider [phone] Encounter Details Date Type Department Care Team (Late st Contact Info) Description 04/25/2018 Telephone [facility] [address] [facility] Advanced Medicine 8th [place] [address] [place] [address] Mony Loyola MD [address] [place] [address] Social History Tobacco Use Types Packs/Day Years Used Date Smoking Tobacco: Former Sex and Gender Information Value Date Recorded Sex Assigned at Not on file Legal Sex Male 1:55 PM 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
--- OUTSIDE RECORDS SUMMARY | 2025-03-08 20:46 | XMS_ITS | Clinical Summary ---
Author Organization [facility] Address [facility] [place] [address] Care Team Providers Care Merchandise Director Name Role Phone Unavailable Primary Care Provider [...]
--- OUTSIDE RECORDS SUMMARY | 2025-03-08 20:46 | XMS_ITS | Clinical Summary ---
Author Organization [facility] al Address [address] [place] [address] Care Team Providers Care Manager Shell Name Role Phone All Guerra MD Primary Care Provider [phone] Allergies No known active allergies Medications pravastatin [...] 09/16/2021 Assessment & Plan (06/21/2022 8:22 AM PRICING ASSOCIATE): -Continue statin Assessment & Plan (09/18/2021 10:28 [...] 3 hours -Not on oral anticoagulation - [id number] score 0 -Continue metoprolol tartrate 50 mg BID Assessment & Plan (01/11/2024 1:28 PM CDT): Paroxysmal atrial fibrillation s/p PVI ablation 2022 Recent palpitations have subsided. SR today. If arrhythmias recur, will obtain event monitor Stop Eliquis - [id number] score 0 Continue metoprolol 50 mg BID Follow up in 6 months, sooner as needed Assessment & Plan (10/31/2022 10:08 AM CDT): Paroxysmal atrial fibrillation s/p PVI ablation 2022 He had limited early AF recurrence, no AF in the past several months Stop dofetilide Continue metoprolol 50 mg BID No longer on oral anticoagulation - [id number] score 0 He has samples of Eliquis to take if he has a prolonged episode of AF Encouraged him to limit alcohol intake Continue regular exercise Follow up in 6 months, sooner as needed Assessment & Plan (07/20/2022 4:10 PM PRICING ASSOCIATE): Paroxysmal atrial fibrillation s/p PVI ablation 2022 [...] needed Assessment & Plan (06/21/2022 8:22 AM PRICING ASSOCIATE): S/p AFib ablation on 06/20. Feels well. 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 PRICING ASSOCIATE Gender Identity Not on file Sexual Orientation Not on file Obstetrics History Last Filed Vital Signs Vital Sign Reading Time Taken Comments Blood Pressure 131/79 11/06/2024 8:55 AM CDT Pulse 55 11/06/2024 8:55 AM CDT Temperature 36.5 C (97.7 F) 06/21/2022 4:25 AM PRICING ASSOCIATE Respiratory Rate 15 06/21/2022 4:25 AM PRICING ASSOCIATE Oxygen Saturation 99% 11/06/2024 8:55 AM CDT [...] history exists Medical Devices Implanted Type Area Elevator Service Technician Device Identifier Shelf Expiration Date Model / Serial / Lot [employer] Vascade Mvp 6-12fr Venous Closure [id number] - [id number] - [id number] Implanted:Qty : 1 on 2022 by Garfield Mcdonald MD PhD at [facility] Collagen Right: Groin [employer] 02/24/2024 800-612C-1 [id number] / [id number] / [id number] [employer] Vascade Mvp 6-12fr Venous Closure [id number] - [id number] - [id number] Implanted:Qty : 1 on 2022 by Garfield Mcdonald MD PhD at [facility] Collagen Left: Groin [employer] 02/24/2024 800-612C-1 0U / [id number] / [id number] [employer] Device Closure Vascade Od5 Fr Femoral Artery [id number] - [id number] - [id number] Implanted:Qty : 1 on 2022 by Garfield Mcdonald MD PhD at [facility] Collagen Left: Groin [employer] 04/03/2024 [id number] / [id number] / [id number] [employer] Vascade Mvp 6-12fr Venous Closure [id number] - [id number] - [id number] Implanted:Qty : 1 on 2022 by Garfield Mcdonald MD PhD at [facility] Collagen Left: [employer] 02/16/2024 800-612C-1 [id number] / [id number] / [id number] [place] [employer] [place] For more information, please contact: [phone] * Full Code (Latest Code Status on File) Date Activated Date Inactivated Comments 09/16/2021 5:25 PM 09/19/2021 7:31 PM Care Teams Manager Shell Relationship Specialty Start Date End Date All Guerra MD [address] [place] [address] PCP - General 01/10/17
--- OUTSIDE RECORDS SUMMARY | 2025-03-08 20:46 | XMS_ITS | Clinical Summary ---
Author Organization [facility] Care Team Providers Care Collection Systems Modeler Name Role Phone Unavailable Primary Care Provider [...]
--- OUTSIDE RECORDS SUMMARY | 2025-03-08 20:46 | XMS_ITS | Encounter Summary ---
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
--- OUTSIDE RECORDS SUMMARY | 2025-03-08 20:46 | XMS_ITS | Encounter Summary ---
Author Organization [facility] Address [address] [place] [address] Phone Care Team Providers Care Medical Communication Specialist Name Role Phone All Guerra MD Primary Care Provider Encounter Details Date Type Department Care Team (Late st Contact Info) Description 04/16/2018 Telephone [facility] Cardiology [address] [facility] Advanced Medicine 8th [place] [address] [place] [address] Ashley Car, MPH Social History Tobacco Use Types Packs/Day Years Used Date Smoking Tobacco: Former Sex and Gender Information Value Date Recorded Sex Assigned at Not on file 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
[2025-03-08] MEDS: METOPROLOL TARTRATE 50 MG TAB PO (21:12)
--- NOTE | 2025-03-08 21:22 | PM.IMHP ---
H&P: HPI History of Present Illness Date/Time: 03/08/25 21:22 Chief Complaint: Chills and vomiting that started this afternoon Narrative: 59-year-old male with a past medical history of tobacco use, ulcerative colitis, asthma, essential hypertension and mild hyponatremia who presented to [place] ER due to chills and vomiting that started this afternoon. The patient usually only drinks a 6 pack of beer once a week last night was at his daughter's wedding and drink a significant amount of alcohol. He states he drinks so much today cannot stay exactly how much he did drink. He reported he woke hung over and was having multiple episodes of vomiting. His emesis was clear. He reported that after it had several episodes of vomiting he began having some shakes and cold sweats. His symptoms lasted for about an hour. Did resolve by the time he arrived to the outside ER. His labs at the outside ER demonstrated sodium of 120. He had a history of prior episodes of hyponatremia which resolved in the past after drinking Pedialyte. He reports that he is still occasionally drinking some electrolyte supplements but has not consistently done so recently. He reports that he drinks 5-6 bottles of water a day. He denies any recent weight loss or respiratory symptoms. He reports usual amount of urine output. Labs at the outside also demonstrated ketones in his urine low chloride and low serum bicarb. He received 1 L of LR. And was transferred [facility] facility for further care. Review of Systems Review of Systems: 12 systems were reviewed with pertinent positives and negatives per HPI. Except as documented in the HPI, all other systems were reviewed and are negative. [facility] Past Medical History Medical History (Updated 03/09/25 @ 03:35 by Camille Sanchez DO) Paroxysmal atrial fibrillation (2021) Seasonal allergies Suspected sleep apnea Asthma Surgical History Surgical History History of carpal tunnel surgery Family History Family History Sibling Chronic obstructive pulmonary disease Congestive heart failure Grandparent Congestive heart failure Mother Hypertension Social History Social History (Updated 03/09/25 @ 03:40 by Camille Sanchez DO) Social History: Code status: Full code Surrogate decision maker: Sharmin (daughter) Smoking packs per day: 0.5 Smoking cigarettes per day: 10.0 Years smoked: 20 Smoking pack-years: 10.00 Smoking status: Former smoker Tobacco type: cigarettes Smoking end date: 06/25/09 Alcohol intake: current Drinks per week: 8 Alcohol use details: 6-8 beers once a week Substance use: never Substance use type: does not use Lack of Transportation: No Lack of Food: Never True Current Housing: I Have Housing Concerned About Future Housing: No Difficulty Paying Gas/Electric Bills: No Difficulty Paying for Meds: No Currently Unemployed: No Education: Trade/Vocational Certificate Difficulty w/ Childcare or Family Care: No Living arrangements: alone Additional living arrangements comments: He is . He has 3 daughters. Occupation/Education: occupation Additional occupation/education comments: Works at [email or web address]. Spiritual care concerns: No Meds Home Medications and Allergies Home Medications ?Medication ?Instructions ?Recorded ?Confirmed ?Type metoprolol tartrate 50 mg tablet 50 mg PO BID 01/09/24 03/08/25 History (Lopressor) alprazolam 0.25 mg tablet 0.25 mg PO DAILY 03/08/25 03/08/25 History cetirizine 10 mg capsule (All Day 10 mg PO DAILY 03/08/25 03/08/25 History Allergy (cetirizine)) fluticasone furoate 200 1 inh inhalation Q24H 03/08/25 03/08/25 History mcg/actuation blister powder for inhalation (Arnuity Ellipta) Allergies Allergy/AdvReac Type Severity Reaction Status Date / Time No Known Allergies Allergy Verified 03/08/25 13:56 Vital Signs Vital Signs - 24 hr 03/08/25 19:54 Oxygen Delivery Room Air Exam Narrative: Weight 73.5 kg BMI 26.2 Const: Other: No acute distress, well-developed well-nourished, appears younger than stated age HENMT: Other: Mucous membranes are tacky, no oral pharyngeal erythema Eyes: Other: Pupils are equal and reactive, no scleral icterus, no conjunctival pallor Neck: Other: No JVD, no lymphadenopathy Resp: Other: Clear to auscultation bilaterally, no increased work of breathing Cardio: Other: Regular rate, regular rhythm, 2+ bilateral radial pedal pulses GI: Other: Soft, nontender, nondistended, positive bowel sounds Skin: Other: Tanned, non jaundice, no pallor Neuro: Other: Alert orient x4, speech is clear, no facial asymmetry, lung localizing neurologic deficits Extrem: Other: No clubbing, cyanosis or edema Psych: Other: Appropriate mood and affect, pleasant and and cooperative, judgment and insight intact H&P: Results Labs Labs: Labs from outside facility: CBC: WBC 8.0 hemoglobin 13.2 platelet count 295 neutrophils 82% Coag: PT is 10.6 INR 1 CMP: Sodium 120 potassium 4.2 chloride 84 bicarb 16 anion gap 20 creatinine 0.6 glucose 102 lactic acid 1.8 calcium 9.4 bilirubin 1.7 AST 41 ALT 28 alk-phos 72 total protein 9.2 albumin 5 CK 259 troponin less than 0.012 Lactic acid 1.8 Chest x-ray: No acute cardiopulmonary process. Personally reviewed and interpreted TSH normal EKG: Normal sinus rhythm rate 71 QTC 453 Laboratory Tests 03/09/25 01:47 03/08/25 03/08/25 03/09/25 21:00 21:10 01:47 Sodium 118 L* 118 L* Potassium 4.2 3.5 Chloride 87 L 89 L Carbon Dioxide 21 L 23 Anion Gap 10 6 BUN 11 11 Creatinine 0.67 L 0.67 L Estim Creat Clear Calc Not Reportable 90 Estimated GFR > 60 > 60 Glucose 130 H 93 Calcium 8.6 8.2 L Phosphorus 3.5 Magnesium 1.6 Ur Random Sodium Urine Creatinine Influenza A (RT-PCR) Negative Influenza B (RT-PCR) Negative RSV (RT-PCR) Negative SARS-CoV-2 RNA (RT-PCR) Negative 03/09/25 03:44 Sodium Potassium Chloride Carbon Dioxide Anion Gap BUN Creatinine Estim Creat Clear Calc Estimated GFR Glucose Calcium Phosphorus Magnesium Ur Random Sodium Pending Urine Creatinine Pending Influenza A (RT-PCR) Influenza B (RT-PCR) RSV (RT-PCR) SARS-CoV-2 RNA (RT-PCR) Assessment and Plan Assessment and plan (1) Acute hyponatremia: Code(s): E87.1 - Hypo-osmolality and hyponatremia Status: Acute (2) Nausea & vomiting: Qualifiers: Vomiting type: unspecified Qualified Code(s): R11.2 - Nausea with vomiting, unspecified Code(s): R11.2 - Nausea with vomiting, unspecified Status: Acute (3) Elevated serum protein level: Code(s): R77.9 - Abnormality of plasma protein, unspecified Status: Acute (4) Ketonuria: Code(s): R82.4 - Acetonuria Status: Acute (5) Metabolic acidosis: Code(s): E87.20 - Acidosis, unspecified Status: Inactive Plan Patient has acute hyponatremia. Patient does have a distant history of prior hyponatremia. Patient did in by quite heavily and alcohol and had nausea vomiting. Clinically symptoms are more suspicious of volume depletion given elevated urine ketones and elevated serum protein as well as metabolic acidosis on labs. The patient likely had some volume depletion and alcohol ketosis. However after receiving 1 L fluids at the outside ER the patient's sodium dropped further suggesting some component of SIADH or excessive free water intake. He denies any excessive free water intake. Initially the patient on a fluid restriction but patient's sodium was unchanged. I did give the patient a dose of oral sodium chloride tablets and repeat lactate in remained stable sodium of 118. I requested nursing staff give patient any Gatorade and the patient been placed on a regular diet. Urine sodium and creatinine have been ordered but nursing staff had discarded the patient's urine specimen and has not yet been obtained. Patient is not having any acute neurologic symptoms to suggest decompensation. Will continue monitor sodiums closely. Then will try starting maintenance fluids normal saline at 100 mL an hour. If no improvement in sodium in the next 8-12 hours will consult Nephrology for further recommendation The patient's metabolic acidosis has now resolved. Patient has been admitted as observation status. MEDICAL DECISION MAKING NARRATIVE -Spoke with the ED provider in detail regarding patient's evaluation, workup and management -Patient seen and examined at bedside -Collaborated with patient's nurse at the bedside in detail and addressed all concerns -Labs, electrolytes, radiology, investigations and test results personally reviewed and interpreted unless otherwise specified -ED/Consult/Nursing/Ancilliary notes on the chart reviewed and appreciated -Spoke with patient at bedside and diagnosis and plan of care was discussed. All questions answered. Quality VTE Prophylaxis VTE prophylaxis: pharmacologic ordered (Lovenox 40 mg subQ daily.) Hospitalist [facility] Advance Care Plan I have confirmed that the patient's Advanced Care Plan is present, code status is documented, or surrogate decision maker is listed in patient medical record.: Yes Medication Reconciliation I have utilized all available resources to obtain, update and review the patients current medications (includes all prescriptions, OTC, herbals, cannabis, and nutritional supplements).: Yes
[2025-03-08 21:23] LABS: Anion Gap 10 mmol/L (4-12); Blood Urea Nitrogen 11 mg/dL (9-20); Calcium 8.6 mg/dL (8.4-10.2); Carbon Dioxide 21 mmol/L (22-30); Chloride 87 mmol/L (98-107); Estimated Glomerular Filt Rate > 60; Glucose 130 mg/dL (65-110); Potassium 4.2 mmol/L (3.4-5.0); Sodium 118 mmol/L (137-145)
[2025-03-08 22:01] LABS: Influenza A QL RT-PCR Negative (Negative); Influenza B QL RT-PCR Negative (Negative); RSV RNA, RT-PCR Negative (Negative); SARS-CoV-2 RNA PCR Negative (Negative)
[2025-03-08] MEDS: SODIUM CHLORIDE 1 GM TABLET PO (22:09)
[2025-03-09] VITALS (7 sets, daily range): BP systolic 124–134; BP diastolic 47–82; PULSE 57–84; RESP 16–18; TEMP 36.5–36.9; O2SAT 97–100
[2025-03-09 02:08] LABS: Anion Gap 6 mmol/L (4-12); Blood Urea Nitrogen 11 mg/dL (9-20); Calcium 8.2 mg/dL (8.4-10.2); Carbon Dioxide 23 mmol/L (22-30); Chloride 89 mmol/L (98-107); Estimated CRCL calculation 90 ml/min; Estimated Glomerular Filt Rate > 60; Glucose 93 mg/dL (65-110); Potassium 3.5 mmol/L (3.4-5.0); Sodium 118 mmol/L (137-145)
[2025-03-09 03:09] LABS: Magnesium 1.6 mg/dL (1.6-2.3)
[2025-03-09] MEDS: SODIUM CHLORIDE 0.9% IV 1,000 ML 100 ML IV CONT (03:39)
[2025-03-09 05:49] LABS: Hematocrit 32.5 % (42.0-52.0); Hemoglobin 11.9 g/dL (14.0-18.0); Mean Corpuscular HGB Conc 36.6 g/dl (32-36); Mean Corpuscular Hemoglobin 33.6 pg (26-34); Mean Corpuscular Volume 91.8 fl (80-100); Platelet Count Result 267 k/mm3 (150-375); Red Blood Count 3.54 M/mm3 (4.6-6.20); White Blood Count 6.3 K/mm3 (4.5-10.0)
[2025-03-09 06:04] LABS: Anion Gap 5 mmol/L (4-12); Blood Urea Nitrogen 10 mg/dL (9-20); Calcium 8.3 mg/dL (8.4-10.2); Carbon Dioxide 23 mmol/L (22-30); Chloride 92 mmol/L (98-107); Estimated CRCL calculation 85 ml/min; Estimated Glomerular Filt Rate > 60; Glucose 88 mg/dL (65-110); Potassium 3.7 mmol/L (3.4-5.0); Sodium 120 mmol/L (137-145)
--- NOTE | 2025-03-09 08:36 | P.PNIM_ITS ---
Progress Note: A&P Assessment and Plan (1) Acute hyponatremia: Code(s): E87.1 - Hypo-osmolality and hyponatremia Status: Acute Assessment and Plan: * Upon admission, Na 120 -> 118 * Clinical symptoms suggest volume depletion give elevated urine ketones/serum protein * Na dropped from 120->118 in ER after 1L fluids, was given dose of oral NaCl tablet and Na still was 118 * Not presenting with any acute neurological symptoms to suggest decompensation * Monitor daily labs * Nephrology consult for any further recommendations * likely 2/2 to excessive alcohol use/dehydration * Repeat Na on 03/09: Na 124 (2) Nausea & vomiting: Qualifiers: Vomiting type: unspecified Qualified Code(s): R11.2 - Nausea with vomiting, unspecified Code(s): R11.2 - Nausea with vomiting, unspecified Status: Acute Assessment and Plan: * Related to excessive ETOH use over weekend * see plan above * Denies any n/v today (3) Elevated serum protein level: Code(s): R77.9 - Abnormality of plasma protein, unspecified Status: Acute Assessment and Plan: * See problem 1, likely 2/2 to dehydration/ETOH use (4) Ketonuria: Code(s): R82.4 - Acetonuria Status: Acute Assessment and Plan: * See problem 1, likely 2/2 to dehydration/ETOH use (5) Metabolic acidosis: Code(s): E87.20 - Acidosis, unspecified Status: Resolved Assessment and Plan: * See problem 1, likely 2/2 to dehydration/ETOH use * resolved Subjective Date/time seen: 03/09/25 08:36 Interval history: 59-year-old male with a past medical history of tobacco use, ulcerative colitis, asthma, essential hypertension and mild hyponatremia who presented to [facility] ER due to chills and vomiting that started this afternoon. The patient usually only drinks a 6 pack of beer once a week last night was at his daughter's wedding and drink a significant amount of alcohol. 03/09/2025 Patient sitting comfortably bed at time of examination. Denies any chest pain, shortness of breath, nausea/vomiting or abdominal pain. Sodium uptrending today, from 120 -> 124. Nephrology consulted, appreciate further recommendations. Will need to avoid rapid over correction. Pt otherwise doing well, likely can d/c tomorrow pending nephro recommendations. Review of Systems Review of Systems: 12 systems were reviewed with pertinent positives and negatives per HPI. Except as documented in the HPI, all other systems were reviewed and are negative. Exam Narrative: Weight 73.5 kg BMI 26.2 Const: Other: No acute distress, well-developed well-nourished, appears younger than stated age HENMT: Other: Mucous membranes are tacky, no oral pharyngeal erythema Eyes: Other: Pupils are equal and reactive, no scleral icterus, no conjunctival pallor Neck: Other: No JVD, no lymphadenopathy Resp: Other: Clear to auscultation bilaterally, no increased work of breathing Cardio: Other: Regular rate, regular rhythm, 2+ bilateral radial pedal pulses GI: Other: Soft, nontender, nondistended, positive bowel sounds Skin: Other: Tanned, non jaundice, no pallor Neuro: Other: Alert orient x4, speech is clear, no facial asymmetry, lung localizing neurologic deficits Extrem: Other: No clubbing, cyanosis or edema Psych: Other: Appropriate mood and affect, pleasant and and cooperative, judgment and insight intact Objective Data Vital Signs Vital Signs: Vital Signs - 24 hr 03/08/25 19:54 03/09/25 00:00 Temperature 98.2 F Pulse Rate 84 Respiratory Rate 16 Blood Pressure 124/47 L Pulse Oximetry 99 Oxygen Delivery Room Air Intake/Output Intake/Output: Intake & Output 03/06/25 03/07/25 03/08/25 03/09/25 23:59 23:59 23:59 23:59 Output Total 900 Balance -900 Meds/Results Medications: Active Medications Generic Name Dose Route Start Last Admin Trade Name Shashiq PRN Reason Stop Dose Admin Alprazolam 0.25 mg 03/09/25 09:00 Alprazolam (*Crx) 0.25 Mg Tablet PO DAILY ALIDA Enoxaparin Sodium 40 mg 03/09/25 09:00 Enoxaparin 40 Mg/0.4 Ml Syringe SUB-Q DAILY ALIDA Fluticasone Propionate 2 puff 03/08/25 20:50 Fluticasone Prop 220 Mcg (*Sp) 12 Gm Inhaler INHALATION Q12HRT [facility] Sodium Chloride 1,000 mls @ 100 mls/hr 03/09/25 03:05 03/09/25 03:39 Normal Saline Iv IV CONT 100 mls/hr .Q10H [facility]IDA Administration Loratadine 10 mg 03/09/25 09:00 Loratadine 10 Mg Tablet PO DAILY [facility] Metoprolol Tartrate 50 mg 03/08/25 21:00 03/08/25 21:12 Metoprolol Tartrate 50 Mg Tab PO 50 mg Q12HR [facility] Administration Pantoprazole Sodium 40 mg 03/09/25 09:00 Pantoprazole Sodium Iv 40 Mg Vial IV PUSH QAM [facility] Sodium Chloride 500 mg 03/09/25 09:00 Sodium Chloride 500 Mg Tablet PO BID [facility] Labs Labs: Laboratory Results - last 24 hr 03/08/25 03/08/25 03/09/25 21:00 21:10 01:47 WBC RBC Hgb Hct MCV MCH MCHC RDW Plt Count MPV Sodium 118 L* 118 L* Potassium 4.2 3.5 Chloride 87 L 89 L Carbon Dioxide 21 L 23 Anion Gap 10 6 BUN 11 11 Creatinine 0.67 L 0.67 L Estim Creat Clear Calc Not Reportable 90 Estimated GFR > 60 > 60 Glucose 130 H 93 Calcium 8.6 8.2 L Phosphorus 3.5 Magnesium 1.6 Ur Random Sodium Urine Creatinine Influenza A (RT-PCR) Negative Influenza B (RT-PCR) Negative RSV (RT-PCR) Negative SARS-CoV-2 RNA (RT-PCR) Negative 03/09/25 03/09/25 03:44 05:16 WBC 6.3 RBC 3.54 L Hgb 11.9 L Hct 32.5 L MCV 91.8 MCH 33.6 MCHC 36.6 H RDW 12.3 Plt Count 267 MPV 8.5 Sodium 120 L Potassium 3.7 Chloride 92 L Carbon Dioxide 23 Anion Gap 5 BUN 10 Creatinine 0.71 Estim Creat Clear Calc 85 Estimated GFR > 60 Glucose 88 Calcium 8.3 L Phosphorus Magnesium Ur Random Sodium 18 Urine Creatinine 67.7 Influenza A (RT-PCR) Influenza B (RT-PCR) RSV (RT-PCR) SARS-CoV-2 RNA (RT-PCR) Quality VTE Prophylaxis VTE prophylaxis: pharmacologic ordered (Lovenox 40 mg subQ daily.)
[2025-03-09] MEDS: SODIUM CHLORIDE 500 MG TABLET PO (08:50)
[2025-03-09] MEDS: METOPROLOL TARTRATE 50 MG TAB PO ×2 (08:50→20:49)
[2025-03-09] MEDS: ALPRAZolam (*CRX) 0.25 MG TABLET PO (08:50)
[2025-03-09] MEDS: ENOXAPARIN 40 MG/0.4 ML SYRINGE SUB-Q (08:50)
[2025-03-09] MEDS: FLUTICASONE PROP 220 MCG (*SP) 12 GM INHALER 2 PUFF INHALATION ×2 (08:50→20:13)
[2025-03-09] MEDS: LORATADINE 10 MG TABLET PO (08:50)
[2025-03-09] MEDS: PANTOPRAZOLE SODIUM IV 40 MG VIAL IV PUSH (08:50)
--- NOTE | 2025-03-09 09:59 | PC.NURSE ---
Verified per noc RN that Magnesium IVPB not charted as given and was not given.
[2025-03-09 10:24] LABS: Anion Gap 6 mmol/L (4-12); Blood Urea Nitrogen 10 mg/dL (9-20); Calcium 8.5 mg/dL (8.4-10.2); Carbon Dioxide 24 mmol/L (22-30); Chloride 94 mmol/L (98-107); Estimated CRCL calculation 78 ml/min; Estimated Glomerular Filt Rate > 60; Glucose 111 mg/dL (65-110); Potassium 4.1 mmol/L (3.4-5.0); Sodium 124 mmol/L (137-145)
--- NOTE | 2025-03-09 11:16 | P.CONNP_ITS ---
Assessment and Plan Assessment and plan (1) Hyponatremia: Code(s): E87.1 - Hypo-osmolality and hyponatremia Status: Acute Assessment and Plan: * noted on admission/presentation * acute on chronic * baseline sodium runs around 132 - 136 (although has been as low as 124mmol/L in the past year) * however, otherwise asymptomatic * multifactorial etiology: * excessive alcohol intake * significant free water consumption * prerenal factors * history of asthma * improvement noted with normal saline IVFs (and possibly salt tabs) * urine electrolytes c/w prerenal azotemia * due concerns of overcorrection, will hold salt tabs and cut back on IVFs * may need D5W IVFs if overcorrection occurs * goal of therapy is 6 - 8mmol/L change in 24 hours * follow trend of sodium (2) Metabolic acidosis: Code(s): E87.20 - Acidosis, unspecified Status: Resolved Assessment and Plan: * likely secondary to volume depletion and vomiting * resolving with IVFs (3) Nausea & vomiting: Qualifiers: Vomiting type: unspecified Qualified Code(s): R11.2 - Nausea with vomiting, unspecified Code(s): R11.2 - Nausea with vomiting, unspecified Status: Acute Assessment and Plan: * presumably due to excessive alcohol intake * appears better at this time I will continue to follow the patient with you while he remains hospitalized and make further recommendations as deemed necessary. Thank you for allowing me to participate in the care of this patient. L History of Present Illness Reason for Consult Consult date: 03/09/25 Reason for consult: hyponatremia Chief Complaint Chief complaint: Hyponatremia History of Present Illness Narrative: The patient is a 59-year-old male with a past medical history as outlined below who presented to [facility] with chills and vomiting. Apparently, on the day of admission, the symptoms started about an hour prior to his presentation. Along with the vomiting, he also had associated nausea as well as abdominal pain. He had at least 4 episodes of vomiting but there were no evidence of about emesis. Furthermore, given his symptoms of nausea vomiting, he reports that he has not been able to eat or drink very well since the symptoms started. He denies any other symptoms with regard to chest pain, shortness of breath, dizziness, palpitations, lightheadedness, or fevers. On further questioning, he reports that the night prior to presentation to the ER he drink a significant amount of alcohol while he was at his daughter's wedding. He does usually drink about a 6 pack of beer over a span of a week but drink much more than that the night before. He woke up earlier on the morning of admission ?hung over? and that is when his symptoms of nausea and vomiting started. Other associated symptoms include generalized shakes and diaphoresis but these seemed to subside around the time of his arrival to the ER at [facility]. Workup and evaluation at [facility] ER demonstrated the patient to be hemodynamically stable and afebrile. Routine blood work demonstrated white blood cell count of 8.0, hemoglobin 13.2, platelet count of 295, sodium 120, potassium 4.2, chloride 84, bicarb 16 BUN 11 creatinine 0.66 with a glucose of 102 along with a lactic acid of 1.8, calcium 9.4, and normal LFTs and normal lipase. His urinalysis was unremarkable and his urine drug screen was positive for benzodiazepines. His alcohol level was less than 10. He received a liter of LR and was subsequently transferred to [facility] for further evaluation therapy. Repeat labs done on his arrival to [facility] showed that his sodium level dropped to 118 and he was subsequently initiated on normal saline as well as salt tablets. His sodium early this morning had increased to 120 millimoles per L with a subsequent repeat check 4 hours later at 1:24 a.m. millimoles per L. As far as I can tell, despite his low sodium level both at the ER as well as on presentation here at [facility], he was otherwise asymptomatic. On further questioning, he also reports that he has an excessive water drinker of at least 5-6 glasses in a day. Renal consultation was requested due to his acute hyponatremia. From review his records, the patient has had some issues with hyponatremia in the past with the lowest sodium level at 124millimoles per L but he usually seems to average somewhere around 132 - 136 millimoles per L at baseline. In the past, when he has had low sodium levels, he usually cuts back on his water intake and this usually resolves issue/problem. It is suspected that his acute drop in sodium level is probably related to excessive alcohol intake in the context of his known significant free water intake at baseline coupled with his propensity for low sodium levels in general. As already mentioned above. Despite his low sodium level, he did not appear to have any other acute symptoms other than the side effect of too much alcohol intake. Currently, at the time my evaluation, he appears to be in no acute distress. Review of Systems 2 Review of Systems: As per HPI. [facility] Past Medical History Medical History (Updated 03/10/25 @ 09:00 by Latonya Pina MD) Paroxysmal atrial fibrillation (2021) Seasonal allergies Suspected sleep apnea Asthma Surgical History Surgical History History of carpal tunnel surgery Family History Family History Sibling Chronic obstructive pulmonary disease Congestive heart failure Grandparent Congestive heart failure Mother Hypertension Social History Social History (Updated 03/09/25 @ 03:40 by Camille Sanchez DO) Social History: Code status: Full code Surrogate decision maker: Sharmin (daughter) Smoking packs per day: 0.5 Smoking cigarettes per day: 10.0 Years smoked: 20 Smoking pack-years: 10.00 Smoking status: Former smoker Tobacco type: cigarettes Smoking end date: 06/25/09 Alcohol intake: current Drinks per week: 8 Alcohol use details: 6-8 beers once a week Substance use: never Substance use type: does not use Lack of Transportation: No Lack of Food: Never True Current Housing: I Have Housing Concerned About Future Housing: No Difficulty Paying Gas/Electric Bills: No Difficulty Paying for Meds: No Currently Unemployed: No Education: Trade/Vocational Certificate Difficulty w/ Childcare or Family Care: No Living arrangements: alone Additional living arrangements comments: He is . He has 3 daughters. Occupation/Education: occupation Additional occupation/education comments: Works at [employer]. Spiritual care concerns: No Meds Home Medications and Allergies Home Medications ?Medication ?Instructions ?Recorded ?Confirmed ?Type metoprolol tartrate 50 mg tablet 50 mg PO BID 01/09/24 03/08/25 History (Lopressor) alprazolam 0.25 mg tablet 0.25 mg PO DAILY 03/08/25 History cetirizine 10 mg capsule (All Day 10 mg PO DAILY 03/0803/08/25 History Allergy (cetirizine)) fluticasone furoate 200 1 inh inhalation Q24H 03/08/25 History mcg/actuation blister powder for inhalation (Arnuity Ellipta) Allergies Allergy/AdvReac Type Severity Reaction Status Date / Time No Known Allergies Allergy Verified 03/08/25 13:56 Vital Signs Vital Signs Temp Pulse Resp BP Pulse Ox O2 Del Method 03/09/25 16:00 72 03/09/25 15:12 98.4 F 64 16 125/69 97 03/09/25 12:06 63 03/09/25 08:00 84 16 99 Room Air 03/09/25 00:00 98.2 F 84 16 124/47 L 99 03/08/25 19:54 Room Air Exam 2 Narrative: GENERAL APPEARANCE: well developed well nourished male in no acute distress HEENT: normocephalic, atraumatic, normal conjunctiva and sclera, nares patient NECK: no lymphadenopathy, thyromegaly, or JVD MOUTH: normal lips, teeth, and gums CARDIOVASCULAR: RRR, normal S1 and S2, no rub RESPIRATORY: clear to auscultation bilaterally ABDOMEN: soft, nontender, nondistended, positive bowel sounds present EXTREMITIES: no evidence of cyanosis, clubbing, or edema NEUROLOGICAL: alert and oriented x 3; CN II - XII intact bilaterally; no focal deficits noted Results Lab Results 03/09/25 05:16 03/10/25 05:35 Lab results: Most recent lab results Calcium 8.4 mg/dL (8.4-10.2) 03/09/25 13:59 Phosphorus 3.5 mg/dL (2.5-4.5) 03/08/25 21:00 Magnesium 1.6 mg/dL (1.6-2.3) 03/08/25 21:00 Urine Creatinine 67.7 mg/dL 03/09/25 03:44
[2025-03-09] MEDS: MAGNESIUM SULF 2 GM/WATER 50ML 2 GM/50 ML BAG IVPB (11:21)
[2025-03-09 14:16] LABS: Anion Gap 6 mmol/L (4-12); Blood Urea Nitrogen 12 mg/dL (9-20); Calcium 8.4 mg/dL (8.4-10.2); Carbon Dioxide 24 mmol/L (22-30); Chloride 95 mmol/L (98-107); Estimated CRCL calculation 74 ml/min; Estimated Glomerular Filt Rate > 60; Glucose 111 mg/dL (65-110); Potassium 4.2 mmol/L (3.4-5.0); Sodium 125 mmol/L (137-145)
[2025-03-09 18:02] LABS: Sodium 128 mmol/L (137-145)
[2025-03-09] MEDS: DEXTROSE 5% 1,000 ML 1,000 ML 200 ML IV CONT (19:12)
[2025-03-09 23:36] LABS: Sodium 127 mmol/L (137-145)
[2025-03-10] VITALS: PULSE 64
--- NOTE | 2025-03-10 00:07 | PC.NURSE ---
Notified Dr. Pina of na+127 level
[2025-03-10 04:00] VITALS: PULSE 55
[2025-03-10 06:09] LABS: Albumin Level 3.7 g/dL (3.5-5.1); Anion Gap 4 mmol/L (4-12); Blood Urea Nitrogen 11 mg/dL (9-20); Calcium 8.4 mg/dL (8.4-10.2); Carbon Dioxide 25 mmol/L (22-30); Chloride 99 mmol/L (98-107); Estimated CRCL calculation 81 ml/min; Estimated Glomerular Filt Rate > 60; Glucose 96 mg/dL (65-110); Potassium 4.3 mmol/L (3.4-5.0); Sodium 128 mmol/L (137-145)
[2025-03-10 06:29] VITALS: BP 135/74; PULSE 64; RESP 18; TEMP 36.9; O2SAT 99
[2025-03-10] MEDS: FLUTICASONE PROP 220 MCG (*SP) 12 GM INHALER 2 PUFF INHALATION (07:53)
[2025-03-10 08:00] VITALS: PULSE 66
[2025-03-10] MEDS: ALPRAZolam (*CRX) 0.25 MG TABLET PO (08:34)
[2025-03-10] MEDS: LORATADINE 10 MG TABLET PO (08:34)
[2025-03-10] MEDS: PANTOPRAZOLE SODIUM IV 40 MG VIAL IV PUSH (08:34)
[2025-03-10 08:36] VITALS: PULSE 61
[2025-03-10] MEDS: METOPROLOL TARTRATE 50 MG TAB PO (08:36)
--- NOTE | 2025-03-10 09:07 | P.PNNP_ITS ---
Progress Note: A&P Assessment and Plan (1) Hyponatremia: Code(s): E87.1 - Hypo-osmolality and hyponatremia Status: Acute Assessment and Plan: * slow improvement/resolving * noted on admission/presentation * acute on chronic * baseline sodium runs around 132 - 136 (although has been as low as 124mmol/L in the past year) * however, otherwise asymptomatic * multifactorial etiology: * excessive alcohol intake * significant free water consumption * prerenal factors * history of asthma * improvement noted with normal saline IVFs (and possibly salt tabs) * urine electrolytes c/w prerenal azotemia * due concerns of overcorrection: * s/p D5W IVFs * goal of therapy is 6 - 8mmol/L change in 24 hours - this was acheived * follow trend of sodium (2) Metabolic acidosis: Code(s): E87.20 - Acidosis, unspecified Status: Resolved Assessment and Plan: * likely secondary to volume depletion and vomiting * resolved with IVFs (3) Nausea & vomiting: Qualifiers: Vomiting type: unspecified Qualified Code(s): R11.2 - Nausea with vomiting, unspecified Code(s): R11.2 - Nausea with vomiting, unspecified Status: Acute Assessment and Plan: * presumably due to excessive alcohol intake * appears better at this time Will continue to follow. L Subjective Date/time seen: 03/10/25 09:07 Interval history: Follow-up for acute on chronic hyponatremia. Due to concerns of overcorrection, received D5W IVFs to slow down rise in sodium level; otherwise, no apparent distress noted at the time of my visit; no further nausea or vomiting; sodium appears to have stabilized by AM labs. Exam 2 Narrative: General: WD/WN male in NAD Heart: normal S1 and S2; no rub Lungs: clear to auscultation Abdomen: soft, nontender, nondistended, positive bowel sounds Extremities: no cyanosis or clubbing; no edema Skin: warm and dry Objective Data Vital Signs Vital Signs: Vital Signs Temp Pulse Resp BP Pulse Ox O2 Del Method 03/10/25 08:36 61 03/10/25 06:29 98.4 F 64 18 135/74 99 03/10/25 04:00 55 L 03/10/25 00:00 64 03/09/25 21:12 97.7 F 61 18 134/82 100 03/09/25 20:00 57 L 03/09/25 20:00 Room Air 03/09/25 16:00 72 03/09/25 15:12 98.4 F 64 16 125/69 97 03/09/25 12:06 63 Intake/Output Intake/Output: Intake & Output 03/07/25 03/08/25 03/09/25 03/10/25 23:59 23:59 23:59 23:59 Intake Total 1110 0 Output Total 1999 750 Balance -890 -750 Meds/Results Medications: Active Medications Generic Name Dose Route Start Last Admin Trade Name Nahum PRN Reason Stop Dose Admin Alprazolam 0.25 mg 03/09/25 09:00 03/10/25 08:34 Alprazolam (*Crx) 0.25 Mg Tablet PO 0.25 mg DAILY ALIDA Administration Enoxaparin Sodium 40 mg 03/09/25 09:00 03/10/25 08:36 Enoxaparin 40 Mg/0.4 Ml Syringe SUB-Q Not Given DAILY [facility] Fluticasone Propionate 2 puff 03/08/25 20:50 03/10/25 07:53 Fluticasone Prop 220 Mcg (*Sp) 12 Gm Inhaler INHALATION 2 puff Q12HRT ALIDA Administration Loratadine 10 mg 03/09/25 09:00 03/10/25 08:34 Loratadine 10 Mg Tablet PO 10 mg DAILY ALIDA Administration Metoprolol Tartrate 50 mg 03/08/25 21:00 03/10/25 08:36 Metoprolol Tartrate 50 Mg Tab PO 50 mg Q12HR ALIDA Administration Pantoprazole Sodium 40 mg 03/09/25 09:00 03/10/25 08:34 Pantoprazole Sodium Iv 40 Mg Vial IV PUSH 40 mg QAM ALIDA Administration Sodium Chloride 500 mg 03/09/25 09:00 03/09/25 18:07 Sodium Chloride 500 Mg Tablet PO Not Given On Hold: 03/09/25 17:07 BID [facility] Labs Labs: Laboratory Tests 03/09/25 05:16 03/10/25 05:35 Calcium 8.4 Phosphorus 2.6 Albumin 3.7
--- NOTE | 2025-03-10 09:26 | P.DS_ITS ---
DS: Admitting Diagnosis Discharge Date 03/10/2025 Admitting Diagnosis Hyponatremia DS: Discharge Diagnosis Discharge Diagnosis (1) Acute hyponatremia: Code(s): E87.1 - Hypo-osmolality and hyponatremia Status: Acute Assessment and Plan: * Upon admission, Na 120 -> 118 * Clinical symptoms suggest volume depletion give elevated urine ketones/serum protein * Na dropped from 120->118 in ER after 1L fluids, was given dose of oral NaCl tablet and Na still was 118 * Not presenting with any acute neurological symptoms to suggest decompensation * Monitor daily labs * Nephrology consult for any further recommendations * likely 2/2 to excessive alcohol use/dehydration * Repeat Na on 03/09: Na 124 (2) Nausea & vomiting: Qualifiers: Vomiting type: unspecified Qualified Code(s): R11.2 - Nausea with vomiting, unspecified Code(s): R11.2 - Nausea with vomiting, unspecified Status: Acute Assessment and Plan: * Related to excessive ETOH use over weekend * see plan above * Denies any n/v today (3) Elevated serum protein level: Code(s): R77.9 - Abnormality of plasma protein, unspecified Status: Acute Assessment and Plan: * See problem 1, likely 2/2 to dehydration/ETOH use (4) Ketonuria: Code(s): R82.4 - Acetonuria Status: Acute Assessment and Plan: * See problem 1, likely 2/2 to dehydration/ETOH use (5) Metabolic acidosis: Code(s): E87.20 - Acidosis, unspecified Status: Resolved Assessment and Plan: * See problem 1, likely 2/2 to dehydration/ETOH use * resolved DS: Summary Hospital Course Reason for hospitalization: Nausea/vomiting, chills Hospital Course: 59-year-old male with a past medical history of tobacco use, ulcerative colitis, asthma, essential hypertension and mild hyponatremia who presented to [facility] due to chills and vomiting that started this afternoon. The patient usually only drinks a 6 pack of beer once a week last night was at his daughter's wedding and drink a significant amount of alcohol. He states he drinks so much today cannot stay exactly how much he did drink. He reported he woke hung over and was having multiple episodes of vomiting. His emesis was clear. He reported that after it had several episodes of vomiting he began having some shakes and cold sweats. His symptoms lasted for about an hour. Did resolve by the time he arrived to the outside ER. His labs at the outside ER demonstrated sodium of 120. He had a history of prior episodes of hyponatremia which r esolved in the past after drinking Pedialyte. He reports that he is still occasionally drinking some electrolyte supplements but has not consistently done so recently. He reports that he drinks 5-6 bottles of water a day. He denies any recent weight loss or respiratory symptoms. He reports usual amount of urine output. Labs at the outside also demonstrated ketones in his urine low chloride and low serum bicarb. He received 1 L of LR. And was transferred [facility] facility for further care. Nephrology consulted regarding hyponatremia. Baseline sodium runs around 132- 136, sodium was 118 upon admission. Patient wore however was asymptomatic. Likely multifactorial, excessive alcohol intake, significant free water consumption.. Over course of hospitalization, sodium improved to 128. Due to concerns a correction, salt tablets were held and IV fluid the rate was reduced. And no point throughout hospitalization did the patient have any nausea/vomiting. Patient overall is hemodynamically stable for discharge. Discussed with Nephrology who agrees with discharge at this point. Will order repeat BMP in a few days and will advise the patient to follow-up with his primary care physician. Will encourage adequate oral hydration as well. Patient amenable to discharge, discharge at this time. Status at Discharge Functional status at discharge: independent ambulation Overall status at discharge: patient is back to baseline Time Spent with Patient Time attestation: Total time spent providing and/or coordinating discharge services: 32 Exam Narrative: Weight 73.5 kg BMI 26.2 Const: Other: No acute distress, well-developed well-nourished, appears younger than stated age HENMT: Other: Mucous membranes are moist, no oral pharyngeal erythema Eyes: Other: Pupils are equal and reactive, no scleral icterus, no conjunctival pallor Neck: Other: No JVD, no lymphadenopathy Resp: Other: Clear to auscultation bilaterally, no increased work of breathing Cardio: Other: Regular rate, regular rhythm, 2+ bilateral radial pedal pulses GI: Other: Soft, nontender, nondistended, positive bowel sounds Skin: Other: Tanned, non jaundice, no pallor Neuro: Other: Alert orient x4, speech is clear, no facial asymmetry, lung localizing neurologic deficits Extrem: Other: No clubbing, cyanosis or edema Psych: Other: Appropriate mood and affect, pleasant and and cooperative, judgment and insight intact DS: Data Data Completed and Pending Labs on day of discharge: Labs from last 24 hours 03/10/25 03/09/25 03/09/25 05:35 23:14 17:41 Sodium 128 L 127 L 128 L Potassium 4.3 Chloride 99 Carbon Dioxide 25 Anion Gap 4 BUN 11 Creatinine 0.75 Estim Creat Clear Calc 81 Estimated GFR > 60 Glucose 96 Calcium 8.4 Phosphorus 2.6 Albumin 3.7 03/09/25 03/09/25 13:59 09:52 Sodium 125 L 124 L Potassium 4.2 4.1 Chloride 95 L 94 L Carbon Dioxide 24 24 Anion Gap 6 6 BUN 12 10 Creatinine 0.82 0.78 Estim Creat Clear Calc 74 78 Estimated GFR > 60 > 60 Glucose 111 H 111 H Calcium 8.4 8.5 Phosphorus Albumin Discharge Plan Discharge Attending physician on discharge: Brian Padron Consulting providers: Luis Corbin; Latonya Pina Discharging Clinician: Luis Corbin Anticipated Discharge Date/Time: 03/10/25 09:15 Patient Disposition: Home Activity: no straining Diet: regular Discharge Instructions: Discharge disposition: Home Take medications as prescribed. I will give you an ambulatory order to fill out blood work in 2 days. This will be a basic metabolic panel to assess your sodium levels. Get this blood work obtained at allocation of your choice and follow up with your primary care physician regarding these results. Monitor blood pressures Take caution while standing, rising, or moving Change positions slowly taking a break between each position change If you standing feel dizzy sit back down and take a break Encouraged to continue with yearly vaccinations Return to the emergency department if he developed sudden shortness of breath, chest pain, nausea, vomiting, upset stomach or intractable diarrhea Return to the emergency department if you develop fever greater than 101.5 Follow-up with the primary care physician within 1-2 weeks Thank you for [facility] for your healthcare needs Patient Instructions: Antibiotic Form Patient Language: Pashto Stand Alone Forms: General Discharge Information Follow-up/Referrals: All Guerra MD [Primary Care Provider, Internal Medicine] Discharge Medications: Continued alprazolam 0.25 mg tablet 0.25 mg PO DAILY fluticasone furoate [Arnuity Ellipta] 200 mcg/actuation blister with device 1 inh INHALATION Q24H All Day Allergy (cetirizine) 10 mg capsule 10 mg PO DAILY metoprolol tartrate [Lopressor] 50 mg tablet 50 mg PO BID Other Ambulatory Orders: Basic Metabolic Panel (Routine) Timeframe: 2 Days Location: Determined by Patient Ordered By: Luis Corbin Date of admission: 03/09/25 07:33 Primary Care Provider: All Guerra Admitting Provider: Anali Georges Attending physician on admission: Anali Georges Condition: Stable Quality VTE Prophylaxis VTE prophylaxis: pharmacologic ordered (Lovenox 40 mg subQ daily.)
== END 2025-03-10 12:10 | disposition home or self-care (01) | DRG 641 ==
PROVIDERS: Internal Medicine; Internal Medicine Nephrology; Admitting Provider General Practice; PCP Internal Medicine; Visit Provider Physician Assistant
DX: E87.1 Hypo-osmolality and hyponatremia (principal); F10.939 Alcohol use, unspecified with withdrawal, unspecified; E86.0 Dehydration; R82.4 Acetonuria; E87.21 Acute metabolic acidosis; I10 Essential (primary) hypertension; G47.30 Sleep apnea, unspecified; J45.909 Unspecified asthma, uncomplicated; Z87.891 Personal history of nicotine dependence; Z87.19 Personal history of other diseases of the digestive system
CPT/HCPCS: 36415; 80048; 80069; 82570; 83735; 84100; 84295; 84300; 85027; 87637; 94640; A9270; G0378; J1650; J2470; J3475; J7030; J7070

== ENCOUNTER 2025-03-12 09:13 | Outpatient (CLI) | payer BC, SELFPAY ==
--- OUTSIDE RECORDS SUMMARY | 2025-03-12 09:39 | XMS_ITS | Clinical Summary ---
Author Organization [facility] Address [facility] [place] [address] Care Team Providers Care Ms Sql Developer Name Role Phone Unavailable Primary Care Provider [...]
--- OUTSIDE RECORDS SUMMARY | 2025-03-12 09:39 | XMS_ITS | Encounter Summary ---
Author Organization [facility] Address [address] [place] [address] Phone Care Team Providers Care Box Liner Name Role Phone All Guerra MD Primary Care Provider Encounter Details Date Type Department Care Team (Late st Contact Info) Description 04/25/2018 Telephone [facility] Cardiology [address] [facility] [facility] Advanced Medicine [address] [place] [address] [place] [address] Mony Loyola MD [address] [place] [address] Social History Tobacco Use Types Packs/Day Years Used Date Smoking Tobacco: Former Sex and Gender Information Value Date Recorded Sex Assigned at Not on file Legal Sex Male 1:55 PM [employer] HEL[employer] Gender Identity Not on file Sexual Orientation Not on file documented as of this encounter Plan of Treatment Not on file documented as of this encounter Visit Diagnoses Not on filedocumented in this encounter Care Teams Box Liner Relationship Specialty Start Date End Date All Guerra MD [address] [place], [place] [id number] PCP - General 01/10/17 documented as of this encounter
--- OUTSIDE RECORDS SUMMARY | 2025-03-12 09:39 | XMS_ITS | Clinical Summary ---
Author Organization [facility] al Address [address] [place] [address] Care Team Providers Care Case Checker Name Role Phone All Guerra MD [...] 09/16/2021 Assessment & Plan (06/21/2022 8:22 AM ELECTRONICS TECHNOLOGY DEPARTMENT CHAIR): -Continue statin Assessment & Plan (09/18/2021 10:28 [...] 3 hours -Not on oral anticoagulation - [id number] score 0 -Continue metoprolol tartrate 50 mg BID Assessment & Plan (01/11/2024 1:28 PM CDT): Paroxysmal atrial fibrillation s/p PVI ablation 2022 Recent palpitations have subsided. SR today. If arrhythmias recur, will obtain event monitor Stop Eliquis - [id number] score 0 Continue metoprolol 50 mg BID Follow up in 6 months, sooner as needed Assessment & Plan (10/31/2022 10:08 AM CDT): Paroxysmal atrial fibrillation s/p PVI ablation 2022 He had limited early AF recurrence, no AF in the past several months Stop dofetilide Continue metoprolol 50 mg BID No longer on oral anticoagulation - [id number] score 0 He has samples of Eliquis to take if he has a prolonged episode of AF Encouraged him to limit alcohol intake Continue regular exercise Follow up in 6 months, sooner as needed Assessment & Plan (07/20/2022 4:10 PM ELECTRONICS TECHNOLOGY DEPARTMENT CHAIR): Paroxysmal atrial fibrillation s/p PVI ablation 2022 [...] needed Assessment & Plan (06/21/2022 8:22 AM ELECTRONICS TECHNOLOGY DEPARTMENT CHAIR): S/p AFib ablation on 06/20. Feels well. 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 ELECTRONICS TECHNOLOGY DEPARTMENT CHAIR Gender Identity Not on file Sexual Orientation Not on file Obstetrics History Last Filed Vital Signs Vital Sign Reading Time Taken Comments Blood Pressure 131/79 11/06/2024 8:55 AM CDT Pulse 55 11/06/2024 8:55 AM CDT Temperature 36.5 C (97.7 F) 06/21/2022 4:25 AM ELECTRONICS TECHNOLOGY DEPARTMENT CHAIR Respiratory Rate 15 06/21/2022 4:25 AM ELECTRONICS TECHNOLOGY DEPARTMENT CHAIR Oxygen Saturation 99% 11/06/2024 8:55 AM CDT [...] history exists Medical Devices Implanted Type Area Radiologic Technologist Device Identifier Shelf Expiration Date Model / Serial / Lot [employer] Vascade Mvp 6-12fr Venous Closure [id number] - [id number] - [id number] Implanted:Qty : 1 on 2022 by Garfield Mcdonald MD PhD at [facility] Collagen Right: Groin [employer] 02/24/2024 800-612C-1 0U / [id number] / [id number] [id number] [employer] Vascade Mvp 6-12fr Venous Closure [id number] - [id number] - [id number] Implanted:Qty : 1 on 2022 by Garfield Mcdonald MD PhD at [facility] Collagen Left: Groin [employer] 02/24/2024 800-612C-1 0U / [id number] / [id number] [employer] Device Closure Vascade Od5 Fr Femoral Artery [id number] - [id number] - [id number] Implanted:Qty : 1 on 2022 by Garfield Mcdonald MD PhD at [facility] Collagen Left: Groin [employer] 04/03/2024 700-500DX- 05U / [id number] / [id number] 17A [employer] Vascade Mvp 6-12fr Venous Closure [id number] - [id number] - [id number] Implanted:Qty : 1 on 2022 by Garfield Mcdonald MD PhD at [facility] Collagen Left: Patricia [employer] 02/16/2024 800-612C-1 0U / [id number] / [id number] 1A Insurance [place] CHO[place] Advance Directives For more information, please contact: [phone] * Full Code (Latest Code Status on File) Date Activated Date Inactivated Comments 09/16/2021 5:25 PM 09/19/2021 7:31 PM Care Teams Case Checker Relationship Specialty Start Date End Date All Guerra MD [address] [place] [address] PCP - General 01/10/17
--- OUTSIDE RECORDS SUMMARY | 2025-03-12 09:39 | XMS_ITS | Encounter Summary ---
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
--- OUTSIDE RECORDS SUMMARY | 2025-03-12 09:39 | XMS_ITS | Clinical Summary ---
Author Organization [facility] Care Team Providers Care Rn Field Name Role Phone Unavailable Primary Care Provider [...]
--- OUTSIDE RECORDS SUMMARY | 2025-03-12 09:39 | XMS_ITS | Encounter Summary ---
Author Organization [facility] Address [address] [place] [address] Phone Care Team Providers Care Plate Embosser Name Role Phone All Guerra MD Primary Care Provider Encounter Details Date Type Department Care Team (Late st Contact Info) Description 04/16/2018 Telephone [facility] Cardiology [address] [facility] Advanced Medicine 8th [place] [address] [place] [address] Ashley Car, MPH Social History Tobacco Use Types Packs/Day Years Used Date Smoking Tobacco: Former Sex and Gender Information Value Date Recorded Sex Assigned at Not on file 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
[2025-03-12 09:49] LABS: Anion Gap 12 mmol/L (4-12); Blood Urea Nitrogen 27 mg/dL (9-20); Calcium 10.1 mg/dL (8.4-10.2); Carbon Dioxide 24 mmol/L (22-30); Chloride 96 mmol/L (98-107); Estimated Glomerular Filt Rate > 60; Glucose 90 mg/dL (65-110); Osmolality Calculated 279 mOsm/kg (285-295); Potassium 4.7 mmol/L (3.4-5.0); Sodium 132 mmol/L (137-145)
== END 2025-03-12 09:14 | disposition home or self-care (01) ==
PROVIDERS: PCP Internal Medicine; Visit Provider Physician Assistant
DX: E87.1 Hypo-osmolality and hyponatremia (principal)
CPT/HCPCS: 36415; 80048

== ENCOUNTER 2025-03-20 09:24 | Outpatient (CLI) | payer BC, SELFPAY ==
--- OUTSIDE RECORDS SUMMARY | 2025-03-20 09:29 | XMS_ITS | Encounter Summary ---
Author Organization [facility] Address [address] [place] [address] Phone Care Team Providers Care Psychiatric Mental Health Nurse Name Role Phone All Guerra MD Primary Care Provider Encounter Details Date Type Department Care Team (Late st Contact Info) Description 04/25/2018 Telephone 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
--- OUTSIDE RECORDS SUMMARY | 2025-03-20 09:29 | XMS_ITS | Encounter Summary ---
Author Organization [facility] Address [address] [place] [address] Phone Care Team Providers Care Propeller Driven Airplane Mechanic Name Role Phone All Guerra MD Primary Care Provider Encounter Details Date Type Department Care Team (Late st Contact Info) Description 04/16/2018 Telephone 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
--- OUTSIDE RECORDS SUMMARY | 2025-03-20 09:29 | XMS_ITS | Clinical Summary ---
Author Organization [facility] Care Team Providers Care Paving And Surfacing Labourer Name Role Phone Unavailable Primary Care Provider [...]
--- OUTSIDE RECORDS SUMMARY | 2025-03-20 09:29 | XMS_ITS | Clinical Summary ---
Author Organization [facility] al Address [address] [place] [address] Care Team Providers Care Bulk Mail Clerk Name Role Phone All Guerra MD [...] 09/16/2021 Assessment & Plan (06/21/2022 8:22 AM MAINTENANCE FOREMAN): -Continue statin Assessment & Plan (09/18/2021 10:28 [...] 3 hours -Not on oral anticoagulation - [id number] score 0 -Continue metoprolol tartrate 50 mg BID Assessment & Plan (01/11/2024 1:28 PM CDT): Paroxysmal atrial fibrillation s/p PVI ablation 2022 Recent palpitations have subsided. SR today. If arrhythmias recur, will obtain event monitor Stop Eliquis - [id number] score 0 Continue metoprolol 50 mg BID Follow up in 6 months, sooner as needed Assessment & Plan (10/31/2022 10:08 AM CDT): Paroxysmal atrial fibrillation s/p PVI ablation 2022 He had limited early AF recurrence, no AF in the past several months Stop dofetilide Continue metoprolol 50 mg BID No longer on oral anticoagulation - SFKDI1MZDv score 0 He has samples of Eliquis to take if he has a prolonged episode of AF Encouraged him to limit alcohol intake Continue regular exercise Follow up in 6 months, sooner as needed Assessment & Plan (07/20/2022 4:10 PM MAINTENANCE FOREMAN): Paroxysmal atrial fibrillation s/p PVI ablation 2022 [...] needed Assessment & Plan (06/21/2022 8:22 AM MAINTENANCE FOREMAN): S/p AFib ablation on 06/20. Feels well. 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 Gender Identity Not on file Sexual Orientation Not on file Obstetrics History Last Filed Vital Signs Vital Sign Reading Time Taken Comments Blood Pressure 131/79 11/06/2024 8:55 AM CDT Pulse 55 11/06/2024 8:55 AM CDT Temperature 36.5 C (97.7 F) 06/21/2022 4:25 AM MAINTENANCE FOREMAN Respiratory Rate 15 06/21/2022 4:25 AM MAINTENANCE FOREMAN Oxygen Saturation 99% 11/06/2024 8:55 AM CDT [...] history exists Medical Devices Implanted Type Area Cane Splicer Device Identifier Shelf Expiration Date Model / Serial / Lot [employer] Vascade Mvp 6-12fr Venous Closure [id number] - [id number] - [id number] Implanted:Qty : 1 on 2022 by Garfield Mcdonald MD PhD at [facility] Collagen Right: Groin [employer] 02/24/2024 800-612C-1 0U / [id number] 4A / [id number] [id number] [employer] Vascade Mvp 6-12fr Venous Closure [id number] - [id number] - [id number] Implanted:Qty : 1 on 2022 by Garfield Mcdonald MD PhD at [facility] Collagen Left: Groin [employer] 02/24/2024 800-612C-1 0U / [id number] 4A / [id number] [id number] [employer] Device Closure Vascade Od5 Fr Femoral Artery [id number] - [id number] - [id number] Implanted:Qty : 1 on 2022 by Garfield Mcdonald MD PhD at [facility] Collagen Left: Groin [employer] 04/03/2024 700-500DX- 05U / [id number] 17A / [id number] 17A [employer] Vascade Mvp 6-12fr Venous Closure [id number] - [id number] - [id number] Implanted:Qty : 1 on 2022 by Garfield Mcdonald MD PhD at [facility] Collagen Left: [employer] Inc 02/16/2024 800-612C-1 0U / [id number] 1A / [id number] 1A Insurance [place] [employer] [place] Advance Directives For more information, please contact: [phone] * Full Code (Latest Code Status on File) Date Activated Date Inactivated Comments 09/16/2021 5:25 PM 09/19/2021 7:31 PM Care Teams Bulk Mail Clerk Relationship Specialty Start Date End Date All Guerra MD [address] [place] [address] PCP - General 01/10/17
--- OUTSIDE RECORDS SUMMARY | 2025-03-20 09:29 | XMS_ITS | Encounter Summary ---
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
[2025-03-20 10:23] LABS: Anion Gap 9 mmol/L (4-12); Blood Urea Nitrogen 20 mg/dL (9-20); Calcium 9.8 mg/dL (8.4-10.2); Carbon Dioxide 26 mmol/L (22-30); Chloride 97 mmol/L (98-107); Estimated Glomerular Filt Rate > 60; Glucose 86 mg/dL (65-110); Osmolality Calculated 275 mOsm/kg (285-295); Potassium 5.3 mmol/L (3.4-5.0); Sodium 132 mmol/L (137-145)
== END 2025-03-20 09:25 | disposition home or self-care (01) ==
LOC: CHSLAB 09:27
PROVIDERS: PCP Internal Medicine; Visit Provider Nurse Practitioner Family
DX: E86.1 Hypovolemia (principal)
CPT/HCPCS: 36415; 80048

== ENCOUNTER 2025-04-03 09:59 | Outpatient (CLI) | payer BC, SELFPAY ==
[2025-04-03 11:33] LABS: Anion Gap 9 mmol/L (4-12); Blood Urea Nitrogen 23 mg/dL (9-20); Calcium 9.6 mg/dL (8.4-10.2); Carbon Dioxide 26 mmol/L (22-30); Chloride 98 mmol/L (98-107); Estimated Glomerular Filt Rate > 60; Glucose 73 mg/dL (65-110); Osmolality Calculated 278 mOsm/kg (285-295); Potassium 4.6 mmol/L (3.4-5.0); Sodium 133 mmol/L (137-145)
== END 2025-04-03 10:00 | disposition home or self-care (01) ==
LOC: CHSLAB 10:00
PROVIDERS: PCP Internal Medicine; Visit Provider Nurse Practitioner Family
DX: E87.1 Hypo-osmolality and hyponatremia (principal)
CPT/HCPCS: 36415; 80048

== ENCOUNTER 2025-04-14 08:02 | Outpatient (CLI) | payer BC, SELFPAY ==
--- OUTSIDE RECORDS SUMMARY | 2025-04-14 08:10 | XMS_ITS | Clinical Summary ---
Author Organization [facility] Address [address] [place] [address] Care Team Providers Care Bioinformatics Developer Name Role Phone All Guerra MD Primary Care Provider [phone] Allergies No known active allergies Medications pravastatin [...] 09/16/2021 Assessment & Plan (06/21/2022 8:22 AM MARKETING OPERATIONS COORDINATOR): -Continue statin Assessment & Plan (09/18/2021 10:28 [...] 3 hours -Not on oral anticoagulation - [id number] score 0 -Continue metoprolol tartrate 50 mg BID Assessment & Plan (01/11/2024 1:28 PM CDT): Paroxysmal atrial fibrillation s/p PVI ablation 2022 Recent palpitations have subsided. SR today. If arrhythmias recur, will obtain event monitor Stop Eliquis - [id number] score 0 Continue metoprolol 50 mg BID Follow up in 6 months, sooner as needed Assessment & Plan (10/31/2022 10:08 AM CDT): Paroxysmal atrial fibrillation s/p PVI ablation 2022 He had limited early AF recurrence, no AF in the past several months Stop dofetilide Continue metoprolol 50 mg BID No longer on oral anticoagulation - SJDQU4KOMy score 0 He has samples of Eliquis to take if he has a prolonged episode of AF Encouraged him to limit alcohol intake Continue regular exercise Follow up in 6 months, sooner as needed Assessment & Plan (07/20/2022 4:10 PM MARKETING OPERATIONS COORDINATOR): Paroxysmal atrial fibrillation s/p PVI ablation 2022 [...] needed Assessment & Plan (06/21/2022 8:22 AM MARKETING OPERATIONS COORDINATOR): S/p AFib ablation on 06/20. Feels well. 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 Gender Identity Not on file Sexual Orientation Not on file Obstetrics History Last Filed Vital Signs Vital Sign Reading Time Taken Comments Blood Pressure 131/79 11/06/2024 8:55 AM CDT Pulse 55 11/06/2024 8:55 AM CDT Temperature 36.5 C (97.7 F) 06/21/2022 4:25 AM MARKETING OPERATIONS COORDINATOR Respiratory Rate 15 06/21/2022 4:25 AM MARKETING OPERATIONS COORDINATOR Oxygen Saturation 99% 11/06/2024 8:55 AM CDT [...] history exists Medical Devices Implanted Type Area Table Saw Operator Device Identifier Shelf Expiration Date Model / Serial / Lot [employer] Vascade Mvp 6-12fr Venous Closure [id number] - [id number] - [id number] Implanted:Qty : 1 on 2022 by Garfield Mcdonald MD PhD at [facility] Collagen Right: Groin [employer] 02/24/2024 800-612C-1 0U / [id number] 4A / [id number] 4A [employer] Vascade Mvp 6-12fr Venous Closure [id number] - [id number] - [id number] Implanted:Qty : 1 on 2022 by Garfield Mcdonald MD PhD at [facility] Collagen Left: Groin [employer] 02/24/2024 800-612C-1 0U / [id number] 4A / [id number] 4A [employer] Device Closure Vascade Od5 Fr Femoral Artery [id number] - [id number] - [id number] Implanted:Qty : 1 on 2022 by Garfield Mcdonald MD PhD at [facility] Collagen Left: Groin [employer] 04/03/2024 700-500DX- 05U / [id number] 17A / [id number] 17A [employer] Vascade Mvp 6-12fr Venous Closure [id number] - [id number] - [id number] Implanted:Qty : 1 on 2022 by Garfield Mcdonald MD PhD at [facility] Collagen Left: Patricia [employer] Inc 02/16/2024 800-612C-1 0U / [id number] 1A / [id number] 1A Insurance [place] [employer] [place] Advance Directives For more information, please contact: [phone] * Full Code (Latest Code Status on File) Date Activated Date Inactivated Comments 09/16/2021 5:25 PM 09/19/2021 7:31 PM Care Teams Bioinformatics Developer Relationship Specialty Start Date End Date All Guerra MD [address] [place] [address] PCP - General 01/10/17
--- OUTSIDE RECORDS SUMMARY | 2025-04-14 08:10 | XMS_ITS | Clinical Summary ---
Author Organization [facility] Care Team Providers Care Visitor Services Assistant Name Role Phone Unavailable Primary Care Provider [...] 2013 Zoster Immunization (1 of 2) 2013 Influenza Immunization (#1) 2025 SARS-COV-2 Immunization ( season) 2025 Respiratory Syncytial Virus (RSV) Immunization (Adult) [...]
--- OUTSIDE RECORDS SUMMARY | 2025-04-14 08:10 | XMS_ITS | Encounter Summary ---
Author Organization [facility] Address [address] [place] [address] Phone Care Team Providers Care Price Economist Name Role Phone All Guerra MD Primary Care Provider [phone] Encounter Details Date Type Department Care Team (Late st Contact Info) Description 04/25/2018 Telephone [facility] Cardiology [address] [facility] Advanced Medicine 8th [place] [address] [place] [address] Mony Loyola MD [address] [place] [address] Social History Tobacco Use Types Packs/Day Years Used Date Smoking Tobacco: Former Sex and Gender Information Value Date Recorded Sex Assigned at Not on file 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
--- OUTSIDE RECORDS SUMMARY | 2025-04-14 08:10 | XMS_ITS | Encounter Summary ---
Author Organization [facility] Address [address] [place] [address] Phone Care Team Providers Care Pot Fireman Name Role Phone All Guerra MD Primary Care Provider Encounter Details Date Type Department Care Team (Late st Contact Info) Description 04/16/2018 Telephone [facility] Cardiology [address] [facility] Advanced Medicine 8th [place] [address] [place] [address] Ashley Car, MPH Social History Tobacco Use Types Packs/Day Years Used Date Smoking Tobacco: Former Sex and Gender Information Value Date Recorded Sex Assigned at Not on file 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
--- OUTSIDE RECORDS SUMMARY | 2025-04-14 08:10 | XMS_ITS | Clinical Summary ---
Author Organization [facility] Address [address] [place] [address] Care Team Providers Care Sales Closer Name Role Phone Unavailable Primary Care Provider [...] Vaccine (1 - 2023-2 5 season) 2025 Influenza Adult (#1) 2025 RSV Immunization or 60+ Years (1 - 1-dose 75+ series) 2038 Hepatitis A Vaccines Aged Out No long er eligible based on patient's age to complete this topic Meningococcal B Vaccine Aged Out No l onger eligible based on patient's age to complete this topic Meningococcal Vaccine Aged Out No jesika jamar eligible based on patient's age to complete this topic RSV Immunizations Under 20 Months Aged Out No longer eligible based on patient's age to complete this topic
--- OUTSIDE RECORDS SUMMARY | 2025-04-14 08:10 | XMS_ITS | Encounter Summary ---
Author Organization 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
[2025-04-14 08:18] LABS: Hematocrit 36.4 % (40.0-54.0); Hemoglobin 12.7 g/dL (14.0-18.0); Mean Corpuscular HGB Conc 34.9 g/dL (32-36); Mean Corpuscular Hemoglobin 33.9 pg (27.0-31.0); Mean Corpuscular Volume 97.1 fL (78.0-102.0); Platelet Count Result 256 K/mm3 (150-420); Red Blood Count 3.75 M/mm3 (4.70-6.10); White Blood Count 5.3 K/mm3 (4.8-10.8)
[2025-04-14 09:05] LABS: Alanine Aminotransferase 29 U/L (6-50); Albumin Level 4.2 g/dL (3.5-5.1); Alkaline Phosphatase 70 U/L (38-126); Anion Gap 6 mmol/L (4-12); Aspartate Amino Transferase 34 U/L (17-59); Bilirubin,Total 0.7 mg/dL (0.2-1.3); Blood Urea Nitrogen 12 mg/dL (9-20); Calcium 9.6 mg/dL (8.4-10.2); Carbon Dioxide 26 mmol/L (22-30); Chloride 101 mmol/L (98-107); Cholesterol 224 mg/dL (0-200); Creatine Kinase 95 U/L (55-170); Estimated Glomerular Filt Rate > 60; Glucose 101 mg/dL (65-110); HDL Direct 77 mg/dL; Iron 172 ug/dL (49-181); Osmolality Calculated 275 mOsm/kg (285-295); Potassium 4.9 mmol/L (3.4-5.0); Sodium 133 mmol/L (137-145); Total Protein 6.7 g/dL (6.3-8.2); Triglycerides 77 mg/dL (<150)
[2025-04-14 09:14] LABS: Hemoglobin A1C 5.0 % (<5.7)
[2025-04-14 09:23] LABS: Free T4 Free Thyroxine 0.87 ng/dL (0.78-2.19)
[2025-04-14 09:36] LABS: Prostate Specific Antigen 0.5 ng/mL (< OR = 4.0); Thyroid Stimulating Hormone 1.030 uIU/mL (0.465-4.680)
[2025-04-14 09:40] LABS: Ferritin 70.00 ng/mL (11.1-264)
[2025-04-14 09:56] LABS: Vitamin B12 679.0 pg/mL (239-931)
[2025-04-14 10:02] LABS: Add Urine Microscopic? NO; Appearance Urine Clear (Clear); Glucose Urine UA Negative (Negative); Leukocyte Esterase Ur Negative (Negative); Nitrate Urine Negative (Negative); Specific Grav Ur 1.010 (1.010-1.020)
[2025-04-15 08:14] LABS: Free T3 3.62 pg/mL (2.18-3.98)
[2025-04-17 16:08] LABS: Free Testosterone (Direct) 10.2 pg/mL (6.6-18.1)
== END 2025-04-14 08:03 | disposition home or self-care (01) ==
LOC: CHSLAB 08:03
PROVIDERS: PCP Internal Medicine; Visit Provider Internal Medicine
DX: Z00.00 Encounter for general adult medical examination without abnormal findings (principal); R73.01 Impaired fasting glucose; E78.00 Pure hypercholesterolemia, unspecified; Z12.5 Encounter for screening for malignant neoplasm of prostate; D64.9 Anemia, unspecified; I48.0 Paroxysmal atrial fibrillation; K51.00 Ulcerative (chronic) pancolitis without complications; E87.1 Hypo-osmolality and hyponatremia
CPT/HCPCS: 36415; 80053; 80061; 81003; 82533; 82550; 82607; 82728; 83036; 83540; 84153; 84402; 84403; 84439; 84443; 84481; 85027; G0103